=== PATIENT | male | born 1970 | race Caucasian/White ===

== ENCOUNTER 2018-08-23 20:10 | Inpatient (IN) ==
[2018-08-23] MEDS ORDERED: SODIUM CHLORIDE 0.9% 1000ML 1,000 ML IV ONE ×2 (20:13→20:56)
[2018-08-23] MEDS ORDERED: IBUPROFEN 600 MG TAB PO STA (20:19)
[2018-08-23 20:30] LABS: Hematocrit (blood only) 35.1 % (42-52); Hemoglobin 12.4 g/dL (14.0-18.0); Mean Corpuscular Hgb Conc 35.3 g/dL (32-36); Mean Corpuscular Volume 88.6 fL (80-100); Mean Platelet Volume 9.3 fL (7.4-10.4); Platelet Count 143 K/uL (130-400); RDW Coefficient of Variation 13.7 % (11.5-14.5); RDW Standard Deviation 44.4 fL (36.4-46.3); Red Blood Count 3.96 M/uL (4.7-6.1); White Blood Count 8.56 K/uL (4.8-10.8)
--- NOTE | 2018-08-23 20:40 | XRay Report ---
XR chest 1V portable HISTORY: Sepsis COMPARISON: None. FINDINGS: The lungs are clear. Cardiac silhouette is normal in size. No pleural effusions. No pneumot horax. IMPRESSION: No acute process. Electronically signed by: Tavon Gonsalves M.D. 08/23/2018 8:39 PM
[2018-08-23 20:42] LABS: INR 1.1 (0.9-1.1); Partial Thromboplastin Ratio 0.9; Partial Thromboplastin Time 24.2 Seconds (21.0-31.0)
[2018-08-23 20:48] LABS: Alanine Aminotransferase 26 U/L (12-78); Albumin Level 3.8 gm/dl (3.4-5.0); Aspartate Aminotransferase 30 U/L (15-37); BUN Creatinine Ratio 11.9 (10-20); Blood Urea Nitrogen 10 mg/dl (7-18); Calcium 9.1 mg/dl (8.5-10.1); Carbon Dioxide 24 mmol/L (21-32); Chloride 103 mmol/L (98-107); Creatinine Clr Calc Pharmacy 97.1 ml/min; Eosinophils # (auto) 0.01 K/uL (0-0.5); Eosinophils % (auto) 0.1 %; Est GFR (Non-African American) 101.8; Glucose 126 mg/dl (70-99); Immature Granulocytes # (auto) 0.05 K/uL (0.00-0.02); Immature Granulocytes % (auto) 0.6 %; Lymphocytes # (auto) 0.85 K/uL (1.2-3.4); Lymphocytes % (auto) 9.9 %; Magnesium 1.6 mg/dl (1.8-2.4); Monocytes # (auto) 0.48 K/uL (0.11-0.59); Monocytes % (auto) 5.6 %; Neutrophils # (auto) 7.17 K/uL (1.4-6.5); Neutrophils % (auto) 83.8 %; Potassium 3.6 mmol/L (3.5-5.1); Sodium 136 mmol/L (136-145)
[2018-08-23] MEDS ORDERED: MAGNESIUM SULFATE / D5W 1 GM/100 ML BAG IV ONE ×2 (20:50→23:58)
[2018-08-23 20:53] LABS: Albumin Globulin Ratio 0.8 (0.9-2); Alkaline Phosphatase 90 U/L (45-117); Bilirubin,Total 0.8 mg/dl (0.2-1); Creatine Kinase MB < 1.0 ng/ml (0.5-3.6); Globulin 4.5 gm/dl (2.5-4.0); Total Protein 8.3 gm/dl (6.4-8.2); Troponin I < 0.015 ng/ml (0-0.045)
--- NOTE | 2018-08-23 21:07 | CT Scan Report ---
HEAD CT NONCONTRAST CT DOSE: 614.27 mGy.cm HISTORY: syncope TECHNIQUE: Multiaxial CT images of the head were performed without the use of intravenous contrast. A utomated exposure control was utilized for this study. A dose lowering technique was utilized adheri ng to the principles of ALARA. Comparison: None. Findings: The paranasal sinuses and mastoid air cells are clear. The calvarium and skull base are int act. The ventricles and sulci are within normal limits. There is no mass, hematoma, midline shift, or acute infarct. Impression: No acute intracranial abnormality. Electronically signed by: Tavon Gonsalves M.D. 08/23/2018 9:06 PM
[2018-08-23 21:15] LABS: Influenza A virus by PCR Neg for Influ A (Neg); Influenza B virus by PCR Neg for Influ B (Neg)
[2018-08-23 21:51] LABS: Appearance Urine Clear (Clear); Bilirubin Urine Negative (Negative); Blood Urine Negative (Negative); Color Urine Yellow; Glucose Urine UA Negative (Negative); Ketones Urine Negative (Negative); Leukocyte Esterase Urine Negative (Negative); Nitrite Urine Negative (Negative); Protein Urine Negative (Negative); Specific Gravity Urine 1.011 (1.000-1.030); Urobilinogen Urine Negative (Negative)
--- NOTE | 2018-08-23 22:15 | Emergency Department Note ---
Entered by Merline Velázquez acting as a scribe for Kobe Reina DO History of Present Illness General Chief complaint: Illness Stated complaint: Period of unresponsiveness, tachycardia, fever Time Seen by Provider: 08/23/18 20:11 Source: patient and EMS History of Present Illness Onset (ago): day(s) (yesterday) Location: head, neck, upper extremity and lower extremity Quality: + other (illness) Associated symptoms: + fever/chills (fever of 103.6), + headaches (yesterday) and + other (Positive neck stiffness, fatigue, difficulty starting and maintaining urination. Negative abdominal pain, back pain, IV drug use, recent travel); no nausea/vomiting The patient is a 48 year old male who presents to the Emergency Room with complaints of an illness beginning yesterday. As per EMS, the patient's brother called the ambulance as the patient's brother had found him unresponsive in the bathroom. EMS reports the patient stated he had been having a difficult time sleeping lately, difficulty urinating since yesterday, and a fever of 103.6. The patient states he has fatigue, difficulty starting and maintaining urination, a fever, and chills. He states he has had a headache for the past couple of days and some neck stiffness. He denies any nausea, chest pain, SOB, cough, abdominal pain, back pain, IV drug use, recent travel. He reports he has never had anything like this in the past. EMS reports the patient has a history of drug abuse and he has used speed and cocaine in the past. The patient reports the last time he smoked marijuana was a few weeks [employer]. Home Medications Home Medications Medication Instructions Recorded Confirmed Type No Known Home Medications 08/23/18 08/23/18 History Allergies Allergy/AdvReac Type Severity Reaction Status Date / Time No Known Allergies Allergy Unverified 08/23/18 21:02 Past Med/Surg History Medical History No significant past medical history Surgical History No significant past surgical history Family History Other No pertinent family history Social History Feels Safe at Home: Yes Smoking Status: Current every day smoker Hx Substance Use: Yes substance use type: marijuana, crack/cocaine and amphetamines Review of Systems See HPI for pertinent positives & negatives. and A total of 10 systems reviewed and were otherwise negative Physical Exam Vital Signs Vital Signs - 24 hr 08/23/18 20:32 08/23/18 21:04 08/23/18 21:59 Temperature 39.8 C H 38.0 C H Temperature Source Oral Oral Sepsis Recent Fever Within 48 Hours Yes Sepsis Action Taken by Nursing Physician Notified Pulse Rate 124 H Pulse Rate [Bilateral] 106 H 104 H Pulse Rhythm Regular Pulse Rhythm [Bilateral] Regular Regular Pulse Strength Normal Pulse Strength [Bilateral] Normal Normal Respiratory Rate 28 H 25 H 24 Respiratory Effort / Characteristics Non-Labored Spontaneous Non-Labored Spontaneous Non-Labored Spontaneous Respiratory Depth Normal Normal Normal Respiratory Pattern Regular Regular Blood Pressure 112/57 L Blood Pressure [Right Arm] 98/55 L 97/59 L Blood Pressure Mean 75 Blood Pressure Mean [Right Arm] 69 71 Blood Pressure Position Sitting Blood Pressure Position [Right Arm] Sitting Sitting Pulse Oximetry 97 94 95 Oxygen Delivery Method Room Air Room Air Room Air GENERAL: Patient is awake, alert, and in no acute distress. Patient is resting comfortably and showing no signs of anxiety EYES: The conjunctivae are clear. The pupils are round and reactive. EARS, NOSE, MOUTH AND THROAT: The nose is without any evidence of any deformity. Mucous membranes are dry. Tongue is midline NECK: The neck is nontender and supple. RESPIRATORY: Lung sounds diminished in the left lung field. There is no evidence of wheezing rhonchi or rales to auscultation. CARDIOVASCULAR: Tachycardic rate and rhythm noted. There no murmurs rubs or g allops normal S1 normal S2 GASTROINTESTINAL: The abdomen is soft. Bowel sounds are present in all q uadrants. Abdomen is nontender. BACK: No midline tenderness or or step-off noted range of motion in flexion extension as well as rotation no signs of muscle spasm noted. MUSCULOSKELETAL/EXTREMITIES: There is no evidence of gross deformity. Full range of motion is noted in the hips and shoulders. SKIN: There is no obvious evidence of any rash. There are no petechiae, pallor or cyanosis noted. NEUROLOGIC: Patient is awake alert and oriented x3. Strength is symmetric. Patellar reflexes are 2+ bilaterally. Course 2012: The patient was evaluated in room B12, and a complete history and physical examination were performed. 2145: Dr. Mckay, [facility] Hospitalist was notified at this time. Administered Medications Discontinued Medications Sodium Chloride (Nss 1000ml) 1,000 mls @ 999 mls/hr IV .Q1H1M ONE Stop: 08/23/18 21:13 Last Infusion: 08/23/18 21:59 Dose: 0 mls/hr Documented by: [id number] Admin: 08/23/18 20:50 Dose: 999 mls/hr Documented by: [id number] Magnesium Sulfate/Dextrose (Magnesium Sulfate / D5w) 1 gm in 100 mls @ 100 mls/hr IV ONE ONE Stop: 08/23/18 21:49 Last Admin: 08/23/18 21:03 Dose: 100 mls/hr Documented by: [id number] Sodium Chloride (Nss 1000ml) 1,000 mls @ 999 mls/hr IV .Q1H1M ONE Stop: 08/23/18 21:56 Last Admin: 08/23/18 21:03 Dose: 999 mls/hr Documented by: [id number] Ibuprofen (Motrin) 600 mg PO NOW STA Stop: 08/23/18 20:20 Last Admin: 08/23/18 20:49 Dose: 600 mg Documented by: [id number] Medical Decision Making Differential Diagnosis Differential diagnosis: Etiologies such as viral syndrome, otitis, pharyngitis, pneumonia, influenza, meningitis, urinary tract infection, sepsis, bacteremia, as well as others were entertained. Medical Records Attestation: I reviewed the patient's medical records. Home Medications Current Medication List: was personally reviewed by me Laboratory Data Attestation: I reviewed the patient's lab results. Result diagrams: 08/23/18 19:40 08/23/18 19:40 Lab Results 08/23/18 08/23/18 08/23/18 Range/Units 19:40 19:40 19:40 WBC 8.56 (4.8-10.8) K/uL RBC 3.96 L (4.7-6.1) M/uL Hgb 12.4 L (14.0-18.0) g/dL Hct 35.1 L (42-52) % MCV 88.6 (80-100) fL MCH 31.3 (25-34) pg MCHC 35.3 (32-36) g/dL RDW Std Deviation 44.4 (36.4-46.3) fL RDW Coeff of Nathen 13.7 (11.5-14.5) % Plt Count 143 (130-400) K/uL MPV 9.3 (7.4-10.4) fL Immature Gran % (Auto) 0.6 % Neut % (Auto) 83.8 % Lymph % (Auto) 9.9 % Toombs % (Auto) 5.6 % Eos % (Auto) 0.1 % Baso % (Auto) 0.0 % Immature Gran # (Auto) 0.05 H (0.00-0.02) K/uL Neut # (Auto) 7.17 H (1.4-6.5) K/uL Lymph # (Auto) 0.85 L (1.2-3.4) K/uL [place]ombs # (Auto) 0.48 (0.11-0.59) K/uL Eos # (Auto) 0.01 (0-0.5) K/uL Baso # (Auto) 0.00 (0-0.2) K/uL Absolute Nucleated RBC 0.00 (0-0) K/uL Nucleated RBC % (auto) 0.0 % ESR 70 H (0-14) mm/hr PT 11.0 (9.0-12.0) Seconds INR 1.1 (0.9-1.1) APTT 24.2 (21.0-31.0) Seconds PTT Ratio 0.9 Sodium (136-145) mmol/L Potassium (3.5-5.1) mmol/L Chloride (98-107) mmol/L Carbon Dioxide (21-32) mmol/L Anion Gap (3-11) BUN (7-18) mg/dl Creatinine (0.6-1.4) mg/dl Est Cr Clr Drug Dosing ml/min Est GFR ( Amer) Est GFR (Non-Af Amer) BUN/Creatinine Ratio (10-20) Glucose (70-99) mg/dl Lactate (0.4-2.0) mmol/L Calcium (8.5-10.1) mg/dl Magnesium (1.8-2.4) mg/dl Total Bilirubin (0.2-1) mg/dl AST (15-37) U/L ALT (12-78) U/L Alkaline Phosphatase (45-117) U/L CK-MB (CK-2) (0.5-3.6) ng/ml Troponin I (0-0.045) ng/ml C-Reactive Protein (0-0.29) mg/dl Total Protein (6.4-8.2) gm/dl Albumin (3.4-5.0) gm/dl Globulin (2.5-4.0) gm/dl Albumin/Globulin Ratio (0.9-2) Procalcitonin (0-0.5) ng/ml Urine Color Urine Appearance (Clear) Urine pH (4.5-7.5) Ur Specific Wynona (1.000-1.030) Urine Protein (Negative) Urine Glucose (UA) (Negative) Urine Ketones (Negative) Urine Blood (Negative) Urine Nitrite (Negative) Urine Bilirubin (Negative) Urine Urobilinogen (Negative) Ur Leukocyte Esterase (Negative) Influenza Type A (PCR) (Neg) Influenza Type B (PCR) (Neg) 08/23/18 08/23/18 08/23/18 Range/Units 19:40 19:40 20:25 WBC (4.8-10.8) K/uL RBC (4.7-6.1) M/uL Hgb (14.0-18.0) g/dL Hct (42-52) % MCV (80-100) fL MCH (25-34) pg MCHC (32-36) g/dL RDW Std Deviation (36.4-46.3) fL RDW Coeff of Nathen (11.5-14.5) % Plt Count (130-400) K/uL MPV (7.4-10.4) fL Immature Gran % (Auto) % Neut % (Auto) % Lymph % (Auto) % Toombs % (Auto) % Eos % (Auto) % Baso % (Auto) % Immature Gran # (Auto) (0.00-0.02) K/uL Neut # (Auto) (1.4-6.5) K/uL Lymph # (Auto) (1.2-3.4) K/uL [place]ombs # (Auto) (0.11-0.59) K/uL Eos # (Auto) (0-0.5) K/uL Baso # (Auto) (0-0.2) K/uL Absolute Nucleated RBC (0-0) K/uL Nucleated RBC % (auto) % ESR (0-14) mm/hr PT (9.0-12.0) Seconds INR (0.9-1.1) APTT (21.0-31.0) Seconds PTT Ratio Sodium 136 (136-145) mmol/L Potassium 3.6 (3.5-5.1) mmol/L Chloride 103 (98-107) mmol/L Carbon Dioxide 24 (21-32) mmol/L Anion Gap 9.0 (3-11) BUN 10 (7-18) mg/dl Creatinine 0.86 (0.6-1.4) mg/dl Est Cr Clr Drug Dosing 97.1 ml/min Est GFR ( Amer) 118.0 Est GFR (Non-Af Amer) 101.8 BUN/Creatinine Ratio 11.9 (10-20) Glucose 126 H (70-99) mg/dl Lactate (0.4-2.0) mmol/L Calcium 9.1 (8.5-10.1) mg/dl Magnesium 1.6 L (1.8-2.4) mg/dl Total Bilirubin 0.8 (0.2-1) mg/dl AST 30 (15-37) U/L ALT 26 (12-78) U/L Alkaline Phosphatase 90 (45-117) U/L CK-MB (CK-2) < 1.0 (0.5-3.6) ng/ml Troponin I < 0.015 (0-0.045) ng/ml C-Reactive Protein 0.90 H (0-0.29) mg/dl Total Protein 8.3 H (6.4-8.2) gm/dl Albumin 3.8 (3.4-5.0) gm/dl Globulin 4.5 H (2.5-4.0) gm/dl Albumin/Globulin Ratio 0.8 L (0.9-2) Procalcitonin 0.18 (0-0.5) ng/ml Urine Color Urine Appearance (Clear) Urine pH (4.5-7.5) Ur Specific Wyn[place] (1.000-1.030) Urine Protein (Negative) Urine Glucose (UA) (Negative) Urine Ketones (Negative) Urine Blood (Negative) Urine Nitrite (Negative) Urine Bilirubin (Negative) Urine Urobilinogen (Negative) Ur Leukocyte Esterase (Negative) Influenza Type A (PCR) Neg for Influ A (Neg) Influenza Type B (PCR) Neg for Influ B (Neg) 08/23/18 08/23/18 Range/Units 20:51 21:18 WBC (4.8-10.8) K/uL RBC (4.7-6.1) M/uL Hgb (14.0-18.0) g/dL Hct (42-52) % MCV (80-100) fL MCH (25-34) pg MCHC (32-36) g/dL RDW Std Deviation (36.4-46.3) fL RDW Coeff of Nathen (11.5-14.5) % Plt Count (130-400) K/uL MPV (7.4-10.4) fL Immature Gran % (Auto) % Neut % (Auto) % Lymph % (Auto) % [place]ombs % (Auto) % Eos % (Auto) % Baso % (Auto) % Immature Gran # (Auto) (0.00-0.02) K/uL Neut # (Auto) (1.4-6.5) K/uL Lymph # (Auto) (1.2-3.4) K/uL Toombs # (Auto) (0.11-0.59) K/uL Eos # (Auto) (0-0.5) K/uL Baso # (Auto) (0-0.2) K/uL Absolute Nucleated RBC (0-0) K/uL Nucleated RBC % (auto) % ESR (0-14) mm/hr PT (9.0-12.0) Seconds INR (0.9-1.1) APTT (21.0-31.0) Seconds PTT Ratio Sodium (136-145) mmol/L Potassium (3.5-5.1) mmol/L Chloride (98-107) mmol/L Carbon Dioxide (21-32) mmol/L Anion Gap (3-11) BUN (7-18) mg/dl Creatinine (0.6-1.4) mg/dl Est Cr Clr Drug Dosing ml/min Est GFR ( Amer) Est GFR (Non-Af Amer) BUN/Creatinine Ratio (10-20) Glucose (70-99) mg/dl Lactate 1.2 (0.4-2.0) mmol/L Calcium (8.5-10.1) mg/dl Magnesium (1.8-2.4) mg/dl Total Bilirubin (0.2-1) mg/dl AST (15-37) U/L ALT (12-78) U/L Alkaline Phosphatase (45-117) U/L CK-MB (CK-2) (0.5-3.6) ng/ml Troponin I (0-0.045) ng/ml C-Reactive Protein (0-0.29) mg/dl Total Protein (6.4-8.2) gm/dl Albumin (3.4-5.0) gm/dl Globulin (2.5-4.0) gm/dl Albumin/Globulin Ratio (0.9-2) Procalcitonin (0-0.5) ng/ml Urine Color Yellow Urine Appearance Clear (Clear) Urine pH 7.0 (4.5-7.5) Ur Specific Wyn[place] 1.011 (1.000-1.030) Urine Protein Negative (Negative) Urine Glucose (UA) Negative (Negative) Urine Ketones Negative (Negative) Urine Blood Negative (Negative) Urine Nitrite Negative (Negative) Urine Bilirubin Negative (Negative) Urine Urobilinogen Negative (Negative) Ur Leukocyte Esterase Negative (Negative) Influenza Type A (PCR) (Neg) Influenza Type B (PCR) (Neg) Imaging Data Radiologist's Impression: Radiology results as stated below per my review and the radiologist's interpretation: XR chest 1V portable HISTORY: Sepsis COMPARISON: None. FINDINGS: The lungs are clear. Cardiac silhouette is normal in size. No pleural effusions. No pneumothorax. IMPRESSION: No acute process. Electronically signed by: Tavon Gonsalves M.D. 08/23/2018 8:[address]AST CT DOSE: 614.27 mGy.cm HISTORY: syncope TECHNIQUE: Multiaxial CT images of the head were performed without the use of intravenous contrast. Automated exposure control was utilized for this study. A dose lowering technique was utilized adhering to the principles of ALARA. Comparison: None. Findings: The paranasal sinuses and mastoid air cells are clear. The calvarium and skull base are intact. The ventricles and sulci are within normal limits. There is no mass, hematoma, midline shift, or acute infarct. Impression: No acute intracranial abnormality. Electronically signed by: Tavon Gonsalves M.D. 08/23/2018 9:06 PM ECG Data Attestation: I personally reviewed and interpreted this ECG as follows: Indication: altered mental status Rate (beats per minute): 117 Rhythm: sinus tachycardia Findings: + other (no acute ST segments ); no ectopy Comparison ECG Date: no prior available Blood Pressure Blood Pressure Findings: Low blood pressure Blood Pressure Disposition: further management by hospitalist SUKH Borrero The patient is a 48-year-old male who presented to the emergency department by ambulance for an evaluation. The patient was found by his brother sleeping. It was difficult to arouse the patient. The ambulance was called out initially as an altered mental status. When they arrived on scene the patient was awake and alert. He was tachycardic and was found to have a fever. I received a medical command call because they wanted to give the patient IV Tylenol and IV fluids. The patient was given a gram of IV Tylenol as well as a liter of normal saline. The patient arrives at the emergency department awake and alert. He does state that he has had chills as well as generalized weakness for the last 24-48 hours. He has no other specific complaints. He did not complain of any back pain or chest pain. He denied having any trouble breathing. He denied having any rash or recent traveling. He was found to have tachycardia and low blood pressure. He was treated with further IV fluids in the emergency department. He was also given Motrin. At this time no definite source for the patient's fever could be found. His white blood cell count is not significantly elevated. He did have a mild anemia. He denies any current IV drug abuse. His chest x-ray showed no si gns of pneumonia and his urinalysis did not appear to be consistent with urinary tract infection. Further testing is still pending. I will defer antibiotic coverage at this time until the patient can be evaluated by the admitting team. I discussed with the on-call [facility] hospitalist. They have agreed to evaluate the patient in the emergency department for further management and disposition. The patient was treated with IV magnesium. Impression & Plan Fever, Hypotension, Hypomagnesemia Discharge Plan Visit Data Chief Complaint: Illness Stated Complaint: Period of unresponsiveness, tachycardia, fever ED Provider: Kobe Reina Discharge Problem: Fever, Hypotension, Hypomagnesemia Patient Disposition: Being Evaluated by Hospitalist Forms Stand Alone Forms: My [facility] Prescriptions Prescriptions: No Action No Known Home Medications RF: 0 Referrals Referrals: PCP,NO [Primary Care Provider] - Discharge Problem: Fever Qualifiers: Fever type: unspecified Qualified Code(s): R50.9 - Fever, unspecified Hypotension Qualifiers: Hypotension type: unspecified hypotension type Qualified Code(s): I95.9 - Hypotension, unspecified The scribe's documentation has been prepared under my direction and personally reviewed by me in its entirety. I confirm that the note above accurately refl ects all work, treatment, procedures, and medical decision making performed by me.
[2018-08-23 22:24] LABS: Amphetamines+Metham, Urine Pos (Neg); Barbiturates, Urine Neg (Neg); Benzodiazepine, Urine Neg (Neg); Cocaine, Urine Neg (Neg); MDMA (Ecstacy), Urine Neg (Neg); Methadone, Urine Neg (Neg); Opiate, Urine Neg (Neg); Phencyclidine, Urine Neg (Neg)
[2018-08-23 22:34] LABS: Lyme Ab IgG w/WB Rflx Negative (Negative); Lyme Ab IgM w/WB Rflx Negative (Negative)
--- NOTE | 2018-08-23 23:01 | History & Physical Report ---
Date of Service August 23, 2018 Assessment & Plan (1) Fever: 48yo previously healthy male presents with f/c, fatigue and urinary hesitancy x 2 days. Fever and fatigue in the setting of urinary symptoms concerning for likely prostatitis -Febrile to 39.8, tachycardic 100s-120s, mildly hypotensive with normal WBC -Lactate and procal normal -ESR and CRP elevated -UA negative -UCx ordered -BC x 2 pending -CXR negative -CT head negative -Lyme and influenza negative -Ehrlichiosis testing pending -Rectal exam concerning for prostatitis -Received 3L NS IVFs and iburprofen 600mg in the ED -Started on Levaquin 500mg IV daily -Continue IVFs NS 100cc/hr Tachycardia and mild hypotension likely in the setting of infection as above -No cp or sob reported -Troponin negative -EKG 117 sinus tach Qtc 412 Concern for possible amphetamine use which could also explain fever and tachycardia -Utox positive for amphetamines (reported to have used in the past in the ED) Anemia -Hgb 12.4, MCV 88 -Hemeoccult positive but in the setting of multiple external hemorrhoids possibly hemorrhoidal in nature, no hematochezia/melena reported and no GI symptoms -Continue to monitor CBC -Consider outpatient work up if remains stable Hypomagnesemia -Mag 1.6 -Received 1gm Mag sulfate in the ED -1gm Mag sulfate IV ordered DVT prop: SCDs only and encourage ambulation Code: Full Dispo: med/surg telemetry (2) Hypomagnesemia: (3) Prostatitis: History of Present Illness Chief Complaint: Unresponsiveness Primary Care Provider: NO PCP 48yo previously healthy male presents with fever, chills, fatigue and urinary hesitancy x 2 days. Describes difficulty starting and maintaining urinary stream with mild discomfort "feels like a pinch" but no burning sensation x 2 days. A/w fever, chills and headache. Had 2 episodes of headache 2 days ago and yesterday, frontal 7-8/10, sharp in nature, not associated with photophobia/phonophobia, or nausea. Denies dizziness, cp, sob, abdominal pain, n/v, d/c, hematochezia, dark stools, hematuria. No falls or LOC. Surgical hx: appendectomy in 1988 and tonsillectomy in 1976 Social hx: smokes 6 cig/day now, smoking for >25 yrs >1 pack/day, alcohol use decreased in recent years only had 4 beers in 2018, reports smoking marijuana last used 3 weeks ago, denied any other recreational drug use Allergies Allergy/AdvReac Type Severity Reaction Status Date / Time No Known Allergies Allergy Unverified 08/23/18 21:02 Home Medications Home Medications Medication Instructions Recorded Confirmed Type No Known Home Medications 08/23/18 08/23/18 History Past Med/Surg History Medical History No significant past medical history Surgical History No significant past surgical history Family History Other No pertinent family history Social History Preferred Language: Salvadorean Communication Ability: Effective General Dentist/Owner Required: No Beliefs That Will Affect Care: None Current Living Situation: Family Current Living Situation Comment: brother Feels Safe at Home: Yes Safety Concerns: Feels Safe At This Time Smoking Status: Current every day smoker Tobacco Type: cigarettes Cigarettes Per Day: 6-7 Hx Alcohol Use: No Hx Substance Use: Yes substance use type: marijuana Review of Systems Review of Systems: As per HPI Physical Exam Physical Exam: General: In NAD HEENT: PERRL, nares clear, moist mucous membranes CV: RRR, no m/r/g PULM: Bibasilar mild crackles appreciated, equal breath sounds bilaterally ABDOMEN: +BS, non-distended, non-tender to palpation in all quadrants LE: no calf TTP, no LE edema Rectal exam: moderately boggy and tender prostate Results & Data Vital Signs (Past 12 Hours) Vital Signs Temp Pulse Pulse Resp BP BP Pulse Ox 08/23/18 21:59 38.0 C H 104 H 24 97/59 L 95 08/23/18 21:04 106 H 25 H 98/55 L 94 08/23/18 20:32 39.8 C H 124 H 28 H 112/57 L 97 Laboratory Results Abnormal lab results 08/23/18 08/23/18 08/23/18 Range/Units 19:40 19:40 19:40 RBC 3.96 L (4.7-6.1) M/uL Hgb 12.4 L (14.0-18.0) g/dL Hct 35.1 L (42-52) % Immature Gran # (Auto) 0.05 H (0.00-0.02) K/uL Neut # (Auto) 7.17 H (1.4-6.5) K/uL Lymph # (Auto) 0.85 L (1.2-3.4) K/uL ESR 70 H (0-14) mm/hr Glucose 126 H (70-99) mg/dl Magnesium 1.6 L (1.8-2.4) mg/dl C-Reactive Protein 0.90 H (0-0.29) mg/dl Total Protein 8.3 H (6.4-8.2) gm/dl Globulin 4.5 H (2.5-4.0) gm/dl Albumin/Globulin Ratio 0.8 L (0.9-2) U Amphetamin/Meth Scrn (Neg) 08/23/18 Range/Units 21:18 RBC (4.7-6.1) M/uL Hgb (14.0-18.0) g/dL Hct (42-52) % Immature Gran # (Auto) (0.00-0.02) K/uL Neut # (Auto) (1.4-6.5) K/uL Lymph # (Auto) (1.2-3.4) K/uL ESR (0-14) mm/hr Glucose (70-99) mg/dl Magnesium (1.8-2.4) mg/dl C-Reactive Protein (0-0.29) mg/dl Total Protein (6.4-8.2) gm/dl Globulin (2.5-4.0) gm/dl Albumin/Globulin Ratio (0.9-2) U Amphetamin/Meth Scrn Pos H (Neg) Code Status & VTE Plan Code Status Full VTE Prophylaxis Plan VTE Prophylaxis will be ordered: Yes Reason for no VTE drug order: Contraindicated Supervising Physician Co-Signing Physician Notes Attending addendum: I have physically seen this patient, have supervised the medical residents activities, and agree with the H&P unless as otherwise noted. Assessment and Plan: Symptoms suggestive of possible developing sepsis/fever/fatigue/tachycardia/mild hypotension/main complaint is urinary hesitancy and discomfort- Follow urine culture and sensitivity. Follow blood cultures. At PSA. Placed empirically on Levaquin 500 mg IV daily. Continue rehydration with normal saline 100 cc/h. Monitor urine drug screen for confirmation or refutation of amphetamine use. Hypomagnesemia repleted both orally and IV. Remainder of orders and notations as noted. (1) Fever Fever type: unspecified Qualified Code(s): R50.9 - Fever, unspecified
[2018-08-23 23:11] LABS: Prostate Specific Antigen 0.342 ng/ml (0-4)
[2018-08-23] MEDS ORDERED: ONDANSETRON INJ 2 MG/ML 2 ML VIAL IV PRN (23:58)
[2018-08-23] MEDS ORDERED: POLYETHYLENE (MIRALAX) 17 GM PACK PO PRN (23:58)
[2018-08-23] MEDS ORDERED: ALUMINUM/MAGNESIUM SUSP 30 ML UDC PO PRN (23:58)
[2018-08-24] MEDS: LEVOFLOXACIN/D5W 500 MG/100 ML BAG IV SCH (00:41)
[2018-08-24] MEDS: SODIUM CHLORIDE 0.9% 1000ML 1,000 ML IV SCH ×3 (00:41→22:28)
[2018-08-24] MEDS: ACETAMINOPHEN 325 MG TAB PO PRN ×2 (05:45→15:35)
[2018-08-24 07:16] LABS: Basophils # (auto) 0.01 K/uL (0-0.2); Basophils % (auto) 0.1 %; Hematocrit (blood only) 30.7 % (42-52); Hemoglobin 10.6 g/dL (14.0-18.0); Immature Granulocytes # (auto) 0.09 K/uL (0.00-0.02); Lymphocytes % (auto) 8.9 %; Mean Corpuscular Hgb Conc 34.5 g/dL (32-36); Mean Corpuscular Volume 90.3 fL (80-100); Mean Platelet Volume 8.9 fL (7.4-10.4); Monocytes # (auto) 0.53 K/uL (0.11-0.59); Monocytes % (auto) 5.9 %; Neutrophils # (auto) 7.51 K/uL (1.4-6.5); Neutrophils % (auto) 84.1 %; Platelet Count 106 K/uL (130-400); RDW Coefficient of Variation 13.7 % (11.5-14.5); RDW Standard Deviation 45.2 fL (36.4-46.3); White Blood Count 8.94 K/uL (4.8-10.8)
[2018-08-24 07:43] LABS: BUN Creatinine Ratio 18.5 (10-20); Calcium 8.3 mg/dl (8.5-10.1); Creatinine Clr Calc Pharmacy 141.6 ml/min; Est GFR (African American) 137.8; Est GFR (Non-African American) 118.9; Potassium 3.2 mmol/L (3.5-5.1)
[2018-08-24] MEDS ORDERED: POTASSIUM CHLORIDE 20 MEQ TABCR PO STA (08:20)
[2018-08-24] MEDS ORDERED: Nursing to Pharmacy Communication ONE ×2 (16:21→23:25)
--- NOTE | 2018-08-24 17:10 | Hospitalist Progress Note ---
Date of Service August 24, 2018 Assessment & Plan (1) Sepsis: 48-year-old white male was admitted last night on August 23, 2018 because of sepsis and associated mental status changes and hypotensive which fit possible early sepsis, and he was found has source of infection possible from proctitis, has been on antibiotic of Levaquin, he continues spiking fever this afternoon morning 38.2, will continue supportive care IV fluid IV antibiotic and follow for culture and sensitivity the floor because of treatment for acute prostatitis possible 3 weeks, prescription. We will continue current antibiotic, infectious disease consultation if needed (2) Fever: See above (3) Hypomagnesemia: Replaced (4) Prostatitis: See above DVT and prophylaxis, increase activity and PT OT, (5) Anemia: Etiology unknown, with a history of hemorrhoid stool Hemoccult positive, will check iron panel, vitamin B12 folate acid level, (6) Hypokalemia: Will review and follow-up, (7) Hypotensive episode: Likely because of sepsis, is improving, (8) GI bleeding: Likely from hemorrhoid, will continue follow-up Subjective Generally feeling tired but fair appetite, no more confused, still spiking fever, Review of Systems Review of Systems: All systems reviewed & are unremarkable except as noted in HPI & below Physical Exam Physical Exam: General Appearance: Lethargic tired, much older than his age, no apparent distress, Eyes: normal inspection, PERRL, EOMI, sclerae normal ENT: normal ENT inspection, hearing grossly normal, pharynx normal Neck: supple, no adenopathy, thyroid normal, no JVD, no carotid bruits, trachea midline Respiratory/Chest: chest non-tender, decreased breath sounds, no respiratory distress, no accessory muscle use, rales, wheezing Cardiovascular: regular rate, rhythm, no JVD, no murmur Abdomen: normal bowel sounds, non tender, soft, no organomegaly, Extremities: normal range of motion, non-tender, normal inspection, no pedal edema, no calf tenderness, normal capillary refill, pelvis stable, joint has no limited range of motion, capillary refill is normal, no cyanosis clubbing Neurologic/Psychiatric: circus 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
[2018-08-24 18:21] LABS: Iron 17 mcg/dl (35-175)
[2018-08-24 18:27] LABS: Folate (Folic Acid) 8.33 ng/ml (>5.38)
[2018-08-25] MEDS: LEVOFLOXACIN/D5W 500 MG/100 ML BAG IV SCH ×2 (01:47→23:31)
[2018-08-25] MEDS: ACETAMINOPHEN 325 MG TAB PO PRN ×4 (05:15→23:30)
[2018-08-25] MEDS ORDERED: OXYCODONE HCL IR 5 MG TAB (IMMEDIATE RELEASE) PO STA (05:43)
[2018-08-25] MEDS: SODIUM CHLORIDE 0.9% 1000ML 1,000 ML IV SCH ×3 (05:59→19:42)
[2018-08-25 08:24] LABS: BUN Creatinine Ratio 17.4 (10-20); Calcium 8.5 mg/dl (8.5-10.1); Creatinine Clr Calc Pharmacy 149.2 ml/min; Est GFR (African American) 140.8; Est GFR (Non-African American) 121.5; Magnesium 2.2 mg/dl (1.8-2.4); Potassium 3.3 mmol/L (3.5-5.1)
[2018-08-25 08:27] LABS: Albumin Globulin Ratio 0.7 (0.9-2); Bilirubin,Total 0.7 mg/dl (0.2-1); Globulin 4.1 gm/dl (2.5-4.0); Phosphorus 1.8 mg/dl (2.5-4.9); Total Protein 7.1 gm/dl (6.4-8.2)
--- NOTE | 2018-08-25 10:47 | Infectious Disease Consult ---
Date of Consultation August 25, 2018 Assessment & Plan (1) Gram positive sepsis: Patient with clinical picture of gram-positive sepsis, with symptomatology suggestive of prostatitis but urinalysis speaks against this diagnosis. Not clear whether blood culture represents contaminant or true pathogen. Has clinically improved with levofloxacin. Would continue for now and await final identification and repeat blood culture results. Studies for Anaplasma ordered. Will follow. History of Present Illness Reason for Consultation: Bacteremia Attending Physician: Kedar Aguero MD, PhD, [facility] History of Present Illness 48-year-old male in prior good health was well until 2-3 days prior to admission when he began to notice difficulty with urination with difficulty starting and maintaining his urine stream. No significant associated dysuria or flank pain. Patient then developed fever with chills, headache, body aches, and eventually was found poorly responsive by his brother and brought to the hospital for further management. He was felt to have acute prostatitis and started on levofloxacin and has improved clinically. Was febrile last night, but this morning afebrile and feeling better. Now urinating almost normally. Single culture from admission growing gram-positive cocci. Of note is decrease in abrahan telet count from admission. Liver enzymes normal. Urinalysis without pyuria or hematuria. No other significant travel or exposure history. No known tick bites. Lyme serology negative. Allergies Allergy/AdvReac Type Severity Reaction Status Date / Time No Known Allergies Allergy Unverified 08/23/18 21:02 Home Medications Home Medications Medication Instructions Recorded Confirmed Type No Known Home Medications 08/23/18 08/23/18 History Patient History Medical History No significant past medical history Surgical History No significant past surgical history Family History Other No pertinent family history Social History Preferred Language: Nepali Communication Ability: Effective Auto Inspector Required: No Beliefs That Will Affect Care: None Current Living Situation: Family Current Living Situation Comment: brother Feels Safe at Home: Yes Safety Concerns: Feels Safe At This Time Smoking Status: Current every day smoker Tobacco Type: cigarettes Cigarettes Per Day: 6-7 Hx Alcohol Use: No Hx Substance Use: Yes substance use type: marijuana Review of Systems Review of Systems: All systems reviewed & are unremarkable except as noted in HPI & below Physical Exam Constitutional: WD/WN, vitals as above comfortable; no acute distress Eyes: PERRL, conjunctivae normal, anicteric sclerae ENMT: external ear and nose normal, oropharynx normal Neck: trachea midline, no thyromegaly neck nontender Respiratory: normal respiratory effort, lungs clear to auscultation normal percussion; does not use accessory muscles Cardiovascular: Rate/Rhythm: regular rate and regular rhythm Heart Sounds: normal S1 and normal S2; no gallop, no murmur and no cardiac rub Vessels: normal peripheral pulses; no JVD Gastrointestinal (Abdomen): normal bowel sounds, soft, nontender, no hepatosplenomegaly Musculoskeletal: no cyanosis or clubbing, extremities motor strength 5/5 Spine: thoracic spine normal to inspection and lumbar spine normal to inspection; no cervical spinal tenderness Skin: no rashes, warm and dry normal turgor; no lesions Neurologic: patellar DTR's 2+ bilat, sensation intact no focal motor deficits Psychiatric: A+Ox3, euthymic affect Orientation: cooperative Lymphatic: no cervical or axillary lymphadenopathy no inguinal lymphadenopathy Results & Data Vital Signs (Past 12 Hours) Vital Signs Temp Pulse Pulse Resp BP BP Pulse Ox 08/25/18 07:43 95 H 08/25/18 07:00 37.4 C 103 H 18 102/57 L 96 08/25/18 00:00 101 H 08/24/18 23:44 37.8 C H 104 H 18 108/65 98 Laboratory Results BMP 08/25/18 07:35 Sodium 137 Potassium 3.3 L Chloride 109 H Carbon Dioxide 21 BUN 10 Creatinine 0.56 L Glucose 103 H Calcium 8.5 Liver Function 08/25/18 Range/Units 07:35 Total Bilirubin 0.7 (0.2-1) mg/dl AST 32 (15-37) U/L ALT 24 (12-78) U/L Alkaline Phosphatase 67 (45-117) U/L Albumin 3.0 L (3.4-5.0) gm/dl Diagnostic Findings Microbiology 08/23/18 20:51 Blood Blood Culture - Preliminary No growth to date. 08/23/18 20:51 Blood Blood Culture - Preliminary Gram positive cocci XR chest 1V portable HISTORY: Sepsis COMPARISON: None. FINDINGS: The lungs are clear. Cardiac silhouette is normal in size. No pleural effusions. No pneumothorax. IMPRESSION: No acute process. Electronically signed by: Tavon Gonsalves M.D. 08/23/2018 8:39 PM Dictated: 08/23/182037 Transcribed: 08/23/182037
--- NOTE | 2018-08-25 17:17 | Hospitalist Progress Note ---
Date of Service August 25, 2018 Assessment & Plan (1) Sepsis: 48-year-old white male was admitted last night on August 23, 2018 because of sepsis and associated mental status changes and hypotensive which fit possible early sepsis, and he was found has source of infection possible from proctitis, 1 out of 2 blood culture positive for gram positive cocci, which support the diagnosis of bacteremia has been on antibiotic of Levaquin, he continues spiking fever this afternoon morning 38.2 after admission, however T-max was trends down, today has no more spiking fever Infectious disease input appreciated, repeated blood culture were sent will continue supportive care IV fluid IV antibiotic and follow for culture and sensitivity because of treatment for acute prostatitis possible 3 weeks, prescription. (2) Fever: See above (3) Hypomagnesemia: Replaced (4) Prostatitis: See above DVT and prophylaxis, increase activity and PT OT, (5) Anemia: Etiology unknown, with a history of hemorrhoid stool Hemoccult positive, will check iron panel, vitamin B12 folate acid level, (6) Hypokalemia: replaced and follow-up, (7) Hypotensive episode: Likely because of sepsis, is improving/resolved (8) GI bleeding: Likely from hemorrhoid, will continue follow-up (9) Bacteremia: 1 out of 2 tube positive of gram-positive cocci, will follow up, repeat blood culture sent (10) Left facial pain: Associated with lower jaw posterior to local tenderness in physical exam, possible periodontal or tooth abscess, will check x-ray and follow-up, oral surgeon consult if needed And add metronidazole for possible dental abscess Subjective No more dysuria urgency or frequency Complaint left lower jaw tingling anomalies and local tenderness, history of toothache, otherwise afebrile Review of Systems Review of Systems: All systems reviewed & are unremarkable except as noted in HPI & below Physical Exam Physical Exam: General Appearance: Lethargic tired, much older than his age, no apparent distress, Eyes: normal inspection, PERRL, EOMI, sclerae normal ENT: normal ENT inspection, hearing grossly normal, pharynx normal left lower jaw posterior area local tenderness Neck: supple, no adenopathy, thyroid normal, no JVD, no carotid bruits, trachea midline Respiratory/Chest: chest non-tender, decreased breath sounds, no respiratory distress, no accessory muscle use, rales, wheezing Cardiovascular: regular rate, rhythm, no JVD, no murmur Abdomen: normal bowel sounds, non tender, soft, no organomegaly, Extremities: normal range of motion, non-tender, normal inspection, no pedal edema, no calf tenderness, normal capillary refill, pelvis stable, joint has no limited range of motion, capillary refill is normal, no cyanosis clubbing Neurologic/Psychiatric: scientific editor II-XII nml as tested, no motor/sensory deficits, alert, normal mood/affect, oriented x 3 Skin: normal color, warm/dry, no rash Lymphatic: no adenopathy Results & Data Vital Signs (Past 12 Hours) Vital Signs Temp Pulse Pulse Resp BP BP Pulse Ox 08/25/18 15:14 88 08/25/18 15:00 37.1 C 100 H 107/70 100 08/25/18 12:00 36.7 C 85 18 101/64 100 08/25/18 07:43 95 H 08/25/18 07:00 37.4 C 103 H 18 102/57 L 96 (1) Fever Fever type: unspecified Qualified Code(s): R50.9 - Fever, unspecified
[2018-08-25] MEDS ORDERED: POTASSIUM PHOS 3 MMOL/1 ML INFUSION IV STA (17:18)
[2018-08-25] MEDS ORDERED: POTASSIUM CHLORIDE 10 MEQ TABCR PO STA (17:18)
[2018-08-25] MEDS ORDERED: POTASSIUM PHOSPHATE 21 MMOL in SODIUM CHLORIDE 0.9% 500 ML IV ONE (17:30)
[2018-08-25] MEDS: metroNIDAZOLE 500 MG/100 ML BAG IV SCH (18:36)
--- NOTE | 2018-08-25 18:36 | XRay Report ---
XR mandible min 4V routine CLINICAL HISTORY: left lower jaw posterior to local tenderness COMPARISON STUDY: No previous studies for comparison. FINDINGS: 5 views of mandible are provided for interpretation. No fractures or destructive lesions ar e visualized. There is no evidence for TMJ dislocation. There is a possible right molar dental caries . IMPRESSION: 1. No fractures dislocations or destructive lesions are visualized. Electronically signed by: Shaquille Madrigal M.D. 08/25/2018 6:35 PM
[2018-08-25] MEDS ORDERED: KETOROLAC TROMETHAMINE 15 MG/ML VIAL IV ONE (23:40)
[2018-08-26] MEDS ORDERED: KETOROLAC TROMETHAMINE 15 MG/ML VIAL ONE (00:02)
[2018-08-26] MEDS: metroNIDAZOLE 500 MG/100 ML BAG IV SCH ×2 (01:53→10:07)
[2018-08-26] MEDS: SODIUM CHLORIDE 0.9% 1000ML 1,000 ML IV SCH ×2 (04:29→07:49)
[2018-08-26] MEDS: KETOROLAC TROMETHAMINE 15 MG/ML VIAL IV PRN ×2 (08:44→15:14)
[2018-08-26 09:14] LABS: BUN Creatinine Ratio 14.8 (10-20); Calcium 8.6 mg/dl (8.5-10.1); Creatinine Clr Calc Pharmacy 130.5 ml/min; Est GFR (African American) 133.3; Magnesium 2.1 mg/dl (1.8-2.4)
--- NOTE | 2018-08-26 15:00 | Hospitalist Progress Note ---
Date of Service August 26, 2018 Assessment & Plan (1) Sepsis: 48-year-old white male was admitted last night on August 23, 2018 because of sepsis and associated mental status changes and hypotensive which fit possible early sepsis, and he was found possible source of infection possible from proctitis, Possible oral abscess, with left lower jaw swelling, sign of pain started from yesterday and was report of left lower jaw, however today has significant swelling possible local abscess, x-ray yesterday was unremarkable, 1 out of 2 blood culture positive for gram positive cocci, which support the diagnosis of bacteremia initially has been on antibiotic of Levaquin, was spiking fever 2 days ago, was 38.2 after admission, T-max was trends down, today has no more spiking fever talked Infectious disease, changed antibiotic to Unasyn will continue supportive care IV fluid , IV antibiotic and follow for culture and sensitivity because of treatment for acute prostatitis possible 3 weeks, prescription. Will order maxillofacial CT to rule out abscess, (2) Fever: See above (3) Hypomagnesemia: Replaced (4) Prostatitis: See above DVT and prophylaxis, increase activity and PT OT, (5) Anemia: Etiology unknown, with a history of hemorrhoid stool Hemoccult positive, checked iron panel, vitamin B12 folate acid level, were unremarkable (6) Hypokalemia: replaced and follow-up, (7) Hypotensive episode: Likely because of sepsis, is improving/resolved (8) GI bleeding: Likely from hemorrhoid, will continue follow-up (9) Bacteremia: 1 out of 2 tube positive of gram-positive cocci, will follow up, repeat blood culture sent (10) Left facial pain: Now is obvious possible left mandible soft tissue infection and possible facial abscess, x-ray is no acute fracture Check CT of the left maxillofacial area, oral surgeon consult if there is abscess, follow-up Subjective Left lower jaw and surrounding soft tissue swelling , associated limited opening abnormalities, feel tired", Review of Systems Review of Systems: All systems reviewed & are unremarkable except as noted in HPI & below Physical Exam Physical Exam: general Appearance: obesity, mild pale, much older than her age, no apparent distress, pleasant and conversational, Eyes: normal inspection, PERRL, EOMI, sclerae normal ENT: Left lower jaw no swelling, tender to palpation, l3x2cm induration, imited range of opening of mouth, normal ENT inspection, hearing grossly normal, pharynx normal Neck: supple, no adenopathy, thyroid normal, no JVD, no carotid bruits, trachea midline Respiratory/Chest: chest non-tender, decreased breath sounds, no accessory muscle use, rales, wheezing Cardiovascular: regular rate, rhythm, no JVD, no murmur Abdomen: normal bowel sounds, non tender, soft, no organomegaly, Extremities: no edema normal range of motion, non-tender, normal inspection, no calf tenderness, no cyanosis clubbing Neurologic/Psychiatric: 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 nml as tested, no motor/sensory deficits, alert, normal mood/affect, oriented x 3 Skin: normal color, warm/dry, no rash Lymphatic: no adenopathy Results & Data Vital Signs (Past 12 Hours) Vital Signs Temp Pulse Pulse Resp BP Pulse Ox 08/26/18 12:22 36.9 C 97 H 18 114/76 100 08/26/18 08:00 78 08/26/18 07:41 37.5 C 83 20 115/68 99 08/26/18 04:22 36.9 C 75 20 100/62 98 08/26/18 03:36 86 Laboratory Results - last 24 hr 08/26/18 08:38 Sodium 140 Potassium 4.0 D Chloride 109 H Carbon Dioxide 25 Anion Gap 5.0 BUN 10 Creatinine 0.64 Est Cr Clr Drug Dosing 130.5 Est GFR ( Amer) 133.3 Est GFR (Non-Af Amer) 115.0 BUN/Creatinine Ratio 14.8 Glucose 105 H Calcium 8.6 Magnesium 2.1 Microbiology 08/23/18 20:51 Blood Blood Culture - Final Streptococcus intermedius 08/23/18 21:18 Urine,Clean Catch Urine Culture - Final No growth - less than 1,000 colonies/mL. 08/24/18 17:34 Blood Blood Culture - Preliminary No growth to date. 08/24/18 17:27 Blood Blood Culture - Preliminary No growth to date. (1) Fever Fever type: unspecified Qualified Code(s): R50.9 - Fever, unspecified
[2018-08-26 15:13] LABS: Amphetamine Urine, Confirm 1140 NG/ML (CUTOF=250)
[2018-08-26] MEDS ORDERED: IOVERSOL 100ml IV PRN (15:32)
[2018-08-26] MEDS: AMPICILLIN/SULBACTAM SOD 3,000 MG in 0.9 % SODIUM CHLORIDE 100 ML IV SCH ×2 (15:46→20:20)
--- NOTE | 2018-08-26 15:50 | CT Scan Report ---
CT facial bones w con CT DOSE: 626.97 mGycm CLINICAL HISTORY: facial abscess TECHNIQUE: Helical images were acquired in the transverse plane during intravenous administration of 94 cc of Optiray 320. A dose lowering technique was utilized adhering to the principles of ALARA. COMPARISON STUDY: None. FINDINGS: No fractures are visualized. There is extensive left-sided facial swelling. This appears centered on the left mandible. There are no fluid collections to indicate a discrete abscess. There is edema within the left masseter muscle. There is mild secondary edema within the left parotid and submandibular glands. There is left-sided c ervical lymphadenopathy, likely reactive. There is no evidence of acute sinusitis. No destructive mandibular lesions are visualized. There is no evidence for airway compromise. IMPRESSION: 1. Extensive superficial left-sided facial edema. 2. Left-sided cervical lymphadenopathy likely reactive. 3. There are no defined fluid collections to indicate a focal abscess. Electronically signed by: Shaquille Madrigal M.D. 08/26/2018 3:49 PM
[2018-08-26 16:50] LABS: Ehrlichia chaff IgG Ab <1:64 (<1:64); Ehrlichia chaff IgM Ab <1:20 (<1:20)
[2018-08-26] MEDS ORDERED: ACETAMINOPHEN 500 MG TAB PO STA (19:18)
[2018-08-27] MEDS: KETOROLAC TROMETHAMINE 15 MG/ML VIAL IV PRN ×2 (00:42→08:33)
[2018-08-27] MEDS: AMPICILLIN/SULBACTAM SOD 3,000 MG in 0.9 % SODIUM CHLORIDE 100 ML IV SCH ×4 (03:34→20:55)
--- NOTE | 2018-08-27 16:12 | Hospitalist Progress Note ---
Date of Service August 27, 2018 Assessment & Plan (1) Sepsis: 48-year-old white male was admitted last night on August 23, 2018 because of sepsis and associated mental status changes and hypotensive which fit possible early sepsis, and he was found possible inityial source of infection possible from proctitis, later , feel the infection is from there left lower molar infection which causing facial cellulitis Facial CT was done and there was no oral abscess, sign of pain started from yesterday and was report of left lower jaw, however yesterday has significant swelling , associated with fever, talked to infectious disease Unasyn started, the T-max possible come down 1 out of 2 blood culture positive for gram positive cocci, which support the diagnosis of bacteremia , sensitivity still not coming back, repeat blood culture sent so far negative initially has been on antibiotic of Levaquin, will continue supportive care IV fluid , IV antibiotic and follow for culture and sensitivity because of possible treatment for acute prostatitis initially, abx possible need total 3 weeks If blood culture continue negative, T-max continue trends down, facial swelling improving, possible able to be discharged in weekend, Patient has no dentist, but he has dentist coverage from his insurance, encouraged to search a dentist and make appointment to be seen as soon as possible (2) Fever: See above (3) Hypomagnesemia: Replaced (4) Prostatitis: See above DVT and prophylaxis, increase activity and PT OT, (5) Anemia: Etiology unknown, with a history of hemorrhoid stool Hemoccult positive, checked iron panel, vitamin B12 folate acid level, were unremarkable (6) Hypokalemia: replaced and follow-up, (7) Hypotensive episode: Likely because of sepsis, is improving/resolved (8) GI bleeding: Likely from hemorrhoid, will continue follow-up (9) Bacteremia: 1 out of 2 tube positive of gram-positive cocci, will follow up, repeat blood culture sent (10) Left facial pain: see above Subjective Left facial pain swelling seems a little bit better, able to open up more mouth , reported right sub mandible local area minimally tender to palpation as well, which is new however still has significant swelling, per report yesterday was possible fever up to 39 however possible not true Today still have mild fever 38.1, T-max is coming down, Denies sinus symptoms, Review of Systems Review of Systems: All systems reviewed & are unremarkable except as noted in HPI & below Physical Exam Physical Exam: general Appearance: obesity, mild pale, much older than her age, no apparent distress, pleasant and conversational, Eyes: normal inspection, PERRL, EOMI, sclerae normal ENT: Left lower jaw has swelling as yesterday, less tender ands hot to palpation, 3x2cm induration, limited range of opening of mouth, but is better than yesterday left lower last molar was tender in palpation, normal ENT inspection, hearing grossly normal, pharynx normal Neck: supple, no adenopathy, thyroid normal, no JVD, no carotid bruits, trachea midline Respiratory/Chest: chest non-tender, decreased breath sounds, no accessory muscle use, rales, wheezing Cardiovascular: regular rate, rhythm, no JVD, no murmur Abdomen: normal bowel sounds, non tender, soft, no organomegaly, Extremities: no edema normal range of motion, non-tender, normal inspection, no calf tenderness, no cyanosis clubbing Neurologic/Psychiatric: 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
[2018-08-27 19:02] LABS: Anaplasma phagocytophila IgM <1:20 (<1:20)
[2018-08-27] MEDS: ACETAMINOPHEN 325 MG TAB PO PRN (19:23)
--- NOTE | 2018-08-27 21:47 | Infectious Disease Progress Nt ---
Date of Service August 27, 2018 Assessment & Plan (1) Streptococcal bacteremia: 48-year-old male admitted with streptococcal bacteremia now with what appears to be dental abscess with facial infection. Patient changed to IV Unasyn, appears to be showing early clinical response. Length of IV antibiotics will be determined by clinical response. Will follow. (2) Dental abscess: Subjective Patient seen in follow-up for bacteremia. Events of yesterday noted. Patient developed acute jaw swelling with evidence of abscess tooth. As discussed, started on Unasyn. Facial swelling improved today. Still with fever, but trending downward. Blood isolate identified as Streptococcus intermedius. Review of Systems Review of Systems: All systems reviewed & are unremarkable except as noted in HPI & below Physical Exam Constitutional: WD/WN, vitals as above comfortable; no acute distress Eyes: PERRL, conjunctivae normal, anicteric sclerae ENMT: Ears: no external ear abnormality Nose: no external nose abnormality Left jaw swelling and tenderness Neck: trachea midline, no thyromegaly neck nontender Respiratory: normal respiratory effort, lungs clear to auscultation normal percussion; no respiratory distress Cardiovascular: Rate/Rhythm: regular rate and regular rhythm Heart Sounds: normal S1 and normal S2; no gallop, no murmur and no cardiac rub Gastrointestinal (Abdomen): normal bowel sounds, soft, nontender, no hepatosplenomegaly Musculoskeletal: no cyanosis or clubbing, extremities motor strength 5/5 No spinal tenderness, no joint swelling or erythema Skin: no rashes, warm and dry no lesions Neurologic: moves all extremities and awake; no focal motor deficits Motor/Sensory: no sensory deficit Psychiatric: A+Ox3, euthymic affect Lymphatic: + cervical lymphadenopathy; no axillary lymphadenopathy and no inguinal lymphadenopathy Results & Data Vital Signs (Past 12 Hours) Vital Signs Temp Pulse Pulse Resp BP Pulse Ox 08/27/18 20:59 37.4 C 08/27/18 19:55 91 H 22 106/60 97 08/27/18 19:23 39.2 C H 08/27/18 15:43 99 H 08/27/18 14:59 38.1 C H 93 H 18 112/68 98 08/27/18 11:53 36.8 C 77 16 97/64 L 100 Laboratory Results Laboratory Results - last 48 hr 08/23/18 08/23/18 08/25/18 19:40 21:18 11:20 Sodium Potassium Chloride Carbon Dioxide Anion Gap BUN Creatinine Est Cr Clr Drug Dosing Est GFR ( Amer) Est GFR (Non-Af Amer) BUN/Creatinine Ratio Glucose Calcium Magnesium U Amphetamines Confirm 1140 A U Methamphetamin Confrm 2480 A A. phagocytophilum IgG <1:64 A. phagocytophilum IgM <1:20 A. phagocytophilum DNA Not Detected A.phagocytophilum Intrp see note A. phagocytophilum Cmmt see note E. chaffeensis IgG Ab <1:64 E. chaffeensis IgM Ab <1:20 E. chaffeensis Interp see note E. chaffeensis Comment see note 08/26/18 08:38 Sodium 140 Potassium 4.0 D Chloride 109 H Carbon Dioxide 25 Anion Gap 5.0 BUN 10 Creatinine 0.64 Est Cr Clr Drug Dosing 130.5 Est GFR ( Amer) 133.3 Est GFR (Non-Af Amer) 115.0 BUN/Creatinine Ratio 14.8 Glucose 105 H Calcium 8.6 Magnesium 2.1 U Amphetamines Confirm U Methamphetamin Confrm A. phagocytophilum IgG A. phagocytophilum IgM A. phagocytophilum DNA A.phagocytophilum Intrp A. phagocytophilum Cmmt E. chaffeensis IgG Ab E. chaffeensis IgM Ab E. chaffeensis Interp E. chaffeensis Comment Diagnostic Findings Microbiology 08/23/18 20:51 Blood Blood Culture - Final Streptococcus intermedius 08/23/18 21:18 Urine,Clean Catch Urine Culture - Final No growth - less than 1,000 colonies/mL. 08/24/18 17:34 Blood Blood Culture - Preliminary No growth to date. 08/24/18 17:27 Blood Blood Culture - Preliminary No growth to date. 08/23/18 20:51 Blood Blood Culture - Preliminary No growth to date. CT facial bones w con CT DOSE: 626.97 mGycm CLINICAL HISTORY: facial abscess TECHNIQUE: Helical images were acquired in the transverse plane during intravenous administration of 94 cc of Optiray 320. A dose lowering technique was utilized adhering to the principles of ALARA. COMPARISON STUDY: None. FINDINGS: No fractures are visualized. There is extensive left-sided facial swelling. This appears centered on the left mandible. There are no fluid collections to indicate a discrete abscess. There is edema within the left masseter muscle. There is mild secondary edema within the left parotid and submandibular glands. There is left-sided cervical lymphadenopathy, likely reactive. There is no evidence of acute sinusitis. No destructive mandibular lesions are visualized. There is no evidence for airway compromise. IMPRESSION: 1. Extensive superficial left-sided facial edema. 2. Left-sided cervical lymphadenopathy likely reactive. 3. There are no defined fluid collections to indicate a focal abscess. Electronically signed by: Shaquille Madrigal M.D. 08/26/2018 3:49 PM Dictated: 08/26/18 1543 Transcribed: 08/26/18 1543
[2018-08-28] MEDS: AMPICILLIN/SULBACTAM SOD 3,000 MG in 0.9 % SODIUM CHLORIDE 100 ML IV SCH ×4 (03:00→20:33)
[2018-08-28] MEDS: KETOROLAC TROMETHAMINE 15 MG/ML VIAL IV PRN ×3 (04:24→20:32)
[2018-08-28 07:00] LABS: Basophils # (auto) 0.02 K/uL (0-0.2); Basophils % (auto) 0.4 %; Eosinophils # (auto) 0.04 K/uL (0-0.5); Eosinophils % (auto) 0.7 %; Hematocrit (blood only) 32.4 % (42-52); Hemoglobin 11.5 g/dL (14.0-18.0); Immature Granulocytes # (auto) 0.03 K/uL (0.00-0.02); Immature Granulocytes % (auto) 0.5 %; Lymphocytes # (auto) 1.37 K/uL (1.2-3.4); Lymphocytes % (auto) 24.1 %; Mean Corpuscular Hgb Conc 35.5 g/dL (32-36); Mean Corpuscular Volume 86.9 fL (80-100); Mean Platelet Volume 9.6 fL (7.4-10.4); Monocytes # (auto) 0.53 K/uL (0.11-0.59); Monocytes % (auto) 9.3 %; Platelet Count 174 K/uL (130-400); RDW Coefficient of Variation 13.6 % (11.5-14.5); RDW Standard Deviation 43.6 fL (36.4-46.3); Red Blood Count 3.73 M/uL (4.7-6.1); White Blood Count 5.69 K/uL (4.8-10.8)
[2018-08-28 07:35] LABS: BUN Creatinine Ratio 17.5 (10-20); Calcium 8.9 mg/dl (8.5-10.1); Creatinine Clr Calc Pharmacy 99.5 ml/min; Est GFR (African American) 119.2; Est GFR (Non-African American) 102.8; Magnesium 2.4 mg/dl (1.8-2.4); Phosphorus 2.8 mg/dl (2.5-4.9); Potassium 3.5 mmol/L (3.5-5.1)
[2018-08-28] MEDS: ACETAMINOPHEN 325 MG TAB PO PRN (12:08)
--- NOTE | 2018-08-28 18:43 | Hospitalist Progress Note ---
Date of Service August 28, 2018 Assessment & Plan (1) Sepsis: Please note this is my first day of assuming care for this patient. Review of the chart suggests that the patient presented with SIRS rather than sepsis. This has subsequently resolved. Mild hypotension and tachycardia on admission resolved with intravenous fluids. No lactic acid level was drawn. Procalcitonin level is normal. (2) Hypokalemia: replaced and follow-up, (3) Hypotensive episode: Mild on admission. Resolved with IV fluids. (4) Bacteremia: 1 out of 2 cultures positive for Streptococcus intermediates. Follow-up blood cultures negative. Currently on Unasyn day 3. Appreciate infectious disease consultation and recommendations regarding duration of intravenous therapy before switching to oral antibiotic therapy and subsequent discharge. (5) Left facial pain: Due to left mandibular cellulitis from dental infection. No evidence of abscess on CT scan (6) Hypophosphatemia: Corrected with intravenous replacement. Subjective The patient believes the left mandibular swelling is decreasing. He showed me some pictures taken from a day or 2 ago and it does appear that the swelling is diminishing. Currently day 3 of intravenous Unasyn. Blood cultures drawn on August 23 are positive for strep intermedius. Blood cultures August 24 are negative. Appreciate infectious disease input. Review of Systems Review of Systems: All systems reviewed & are unremarkable except as noted in HPI & below Ear, Nose, Mouth, Throat: Left lower mandibular swelling and tenderness has improved since admission Physical Exam Constitutional: WD/WN, vitals as above Eyes: PERRL, conjunctivae normal, anicteric sclerae ENMT: Left mandibular swelling and tenderness as noted above Respiratory: normal respiratory effort, lungs clear to auscultation Cardiovascular: RRR, no murmur, no edema Gastrointestinal (Abdomen): normal bowel sounds, soft, nontender, no hepatosplenomegaly Musculoskeletal: no cyanosis or clubbing, extremities motor strength 5/5 Skin: no rashes, warm and dry Neurologic: CN's II-XI intact bilaterally; no focal motor deficits Results & Data Vital Signs (Past 12 Hours) Vital Signs Temp Pulse Resp BP BP Pulse Ox 08/28/18 15:02 37 C 77 22 101/58 L 98 08/28/18 12:01 38.2 C H 101 H 20 97/61 L 97 08/28/18 07:18 36.8 C 80 18 91/55 L 94 Laboratory Results 08/28/18 06:33 08/28/18 06:33
[2018-08-29] MEDS: AMPICILLIN/SULBACTAM SOD 3,000 MG in 0.9 % SODIUM CHLORIDE 100 ML IV SCH ×2 (03:24→09:04)
[2018-08-29] MEDS: KETOROLAC TROMETHAMINE 15 MG/ML VIAL IV PRN (09:39)
--- NOTE | 2018-08-29 11:06 | Discharge Summary ---
Date of Service August 29, 2018 Admission HPI Per Admitting Provider 48yo previously healthy male presents with fever, chills, fatigue and urinary hesitancy x 2 days. Describes difficulty starting and maintaining urinary stream with mild discomfort "feels like a pinch" but no burning sensation x 2 days. A/w fever, chills and headache. Had 2 episodes of headache 2 days ago and yesterday, frontal 7-8/10, sharp in nature, not associated with photophobia/phonophobia, or nausea. Denies dizziness, cp, sob, abdominal pain, n/v, d/c, hematochezia, dark stools, hematuria. No falls or LOC. Surgical hx: appendectomy in 1988 and tonsillectomy in 1976 Social hx: smokes 6 cig/day now, smoking for >25 yrs >1 pack/day, alcohol use decreased in recent years only had 4 beers in 2018, reports smoking marijuana last used 3 weeks ago, denied any other recreational drug use Admission Exam Per Admitting Provider Physical Exam: General: In NAD HEENT: PERRL, nares clear, moist mucous membranes CV: RRR, no m/r/g PULM: Bibasilar mild crackles appreciated, equal breath sounds bilaterally ABDOMEN: +BS, non-distended, non-tender to palpation in all quadrants LE: no calf TTP, no LE edema Rectal exam: moderately boggy and tender prostate Principal Diagnosis Left mandibular cellulitis secondary to dental caries, streptococcal bacteremia, hypokalemia, hypophosphatemia Discharge Exam Constitutional WD/WN, vitals as above Eyes PERRL, conjunctivae normal, anicteric sclerae Respiratory normal respiratory effort, lungs clear to auscultation Cardiovascular RRR, no murmur, no edema Gastrointestinal (Abdomen) normal bowel sounds, soft, nontender, no hepatosplenomegaly Musculoskeletal no cyanosis or clubbing, extremities motor strength 5/5 Skin no rashes, warm and dry Neurologic CN's II-XI intact bilaterally; no focal motor deficits Discharge Data Allergies Allergy/AdvReac Type Severity Reaction Status Date / Time No Known Allergies Allergy Unverified 08/23/18 21:02 Consultations 08/23/18 21:45 ED Decision to Admit Stat 08/25/18 08:20 Consult Infectious Diseases Routine Ordered Studies 08/23/18 20:13 CT head/brain wo con Stat 08/26/18 15:00 CT facial bones w con Stat Hospital Course (1) Sepsis: Please note this is my first day of assuming care for this patient. Review of the chart suggests that the patient presented with SIRS rather than sepsis. This has subsequently resolved. Mild hypotension and tachycardia on admission resolved with intravenous fluids. No lactic acid level was drawn. Procalcitonin level is normal. (2) Hypokalemia: replaced and follow-up, (3) Hypotensive episode: Mild on admission. Resolved with IV fluids. (4) Bacteremia: 1 out of 2 cultures positive for Streptococcus intermediates. Follow-up blood cultures negative. Currently on Unasyn day 3. Appreciate infectious disease consultation and recommendations regarding duration of intravenous therapy before switching to oral antibiotic therapy and subsequent discharge. (5) Left facial pain: Due to left mandibular cellulitis from dental infection. No evidence of abscess on CT scan (6) Hypophosphatemia: Corrected with intravenous replacement. Total Time Total Time Spent Total Time Spent (In Minutes): 40 minutes Total Time Includes: Examination of the Patient, Discharge Planning, Medication Reconciliation and Communication With Other Providers Discharge Plan Discharge Items Patient Disposition: Home - Self-Care Reason For Visit: UNRESPONSIVENESS Discharge Diagnosis: Left facial cellulitis secondary to dental caries, streptococcal bacteremia, hypokalemia, hypophosphatemia Discharge Goals: Decrease discomfort and Therapeutic intervention Activity: Resume your previous activity Lifting: Gradually increase as tolerated Bathing: No limitations Driving/Machine Use: No limitations Non-emergency contact: Primary Care Provider Call non-emergency contact if: your pain is not controlled, your pain is worsening and you have a fever Follow-up/Referrals: [facility] [Primary Care Provider] - Diet: Regular Addtl Provider Instructions: Follow-up with primary care provider and dentist as soon as possible. Take Augmentin for 10 more days. Prescriptions: New amoxicillin-pot clavulanate [Augmentin] 875-125 mg tablet 1 tab PO BID Qty: 20 RF: 0 No Action No Known Home Medications RF: 0 Stand-Alone Forms: My [facility] Discharge Orders: Discharge Order (Routine); Ordered 08/29/18 Ordered By: Mamadou Rojas Admission Data Admit Date/Time: 08/26/18 08:13 Attending Provider: Mamadou Rojas Admit Provider: Sanket Mckay Primary Care Provider: PCP,NO Other Providers: Sanket Mckay ; Sammy lLoyd Service: Telemetry Medical
== END 2018-08-29 15:11 | disposition home or self-care (01) | DRG 872 ==
LOC: ED 20:10 → 2W 20:10 → SUATTDRO 22:58 → 2W 23:35 → SUATTDRO 08-26 08:13

== ENCOUNTER 2020-01-15 18:43 | Inpatient (IN) ==
[2020-01-15] MEDS ORDERED: SODIUM CHLORIDE 0.9% 1000ML 1,000 ML IV SCH (19:15)
--- NOTE | 2020-01-15 19:16 | Emergency Department Note ---
History of Present Illness General Chief complaint: Dehydration Stated complaint: DEHYDRATED - FEVER - DECREASE IN URINATE/PAINFUL Time Seen by Provider: 01/15/20 18:54 Source: patient Mode of arrival: ambulatory Limitations: no limitations and patient cooperation History of Present Illness Provider complaint: flu like symptoms Onset (ago): week(s) 1 Maximum Pain Intensity: 6 Quality: + constant Relieved By: + none Associated symptoms: + cough, + fever/chills, + loss of appetite, + malaise, + nausea/vomiting and + weakness Treatments prior to arrival: none Is a 49-year-old male who presents from home complaining of multiple symptoms and concern for coronavirus. Patient states last week he began noticing nasal congestion, rhinorrhea, sore throat, myalgias, subjective fevers and chills. Patient states he had a decrease in his appetite was intermittently nauseated although did not vomit. Patient states his roommate was ill with similar symptoms several weeks prior but seem to get better. Patient states his roommate was not tested so he is uncertain if he was potentially exposed to coronavirus. Patient states this week the fevers became more persistent and he felt worse, decreased oral intake, patient did notice some nonbloody diarrhea over the last several days with intermittent abdominal cramping, denies chest pain. Patient denies shortness of breath although admits to ongoing URI symptoms. Patient states he became much more weak. Patient denies any rash or sores. Patient states he also noticed it was difficult to urinate. Pt seen during a time of high acuity and national emergency pandemic while wearing PPE. Home Medications Home Medications Medication Instructions Recorded Confirmed Type ibuprofen [Advil Liqui-Gel] 400 mg PO Q6H PRN 01/15/20 01/15/20 History Allergies Allergy/AdvReac Type Severity Reaction Status Date / Time amoxicillin [From Augmentin] Allergy Severe rash, Verified 10/07/18 13:13 swelling in hands and legs clavulanic acid Allergy Severe rash, Verified 10/07/18 13:13 [From Augmentin] swelling in hands and legs clindamycin Allergy Intermediate Rash and Verified 10/07/18 13:13 extremity swelling Past Med/Surg History Medical History Hypophosphatemia Surgical History No significant past surgical history Family History Other No pertinent family history Social History Smoking Status: Current every day smoker Tobacco Type: Cigarettes Cigarettes Per Day: 3-4; Second Hand Exposure: Yes; Do You Dip or Chew Tobacco: No; Tobacco Cessation Education Requested by Patient: Yes Hx Alcohol Use: No Hx Substance Use: Yes Last Used Substance: Days (ago) Last Used Substance Other:: last week Preferred Language: Scottish Communication Ability: Effective [employer] Required: No Beliefs That Will Affect Care: None marital status: Single Current Living Situation: Other Current Living Situation Comment: staying with friend Feels Safe at Home: Yes Safety Concerns: Feels Safe At This Time Review of Systems See HPI for pertinent positives & negatives. and A total of 10 systems reviewed and were otherwise negative Physical Exam Vital Signs Vital Signs - 24 hr 01/15/20 18:45 01/15/20 19:43 01/15/20 19:49 Temperature 39.9 C H Temperature Source Oral Pulse Rate 129 H 162 H Pulse Rate [Right Finger] 168 H 157 H Pulse Rhythm [Right Finger] Regular Pulse Strength [Right Finger] Normal Respiratory Rate 16 22 24 Respiratory Effort / Characteristics Non-Labored Respiratory Depth Normal Respiratory Pattern Regular Blood Pressure 85/54 L Blood Pressure [Right Arm] 97/57 L 97/57 L Blood Pressure Mean 64 Blood Pressure Mean [Right Arm] 70 70 Blood Pressure Position Sitting Pulse Oximetry 96 97 97 Oxygen Delivery Method Room Air Room Air Room Air Sepsis New/Unexplained Change in Mental Status No Sepsis Action Taken by Nursing No Action Required 01/15/20 20:24 01/15/20 21:30 01/15/20 21:42 Temperature 39 C H 37.1 C Temperature Source Oral Oral Pulse Rate Pulse Rate [Right Finger] 110 H 94 H 96 H Pulse Rhythm [Right Finger] Regular Regular Regular Pulse Strength [Right Finger] Respiratory Rate 24 22 24 Respiratory Effort / Characteristics Spontaneous Respiratory Depth Respiratory Pattern Blood Pressure Blood Pressure [Right Arm] 88/52 L 79/49 L 80/51 L Blood Pressure Mean Blood Pressure Mean [Right Arm] 64 59 60 Blood Pressure Position Pulse Oximetry 94 96 96 Oxygen Delivery Method Room Air Room Air Room Air Sepsis New/Unexplained Change in Mental Status Sepsis Action Taken by Nursing GENERAL: alert, ill appearing, thin body habitus, mild distress, disheveled EYE EXAM: normal conjunctiva, PERRL and EOM's grossly intact OROPHARYNX: no exudate, no erythema, lips, buccal mucosa, and tongue normal and mucous membranes are dry NECK: supple, no nuchal rigidity, no adenopathy, non-tender LUNGS: Clear but decreased to auscultation. Normal chest wall mechanics, no w/ r/r HEART: no murmurs, S1 normal and S2 normal ABDOMEN: abdomen soft, non-tender, normo-active bowel sounds, no masses, no rebound or guarding. BACK: Back is symmetrical on inspection and there is no deformity, no midline tenderness, no CVA tenderness. SKIN: no rashes and no bruising UPPER EXTREMITIES: upper extremities are grossly normal. FROM, nml pulses b/l. LOWER EXTREMITIES: No pitting edema. FROM, nml pulses b/l. Chronic appearing skin changes to the distal bilateral lower extremities. Thickened and fungated appearing toenails. NEURO EXAM: Normal sensorium, cranial nerves II-XII grossly intact, normal speech, no gross weakness of arms, no gross weakness of legs. Gross sensation intact. Procedures Central Line Placement Right IJ: Time Out Performed: Yes Patient Placed on Monitor/Pulse Ox: Yes MD Prep: mask, gown and gloves Central Line Prep: Chlorhexidine scrub and sterile drapes applied Local Anesthetic: lidocaine 1% Amount of anesthesia used (mL): 4 Ultrasound Used for Placement: Yes Central Line Lumen Inserted: triple Post Procedure: sutured in place, good blood return, all ports aspirated, flushed, capped and sterile dressing applied Post Procedure X-Ray: tip of catheter in good position and no pneumothorax seen Patient Tolerated Procedure: well Complications: none Course Course 1925: Pt still tachcardic, BP slightly improved. 2014: HR now low 100's, still borderline hypotensive. 2044: Pt still hypotensive although reports feeling improved. Discussed labs and need for admission. Pt has had 3 L NSS, given hypotension, discussed with him central line placement. Patient verbalized understanding of risks versus benefits. 2128: Pt able to sign consent for TLC placement. Case discussed with hospitalist, they are aware of his condition in agreement with plan. They will contact the ICU. 2011: Right ultrasound-guided IJ central line placed. Please see procedure note. 2255: Repeat chest x-ray without pneumothorax, catheter in good position. We will switch peripheral norepinephrine to central line. Administered Medications Fludrocortisone Acetate (Fludrocortisone Acetate 0.1 Mg Tab) 0.1 mg PO QAM [facility] Stop: 02/18/20 11:29 Last Admin: 01/19/20 11:48 Dose: 0.1 mg Documented by: [id number] Folic Acid (Folic Acid 1 Mg Tab) 1 mg PO QAM [facility] Stop: 02/18/20 08:59 Last Admin: 01/19/20 08:04 Dose: 1 mg Documented by: [id number] Imipenem/Cilastatin Sodium 500 (mg/ Dextrose) 110 mls @ 110 mls/hr IV Q6H [facility] Stop: 01/24/20 11:59 Last Infusion: 01/19/20 13:36 Dose: 0 mls/hr Documented by: [id number] Admin: 01/19/20 11:49 Dose: 110 mls/hr Documented by: [id number] Infusion: 01/19/20 07:28 Dose: 0 mls/hr Documented by: [id number] Admin: 01/19/20 06:16 Dose: 110 mls/hr Documented by: [id number] Infusion: 01/19/20 01:10 Dose: 0 mls/hr Documented by: [id number] Admin: 01/19/20 00:00 Dose: 110 mls/hr Documented by: [id number] Infusion: 01/18/20 18:06 Dose: 0 mls/hr Documented by: [id number] Admin: 01/18/20 16:57 Dose: 110 mls/hr Documented by: [id number] Infusion: 01/18/20 14:20 Dose: 0 mls/hr Documented by: [id number] Admin: 01/18/20 13:16 Dose: 110 mls/hr Documented by: [id number] Infusion: 01/18/20 05:46 Dose: 0 mls/hr Documented by: [id number] Admin: 01/18/20 04:56 Dose: 110 mls/hr Documented by: [id number] Infusion: 01/18/20 00:46 Dose: 0 mls/hr Documented by: [id number] Admin: 01/17/20 23:30 Dose: 110 mls/hr Documented by: [id number] Infusion: 01/17/20 19:17 Dose: 110 mls/hr Documented by: [id number] Admin: 01/17/20 18:17 Dose: 110 mls/hr Documented by: [id number] Infusion: 01/17/20 14:56 Dose: 0 mls/hr Documented by: [id number] Admin: 01/17/20 13:53 Dose: 110 mls/hr Documented by: [id number] Hydrocortisone Sodium (Succinate 50 mg/ Syringe) 1 mls @ 4 mls/min IV Q6H DIMA Stop: 02/17/20 07:59 Last Admin: 01/19/20 08:03 Dose: 4 mls/min Documented by: [id number] Admin: 01/19/20 01:12 Dose: 4 mls/min Documented by: [id number] Admin: 01/18/20 20:10 Dose: 4 mls/min Documented by: [id number] Admin: 01/18/20 13:16 Dose: 4 mls/min Documented by: [id number] Admin: 01/18/20 08:34 Dose: 4 mls/min Documented by: [id number] Insulin Aspart (Insulin Aspart 100 Units/Ml 3 Ml Pen) 0 units SC ACHS DIMA Stop: 02/17/20 11:29 Last Admin: 01/19/20 11:59 Dose: Not Given Documented by: [id number] Cosigned by: [id number] Admin: 01/19/20 08:14 Dose: Not Given Documented by: [id number] Cosigned by: [id number] Admin: 01/18/20 20:28 Dose: Not Given Documented by: [id number] Cosigned by: [id number] Admin: 01/18/20 15:35 Dose: Not Given Documented by: [id number] Cosigned by: [id number] Admin: 01/18/20 12:06 Dose: Not Given Documented by: [id number] Cosigned by: [id number] Thiamine HCl (Thiamine Hcl 100 Mg Tab) 100 mg PO QAM DIMA Stop: 02/18/20 08:59 Last Admin: 01/19/20 08:04 Dose: 100 mg Documented by: [id number] Discontinued Medications Amiodarone HCl (Amiodarone 200 Mg Tab) 200 mg PO TID DIMA Stop: 02/17/20 13:59 Last Admin: 01/19/20 08:04 Dose: 200 mg Documented by: [id number] Admin: 01/18/20 20:11 Dose: 200 mg Documented by: [id number] Admin: 01/18/20 13:16 Dose: 200 mg Documented by: [id number] Dexamethasone (Dexamethasone Sod Inj 10 Mg/Ml Vial) 10 mg IV NOW ONE Stop: 01/15/20 20:26 Last Admin: 01/15/20 20:44 Dose: 10 mg Documented by: [id number] Famotidine (Famotidine 20mg/5ml Iv Push) 20 mg IV ONE STA Stop: 01/15/20 21:05 Last Admin: 01/15/20 21:12 Dose: 20 mg Documented by: [id number] Fentanyl Citrate (Fentanyl Citrate 100 Mcg/2 Ml Vial) Confirm Administered Dose 100 mcg .ROUTE .STK-MED ONE Stop: 01/19/20 09:49 Last Increment: 01/19/20 10:31 Dose: 75 mcg Documented by: [id number] Heparin Sodium (Porcine) (Heparin Sod 5,000 Unit/0.5 Ml Vial) 5,000 units SQ Q 12 DIMA Stop: 02/15/20 08:59 Last Admin: 01/17/20 08:27 Dose: 5,000 units Documented by: [id number] Cosigned by: [id number] Admin: 01/16/20 20:00 Dose: 5,000 units Documented by: [id number] Cosigned by: [id number] Admin: 01/16/20 09:03 Dose: 5,000 units Documented by: [id number] Cosigned by: [id number] Heparin Sodium/Dextrose (Heparin Iv Low Dose With Bolus) 1 ea IV Q15M DIMA; Protocol Stop: 01/17/20 10:04 Last Admin: 01/17/20 12:27 Dose: 1 ea Documented by: [id number] Sodium Chloride (Nss 1000ml) 1,000 mls @ 999 mls/hr IV .Q1H1M DIMA Stop: 01/15/20 20:15 Last Infusion: 01/15/20 20:48 Dose: 0 mls/hr Documented by: [id number] Admin: 01/15/20 19:42 Dose: 999 mls/hr Documented by: [id number] Cefepime HCl (Maxipime) 2,000 mg in 20 mls @ 5 mls/min IV NOW STA Stop: 01/15/20 19:35 Last Admin: 01/15/20 19:42 Dose: 5 mls/min Documented by: [id number] Sodium Chloride (Nss 1000ml) 1,000 mls @ 999 mls/hr IV .Q1H1M ONE Stop: 01/15/20 20:32 Last Infusion: 01/15/20 20:47 Dose: 0 mls/hr Documented by: [id number] Admin: 01/15/20 19:42 Dose: 999 mls/hr Documented by: [id number] Acetaminophen (Ofirmev) 1,000 mg in 100 mls @ 400 mls/hr IV NOW STA Stop: 01/15/20 19:46 Last Infusion: 01/15/20 20:24 Dose: 0 mls/hr Documented by: [id number] Admin: 01/15/20 19:42 Dose: 400 mls/hr Documented by: [id number] Sodium Chloride (Nss 1000ml) 1,000 mls @ 999 mls/hr IV .Q1H1M ONE Stop: 01/15/20 21:04 Last Infusion: 01/15/20 21:26 Dose: 0 mls/hr Documented by: [id number] Admin: 01/15/20 20:23 Dose: 999 mls/hr Documented by: [id number] Vancomycin HCl 1,250 mg/ (Sodium Chloride) 525 mls @ 200 mls/hr IV NOW ONE Stop: 01/15/20 23:07 Last Infusion: 01/16/20 01:17 Dose: 0 mls/hr Documented by: [id number] Admin: 01/15/20 20:44 Dose: 200 mls/hr Documented by: [id number] Sodium Chloride (Nss 1000ml) 1,000 mls @ 200 mls/hr IV .Q5H DIMA Stop: 02/14/20 21:14 Last Infusion: 01/16/20 19:01 Dose: 0 mls/hr Documented by: [id number] Admin: 01/16/20 10:19 Dose: 200 mls/hr Documented by: [id number] Infusion: 01/16/20 10:19 Dose: 200 mls/hr Documented by: [id number] Admin: 01/16/20 06:02 Dose: 200 mls/hr Documented by: [id number] Infusion: 01/16/20 06:02 Dose: 200 mls/hr Documented by: [id number] Admin: 01/16/20 01:13 Dose: 200 mls/hr Documented by: [id number] Infusion: 01/16/20 01:13 Dose: 200 mls/hr Documented by: [id number] Admin: 01/15/20 21:12 Dose: 200 mls/hr Documented by: [id number] Azithromycin 500 mg/ Dextrose 255 mls @ 127.5 mls/hr IV NOW STA Stop: 01/15/20 23:13 Last Infusion: 01/16/20 01:17 Dose: 0 mls/hr Documented by: [id number] Admin: 01/15/20 21:42 Dose: 127.5 mls/hr Documented by: [id number] Norepinephrine Bitartrate 8 mg (/ Dextrose) 508 mls @ 4.458 mls/hr IV .Q24H DIMA; Protocol Stop: 02/14/20 21:59 Last Admin: 01/18/20 08:34 Dose: Not Given Documented by: [id number] Titration: 01/17/20 21:27 Dose: 0 mcg/kg/min, 0 mls/hr Documented by: [id number] Admin: 01/16/20 22:08 Dose: Not Given Documented by: [id number] Titration: 01/16/20 18:20 Dose: 0 mcg/kg/min, 0 mls/hr Documented by: [id number] Titration: 01/16/20 17:03 Dose: 0.02 mcg/kg/min, 4.5 mls/hr Documented by: [id number] Titration: 01/16/20 14:01 Dose: 0.03 mcg/kg/min, 6.7 mls/hr Documented by: [id number] Titration: 01/16/20 07:02 Dose: 0.1 mcg/kg/min, 22.3 mls/hr Documented by: [id number] Cosigned by: [id number] Admin: 01/15/20 22:26 Dose: 0.1 mcg/kg/min, 22.3 mls/hr Documented by: [id number] Cosigned by: [id number] Norepinephrine Bitartrate 4 mg (/ Dextrose) 254 mls @ 11.144 mls/hr IV .[id number] STA; Protocol Stop: 01/16/20 20:40 Last Titration: 01/16/20 01:16 Dose: 0 mcg/kg/min, 0 mls/hr Documented by: [id number] Admin: 01/15/20 22:25 Dose: 0.1 mcg/kg/min, 22.3 mls/hr Documented by: [id number] Cosigned by: [id number] Albumin Human (Albumin 5%) 250 mls @ 500 mls/hr IV ONE ONE Stop: 01/15/20 22:29 Last Infusion: 01/15/20 23:23 Dose: 0 mls/hr Documented by: [id number] Admin: 01/15/20 22:07 Dose: 500 mls/hr Documented by: [id number] Parenteral Electrolytes (Normosol-R) 1,000 mls @ 200 mls/hr IV .Q5H DIMA Stop: 02/14/20 23:06 Last Admin: 01/16/20 01:14 Dose: Not Given Documented by: [id number] Cefepime HCl 2,000 mg/ Syringe 20 mls @ 5.5 mls/min IV Q8H DIMA; Protocol Stop: 01/23/20 03:59 Last Admin: 01/16/20 04:48 Dose: 5.5 mls/min Documented by: [id number] Azithromycin 500 mg/ Dextrose 255 mls @ 125 mls/hr IV Q24H DIMA; Protocol Stop: 01/23/20 19:59 Last Infusion: 01/18/20 22:15 Dose: 0 mls/hr Documented by: [id number] Admin: 01/18/20 20:10 Dose: 125 mls/hr Documented by: [id number] Infusion: 01/17/20 21:42 Dose: 125 mls/hr Documented by: [id number] Admin: 01/17/20 19:39 Dose: 125 mls/hr Documented by: [id number] Infusion: 01/16/20 22:08 Dose: 0 mls/hr Documented by: [id number] Admin: 01/16/20 19:59 Dose: 125 mls/hr Documented by: [id number] Vancomycin HCl 1,250 mg/ (Sodium Chloride) 275 mls @ 125 mls/hr IV Q12H DIMA Stop: 01/30/20 05:59 Last Infusion: 01/16/20 08:20 Dose: 0 mls/hr Documented by: [id number] Admin: 01/16/20 06:02 Dose: 125 mls/hr Documented by: [id number] Potassium Chloride (K Karel / Wtr) 20 meq in 100 mls @ 50 mls/hr IV Q2H DIMA Stop: 01/16/20 12:12 Last Infusion: 01/16/20 19:01 Dose: 0 mls/hr Documented by: [id number] Admin: 01/16/20 11:21 Dose: 50 mls/hr Documented by: [id number] Infusion: 01/16/20 11:04 Dose: 50 mls/hr Documented by: [id number] Admin: 01/16/20 09:04 Dose: 50 mls/hr Documented by: [id number] Infusion: 01/16/20 08:45 Dose: 50 mls/hr Documented by: [id number] Admin: 01/16/20 06:45 Dose: 50 mls/hr Documented by: [id number] Ertapenem 1,000 mg/ Sodium (Chloride) 60 mls @ 100 mls/hr IV Q24H DIMA Stop: 01/23/20 07:59 Last Infusion: 01/17/20 09:13 Dose: 0 mls/hr Documented by: [id number] Admin: 01/17/20 08:26 Dose: 100 mls/hr Documented by: [id number] Infusion: 01/16/20 09:50 Dose: 0 mls/hr Documented by: [id number] Admin: 01/16/20 09:04 Dose: 100 mls/hr Documented by: [id number] Thiamine HCl 100 mg/ Syringe 10 mls @ 2 mls/min IV QAM DIMA Stop: 02/15/20 10:59 Last Admin: 01/18/20 08:34 Dose: 2 mls/min Documented by: [id number] Admin: 01/17/20 08:26 Dose: 2 mls/min Documented by: [id number] Admin: 01/16/20 11:21 Dose: 2 mls/min Documented by: [id number] Folic Acid 1 mg/ Syringe 10 mls @ 5 mls/min IV QAM DIMA Stop: 02/15/20 10:59 Last Admin: 01/18/20 08:34 Dose: 5 mls/min Documented by: [id number] Admin: 01/17/20 08:26 Dose: 5 mls/min Documented by: [id number] Admin: 01/16/20 11:21 Dose: 5 mls/min Documented by: [id number] Dextrose/Sodium Chloride (D5w And 1/2nss) 1,000 mls @ 80 mls/hr IV .[id number] DIMA Stop: 02/15/20 10:29 Last Infusion: 01/17/20 13:05 Dose: 0 mls/hr Documented by: [id number] Infusion: 01/17/20 09:13 Dose: 80 mls/hr Documented by: [id number] Admin: 01/17/20 00:15 Dose: 80 mls/hr Documented by: [id number] Infusion: 01/16/20 23:54 Dose: 80 mls/hr Documented by: [id number] Admin: 01/16/20 11:24 Dose: 80 mls/hr Documented by: [id number] Vancomycin HCl 1,000 mg/ (Sodium Chloride) 270 mls @ 125 mls/hr IV Q8H DIMA; Protocol Stop: 01/23/20 13:59 Last Infusion: 01/18/20 09:02 Dose: 0 mls/hr Documented by: [id number] Admin: 01/18/20 06:47 Dose: 125 mls/hr Documented by: [id number] Infusion: 01/17/20 23:33 Dose: 0 mls/hr Documented by: [id number] Admin: 01/17/20 21:27 Dose: 125 mls/hr Documented by: [id number] Infusion: 01/17/20 17:17 Dose: 0 mls/hr Documented by: [id number] Admin: 01/17/20 14:55 Dose: 125 mls/hr Documented by: [id number] Infusion: 01/17/20 09:15 Dose: 0 mls/hr Documented by: [id number] Admin: 01/17/20 06:33 Dose: 125 mls/hr Documented by: [id number] Infusion: 01/17/20 01:00 Dose: 0 mls/hr Documented by: [id number] Admin: 01/16/20 22:20 Dose: 125 mls/hr Documented by: [id number] Infusion: 01/16/20 19:00 Dose: 0 mls/hr Documented by: [id number] Admin: 01/16/20 14:01 Dose: 125 mls/hr Documented by: [id number] Potassium Phosphate 30 mmol/ (Sodium Chloride) 510 mls @ 102 mls/hr IV ONE ONE Stop: 01/16/20 20:29 Last Infusion: 01/16/20 22:09 Dose: 0 mls/hr Documented by: [id number] Admin: 01/16/20 16:28 Dose: 102 mls/hr Documented by: [id number] Potassium Phosphate 21 mmol/ (Sodium Chloride) 507 mls @ 88 mls/hr IV NOW STA Stop: 01/17/20 12:18 Last Infusion: 01/17/20 14:28 Dose: 0 mls/hr Documented by: [id number] Infusion: 01/17/20 13:05 Dose: 88 mls/hr Documented by: [id number] Infusion: 01/17/20 09:13 Dose: 88 mls/hr Documented by: [id number] Admin: 01/17/20 08:26 Dose: 88 mls/hr Documented by: [id number] Heparin Sodium/Dextrose (Heparin Sodium/Dextrose) 25,000 units in 500 mls @ 17 mls/hr IV .Q24H DIMA; Protocol Stop: 02/16/20 11:29 Last Titration: 01/18/20 07:43 Dose: 0 units/hr, 0 mls/hr Documented by: [id number] Cosigned by: [id number] Titration: 01/18/20 03:13 Dose: 850 units/hr, 17 mls/hr Documented by: [id number] Cosigned by: [id number] Titration: 01/17/20 23:12 Dose: 800 units/hr, 16 mls/hr Documented by: [id number] Cosigned by: [id number] Titration: 01/17/20 21:28 Dose: 800 units/hr, 16 mls/hr Documented by: [id number] Cosigned by: [id number] Titration: 01/17/20 18:43 Dose: 700 units/hr, 14 mls/hr Documented by: [id number] Cosigned by: [id number] Admin: 01/17/20 12:24 Dose: 700 units/hr, 14 mls/hr Documented by: [id number] Cosigned by: [id number] Heparin Sodium (Porcine) 4,000 (units/ Syringe) 4 mls @ 10 mls/min IV NOW ONE Stop: 01/17/20 11:31 Last Admin: 01/17/20 12:26 Dose: 10 mls/min Documented by: [id number] Cosigned by: [id number] Amiodarone HCl/Dextrose (Nexterone / D5w) 150 mg in 100 mls @ 600 mls/hr IV ONE ONE Stop: 01/17/20 11:39 Last Infusion: 01/17/20 13:05 Dose: 0 mls/hr Documented by: [id number] Cosigned by: [id number] Admin: 01/17/20 12:27 Dose: 600 mls/hr Documented by: [id number] Cosigned by: [id number] Amiodarone HCl/Dextrose (Nexterone / D5w) 360 mg in 200 mls @ 33.3 mls/hr IV .Q6H1M DIMA Stop: 01/17/20 17:40 Last Infusion: 01/17/20 18:29 Dose: 0 mls/hr Documented by: [id number] Cosigned by: [id number] Admin: 01/17/20 12:28 Dose: 33.3 mls/hr Documented by: [id number] Cosigned by: [id number] Amiodarone HCl/Dextrose (Nexterone / D5w) 360 mg in 200 mls @ 16.7 mls/hr IV .[id number] DIMA Stop: 01/18/20 11:29 Last Infusion: 01/18/20 15:21 Dose: 0 mls/hr Documented by: [id number] Cosigned by: [id number] Admin: 01/18/20 04:55 Dose: 16.7 mls/hr Documented by: [id number] Cosigned by: [id number] Infusion: 01/18/20 04:55 Dose: 16.7 mls/hr Documented by: [id number] Cosigned by: [id number] Infusion: 01/17/20 18:43 Dose: 16.7 mls/hr Documented by: [id number] Cosigned by: [id number] Admin: 01/17/20 18:17 Dose: 16.7 mls/hr Documented by: [id number] Cosigned by: [id number] Potassium Phosphate 18 mmol/ (Sodium Chloride) 506 mls @ 88 mls/hr IV ONE ONE Stop: 01/17/20 21:44 Last Infusion: 01/17/20 20:41 Dose: 88 mls/hr Documented by: [id number] Admin: 01/17/20 14:56 Dose: 88 mls/hr Documented by: [id number] Trimethoprim/Sulfamethoxazole (304 mg/ Dextrose) 519 mls @ 333 mls/hr IV Q8H DIMA Stop: 01/24/20 13:59 Last Infusion: 01/18/20 06:41 Dose: 0 mls/hr Documented by: [id number] Admin: 01/18/20 05:06 Dose: 333 mls/hr Documented by: [id number] Infusion: 01/17/20 23:00 Dose: 0 mls/hr Documented by: [id number] Admin: 01/17/20 21:26 Dose: 333 mls/hr Documented by: [id number] Infusion: 01/17/20 15:39 Dose: 0 mls/hr Documented by: [id number] Admin: 01/17/20 13:53 Dose: 333 mls/hr Documented by: [id number] Voriconazole 360 mg/ Sodium (Chloride) 250 mls @ 125 mls/hr IV Q12H DIMA Stop: 01/18/20 01:59 Last Infusion: 01/18/20 01:30 Dose: 0 mls/hr Documented by: [id number] Admin: 01/17/20 23:30 Dose: 125 mls/hr Documented by: [id number] Infusion: 01/17/20 14:28 Dose: 0 mls/hr Documented by: [id number] Admin: 01/17/20 12:28 Dose: 125 mls/hr Documented by: [id number] Heparin Sodium (Porcine) 4,000 (units/ Syringe) 4 mls @ 10 mls/min IV ONE ONE Stop: 01/17/20 21:01 Last Admin: 01/17/20 21:26 Dose: 10 mls/min Documented by: [id number] Cosigned by: [id number] Heparin Sodium (Porcine) 2,000 (units/ Syringe) 2 mls @ 10 mls/min IV ONE ONE Stop: 01/18/20 02:30 Last Admin: 01/18/20 03:13 Dose: 10 mls/min Documented by: [id number] Cosigned by: [id number] Albumin Human (Albumin 5%) 250 mls @ 500 mls/hr IV Q1H DIMA Stop: 01/18/20 04:14 Last Infusion: 01/18/20 04:18 Dose: 0 mls/hr Documented by: [id number] Admin: 01/18/20 03:38 Dose: 500 mls/hr Documented by: [id number] Infusion: 01/18/20 03:38 Dose: 0 mls/hr Documented by: [id number] Admin: 01/18/20 03:12 Dose: 500 mls/hr Documented by: [id number] Magnesium Sulfate/Dextrose (Magnesium Sulfate / D5w) 1 gm in 100 mls @ 50 mls/hr IV ONE ONE Stop: 01/18/20 05:04 Last Infusion: 01/18/20 05:00 Dose: 0 mls/hr Documented by: [id number] Admin: 01/18/20 03:15 Dose: 50 mls/hr Documented by: [id number] Potassium Chloride (K Karel / Wtr) 20 meq in 100 mls @ 50 mls/hr IV Q2H DIMA Stop: 01/18/20 07:04 Last Infusion: 01/18/20 06:42 Dose: 0 mls/hr Documented by: [id number] Admin: 01/18/20 04:55 Dose: 50 mls/hr Documented by: [id number] Infusion: 01/18/20 04:55 Dose: 50 mls/hr Documented by: [id number] Admin: 01/18/20 03:15 Dose: 50 mls/hr Documented by: [id number] Hydrocortisone Sodium (Succinate 100 mg/ Syringe) 2 mls @ 4 mls/min IV NOW STA Stop: 01/18/20 04:48 Last Admin: 01/18/20 05:06 Dose: 4 mls/min Documented by: [id number] Potassium Phosphate 30 mmol/ (Sodium Chloride) 510 mls @ 88 mls/hr IV ONE ONE Stop: 01/18/20 16:47 Last Infusion: 01/18/20 17:10 Dose: 0 mls/hr Documented by: [id number] Infusion: 01/18/20 15:21 Dose: 88 mls/hr Documented by: [id number] Admin: 01/18/20 11:14 Dose: 88 mls/hr Documented by: [id number] Midazolam HCl (Midazolam Hcl 5 Mg/Ml 1 Ml Vial) Confirm Administered Dose 5 mg .ROUTE .STK-MED ONE Stop: 01/19/20 09:48 Last Increment: 01/19/20 10:30 Dose: 3 mg Documented by: [id number] Miscellaneous (Stat Iv Infusion Titration Per Protocol) 1 ea N/A NOW STA Stop: 01/15/20 21:47 Last Admin: 01/16/20 01:13 Dose: 1 ea Documented by: [id number] Potassium Chloride (Potassium Chloride 20 Meq/15 Ml Udc) 40 meq PO NOW STA Stop: 01/18/20 03:06 Last Admin: 01/18/20 03:15 Dose: 40 meq Documented by: [id number] Potassium Phosphate (Potassium Phos 3 Mmol/1 Ml Infusion) 21 mmol IV NOW STA Stop: 01/17/20 06:31 Last Admin: 01/17/20 14:30 Dose: Not Given Documented by: [id number] Critical Care Time Critical Care Time: Yes Total Critical Care Time: 56 Critical care of 56 min performed to assess and manage high likelihood of life- threatening septic shock, involving labs and imaging performed with assessment to evaluate septic shock diagnosis with frequent reassessment. This time includes bedside time, treatment discussions with patient/family/consultants, documentation time and excludes procedure time. Medical Decision Making Differential Diagnosis Differential diagnosis: Etiologies such as viral syndrome, otitis, pharyngitis, pneumonia, influenza, meningitis, urinary tract infection, sepsis, bacteremia, as well as others were entertained. Medical Records Attestation: I reviewed the patient's medical records. Home Medications Current Medication List: was personally reviewed by me Laboratory Data Attestation: I reviewed the patient's lab results. Result diagrams: 01/19/20 06:23 01/19/20 06:23 Lab Results 01/15/20 01/15/20 01/15/20 Range/Units 19:20 19:20 19:22 WBC (4.8-10.8) K/uL RBC (4.7-6.1) M/uL Hgb (14.0-18.0) g/dL Hct (42-52) % MCV (80-100) fL MCH (25-34) pg MCHC (32-36) g/dL RDW Std Deviation (36.4-46.3) fL RDW Coeff of Nathen (11.5-14.5) % Plt Count (130-400) K/uL MPV (7.4-10.4) fL Neutrophils % (Manual) % Lymphocytes % (Manual) % Monocytes % (Manual) % Neutrophils # (Manual) (1.4-6.5) K/uL Total Absolute Neuts (1.4-6.5) K/uL Lymphocytes # (Manual) (1.2-3.4) K/uL Total Abs Lymphocytes (1.2-3.4) K/uL Monocytes # (Manual) (0.11-0.59) K/uL Dohle Bodies PT (9.0-12.0) Seconds INR (0.9-1.1) APTT (21.0-31.0) Seconds PTT Ratio Sodium (136-145) mmol/L Potassium (3.5-5.1) mmol/L Chloride (98-107) mmol/L Carbon Dioxide (21-32) mmol/L Anion Gap (3-11) BUN (7-18) mg/dl Creatinine (0.6-1.4) mg/dl Est Cr Clr Drug Dosing ml/min Est GFR ( Amer) Est GFR (Non-Af Amer) BUN/Creatinine Ratio (10-20) Glucose (70-99) mg/dl Lactate 2.2 H* (0.4-2.0) mmol/L Calcium (8.5-10.1) mg/dl Magnesium (1.8-2.4) mg/dl Iron (35-175) mcg/dl TIBC (250-450) mcg/dl Transferrin (200-360) mg/dl Ferritin (8-388) ng/ml Total Bilirubin (0.2-1) mg/dl AST (15-37) U/L ALT (12-78) U/L Alkaline Phosphatase (45-117) U/L Troponin I (0-0.045) ng/ml Total Protein (6.4-8.2) gm/dl Albumin (3.4-5.0) gm/dl Globulin (2.5-4.0) gm/dl Albumin/Globulin Ratio (0.9-2) Procalcitonin (0-0.5) ng/ml TSH (0.300-4.500) uIu/ml Urine Color Urine Appearance (Clear) Urine pH (4.5-7.5) Ur Specific [place] (1.000-1.030) Urine Protein (Negative) Urine Glucose (UA) (Negative) Urine Ketones (Negative) Urine Blood (Negative) Urine Nitrite (Negative) Urine Bilirubin (Negative) Urine Urobilinogen (Negative) Ur Leukocyte Esterase (Negative) Urine WBC (Auto) (0-5) /hpf Urine RBC (Auto) (0-4) /hpf U Hyaline Cast (Auto) (0-5) /lpf U Epithel Cells (Auto) (0-5) /lpf Urine Bacteria (Auto) (Negative) COVID-19 Eval Order Covid19 Done at [facility] COVID-19 PCR NEGATIVE (Negative) Hepatitis A IgM Ab (NON-REACTIVE) Hep Bs Antigen (Neg) Hep B Core IgM Ab (NON-REACTIVE) Hepatitis C Antibody (Neg) HIV 1&2 Ab/P24 Ag 4thGn (Neg) Influenza Type A (PCR) Neg for Influ A (Neg) Influenza Type B (PCR) Neg for Influ B (Neg) 01/15/20 01/15/20 01/15/20 Range/Units 19:32 19:32 19:32 WBC 2.06 L (4.8-10.8) K/uL RBC 3.23 L (4.7-6.1) M/uL Hgb 9.3 L (14.0-18.0) g/dL Hct 27.3 L (42-52) % MCV 84.5 (80-100) fL MCH 28.8 (25-34) pg MCHC 34.1 (32-36) g/dL RDW Std Deviation 42.4 (36.4-46.3) fL RDW Coeff of Nathen 13.5 (11.5-14.5) % Plt Count 164 (130-400) K/uL MPV 10.4 (7.4-10.4) fL Neutrophils % (Manual) 40.0 % Lymphocytes % (Manual) 28.0 % Monocytes % (Manual) 32.0 % Neutrophils # (Manual) 0.82 L (1.4-6.5) K/uL Total Absolute Neuts 0.82 L* (1.4-6.5) K/uL Lymphocytes # (Manual) 0.58 L (1.2-3.4) K/uL Total Abs Lymphocytes 0.58 L (1.2-3.4) K/uL Monocytes # (Manual) 0.66 H (0.11-0.59) K/uL Dohle Bodies 1+ PT (9.0-12.0) Seconds INR (0.9-1.1) APTT (21.0-31.0) Seconds PTT Ratio Sodium 132 L (136-145) mmol/L Potassium 3.0 L (3.5-5.1) mmol/L Chloride 96 L (98-107) mmol/L Carbon Dioxide 25 (21-32) mmol/L Anion Gap 11.0 (3-11) BUN 17 (7-18) mg/dl Creatinine 0.98 (0.6-1.4) mg/dl Est Cr Clr Drug Dosing 74.6 ml/min Est GFR ( Amer) 103.8 Est GFR (Non-Af Amer) 89.5 BUN/Creatinine Ratio 17.2 (10-20) Glucose 94 (70-99) mg/dl Lactate (0.4-2.0) mmol/L Calcium 8.6 (8.5-10.1) mg/dl Magnesium 1.8 (1.8-2.4) mg/dl Iron 17 L (35-175) mcg/dl TIBC 148 L (250-450) mcg/dl Transferrin 125 L (200-360) mg/dl Ferritin 4677.1 H (8-388) ng/ml Total Bilirubin 1.3 H (0.2-1) mg/dl AST 88 H (15-37) U/L ALT 39 (12-78) U/L Alkaline Phosphatase 232 H (45-117) U/L Troponin I 0.042 (0-0.045) ng/ml Total Protein 7.5 (6.4-8.2) gm/dl Albumin 2.6 L (3.4-5.0) gm/dl Globulin 4.9 H (2.5-4.0) gm/dl Albumin/Globulin Ratio 0.5 L (0.9-2) Procalcitonin 1.85 H (0-0.5) ng/ml TSH 0.504 (0.300-4.500) uIu/ml Urine Color Urine Appearance (Clear) Urine pH (4.5-7.5) Ur Specific [place] (1.000-1.030) Urine Protein (Negative) Urine Glucose (UA) (Negative) Urine Ketones (Negative) Urine Blood (Negative) Urine Nitrite (Negative) Urine Bilirubin (Negative) Urine Urobilinogen (Negative) Ur Leukocyte Esterase (Negative) Urine WBC (Auto) (0-5) /hpf Urine RBC (Auto) (0-4) /hpf U Hyaline Cast (Auto) (0-5) /lpf U Epithel Cells (Auto) (0-5) /lpf Urine Bacteria (Auto) (Negative) COVID-19 Eval Order COVID-19 PCR (Negative) Hepatitis A IgM Ab (NON-REACTIVE) Hep Bs Antigen (Neg) Hep B Core IgM Ab (NON-REACTIVE) Hepatitis C Antibody (Neg) HIV 1&2 Ab/P24 Ag 4thGn (Neg) Influenza Type A (PCR) (Neg) Influenza Type B (PCR) (Neg) 01/15/20 01/15/20 01/15/20 Range/Units 19:32 19:32 19:32 WBC (4.8-10.8) K/uL RBC (4.7-6.1) M/uL Hgb (14.0-18.0) g/dL Hct (42-52) % MCV (80-100) fL MCH (25-34) pg MCHC (32-36) g/dL RDW Std Deviation (36.4-46.3) fL RDW Coeff of Nathen (11.5-14.5) % Plt Count (130-400) K/uL MPV (7.4-10.4) fL Neutrophils % (Manual) % Lymphocytes % (Manual) % Monocytes % (Manual) % Neutrophils # (Manual) (1.4-6.5) K/uL Total Absolute Neuts (1.4-6.5) K/uL Lymphocytes # (Manual) (1.2-3.4) K/uL Total Abs Lymphocytes (1.2-3.4) K/uL Monocytes # (Manual) (0.11-0.59) K/uL Dohle Bodies PT 13.3 H (9.0-12.0) Seconds INR 1.3 H (0.9-1.1) APTT 33.7 H (21.0-31.0) Seconds PTT Ratio 1.2 Sodium (136-145) mmol/L Potassium (3.5-5.1) mmol/L Chloride (98-107) mmol/L Carbon Dioxide (21-32) mmol/L Anion Gap (3-11) BUN (7-18) mg/dl Creatinine (0.6-1.4) mg/dl Est Cr Clr Drug Dosing ml/min Est GFR ( Amer) Est GFR (Non-Af Amer) BUN/Creatinine Ratio (10-20) Glucose (70-99) mg/dl Lactate (0.4-2.0) mmol/L Calcium (8.5-10.1) mg/dl Magnesium (1.8-2.4) mg/dl Iron (35-175) mcg/dl TIBC (250-450) mcg/dl Transferrin (200-360) mg/dl Ferritin (8-388) ng/ml Total Bilirubin (0.2-1) mg/dl AST (15-37) U/L ALT (12-78) U/L Alkaline Phosphatase (45-117) U/L Troponin I (0-0.045) ng/ml Total Protein (6.4-8.2) gm/dl Albumin (3.4-5.0) gm/dl Globulin (2.5-4.0) gm/dl Albumin/Globulin Ratio (0.9-2) Procalcitonin (0-0.5) ng/ml TSH (0.300-4.500) uIu/ml Urine Color Urine Appearance (Clear) Urine pH (4.5-7.5) Ur Specific [place] (1.000-1.030) Urine Protein (Negative) Urine Glucose (UA) (Negative) Urine Ketones (Negative) Urine Blood (Negative) Urine Nitrite (Negative) Urine Bilirubin (Negative) Urine Urobilinogen (Negative) Ur Leukocyte Esterase (Negative) Urine WBC (Auto) (0-5) /hpf Urine RBC (Auto) (0-4) /hpf U Hyaline Cast (Auto) (0-5) /lpf U Epithel Cells (Auto) (0-5) /lpf Urine Bacteria (Auto) (Negative) COVID-19 Eval Order COVID-19 PCR (Negative) Hepatitis A IgM Ab NON-REACTIVE (NON-REACTIVE) Hep Bs Antigen Neg (Neg) Hep B Core IgM Ab NON-REACTIVE (NON-REACTIVE) Hepatitis C Antibody Neg (Neg) HIV 1&2 Ab/P24 Ag 4thGn (Neg) Influenza Type A (PCR) (Neg) Influenza Type B (PCR) (Neg) 01/15/20 01/15/20 01/15/20 Range/Units 19:32 19:50 21:09 WBC (4.8-10.8) K/uL RBC (4.7-6.1) M/uL Hgb (14.0-18.0) g/dL Hct (42-52) % MCV (80-100) fL MCH (25-34) pg MCHC (32-36) g/dL RDW Std Deviation (36.4-46.3) fL RDW Coeff of Nathen (11.5-14.5) % Plt Count (130-400) K/uL MPV (7.4-10.4) fL Neutrophils % (Manual) % Lymphocytes % (Manual) % Monocytes % (Manual) % Neutrophils # (Manual) (1.4-6.5) K/uL Total Absolute Neuts (1.4-6.5) K/uL Lymphocytes # (Manual) (1.2-3.4) K/uL Total Abs Lymphocytes (1.2-3.4) K/uL Monocytes # (Manual) (0.11-0.59) K/uL Dohle Bodies PT (9.0-12.0) Seconds INR (0.9-1.1) APTT (21.0-31.0) Seconds PTT Ratio Sodium (136-145) mmol/L Potassium (3.5-5.1) mmol/L Chloride (98-107) mmol/L Carbon Dioxide (21-32) mmol/L Anion Gap (3-11) BUN (7-18) mg/dl Creatinine (0.6-1.4) mg/dl Est Cr Clr Drug Dosing ml/min Est GFR ( Amer) Est GFR (Non-Af Amer) BUN/Creatinine Ratio (10-20) Glucose (70-99) mg/dl Lactate 1.0 (0.4-2.0) mmol/L Calcium (8.5-10.1) mg/dl Magnesium (1.8-2.4) mg/dl Iron (35-175) mcg/dl TIBC (250-450) mcg/dl Transferrin (200-360) mg/dl Ferritin (8-388) ng/ml Total Bilirubin (0.2-1) mg/dl AST (15-37) U/L ALT (12-78) U/L Alkaline Phosphatase (45-117) U/L Troponin I (0-0.045) ng/ml Total Protein (6.4-8.2) gm/dl Albumin (3.4-5.0) gm/dl Globulin (2.5-4.0) gm/dl Albumin/Globulin Ratio (0.9-2) Procalcitonin (0-0.5) ng/ml TSH (0.300-4.500) uIu/ml Urine Color Dark Yellow Urine Appearance Clear (Clear) Urine pH 5.5 (4.5-7.5) Ur Specific [place] 1.014 (1.000-1.030) Urine Protein 2+ H (Negative) Urine Glucose (UA) Negative (Negative) Urine Ketones Negative (Negative) Urine Blood Trace H (Negative) Urine Nitrite Negative (Negative) Urine Bilirubin Negative (Negative) Urine Urobilinogen Positive H (Negative) Ur Leukocyte Esterase Negative (Negative) Urine WBC (Auto) 1-5 (0-5) /hpf Urine RBC (Auto) 0-4 (0-4) /hpf U Hyaline Cast (Auto) 1-5 (0-5) /lpf U Epithel Cells (Auto) 5-10 H (0-5) /lpf Urine Bacteria (Auto) Negative (Negative) COVID-19 Eval Order COVID-19 PCR (Negative) Hepatitis A IgM Ab (NON-REACTIVE) Hep Bs Antigen (Neg) Hep B Core IgM Ab (NON-REACTIVE) Hepatitis C Antibody (Neg) HIV 1&2 Ab/P24 Ag 4thGn Prelim Pos A (Neg) Influenza Type A (PCR) (Neg) Influenza Type B (PCR) (Neg) Imaging Data My Impression: X-ray: I interpreted the following studies. Chest: A single view study of the chest was reviewed and was negative for cardiomegaly, effusion, pulmonary edema, or wide mediastinum. Patient with appearance of large right pneumonia. ECG Data Attestation: I personally reviewed and interpreted this ECG as follows: Indication: + weakness Rate (beats per minute): 167 Rhythm: + atrial flutter ECG Intervals/blocks: + Normal QRS and + Prolonged QT ECG [place]: + Normal ECG ST segments: + Nonspecific ST abnormalities Blood Pressure Blood Pressure Findings: Low blood pressure MDM Narrative Ill-appearing man who presented due to concern for possible coronavirus and dehydration. Patient found to be anemic, leukopenic, with a right-sided pneumonia. Cultures are drawn and sent. Patient given IV fluids and started on broad-spectrum antibiotics. Patient's coronavirus test was negative despite symptoms. Despite patient's report of feeling improved, he continued to be hypotensive so central line was placed. Patient started on norepinephrine. Case was discussed with hospitalist who also discussed the case with the ICU. Patient denied any history of IV drug abuse. Patient with an elevated procalcitonin and lactic acid. An order was placed for continuous cardiac monitoring. The monitor shows a rate of 80 with normal sinus rhythm. Impression & Plan Sepsis, Pneumonia, Leukopenia, Anemia, Dehydration, Hypokalemia Discharge Plan Visit Data Chief Complaint: Dehydration Stated Complaint: DEHYDRATED - FEVER - DECREASE IN URINATE/PAINFUL ED Provider: Britany Broussard Discharge Problem: Sepsis, Pneumonia, Leukopenia, Anemia, Dehydration, Hypokalemia Patient Disposition: Admitted As Inpatient Condition: Critical Discharge Instructions Interventions: ED Discharge Assessment Last Done: 01/15/20 22:27 Discharge Problem: Sepsis Qualifiers: Sepsis type: sepsis due to unspecified organism Sepsis acute organ dysfunction status: with acute organ dysfunction Severe sepsis acute organ dysfunction type: unspecified Severe sepsis shock status: with septic shock Qualified Code(s): A41.9 - Sepsis, unspecified organism Pneumonia Qualifiers: Pneumonia type: due to unspecified organism Laterality: right Lung location: lower lobe of lung Qualified Code(s): J18.9 - Pneumonia, unspecified organism Leukopenia Qualifiers: Leukopenia type: unspecified Qualified Code(s): D72.819 - Decreased white blood cell count, unspecified Anemia Qualifiers: Anemia type: unspecified type Qualified Code(s): D64.9 - Anemia, unspecified
[2020-01-15] MEDS ORDERED: SODIUM CHLORIDE 0.9% 1000ML 1,000 ML IV ONE ×2 (19:32→20:04)
[2020-01-15] MEDS ORDERED: ACETAMINOPHEN 1,000 MG/100 ML VIAL IV STA (19:32)
[2020-01-15] MEDS ORDERED: CEFEPIME 2,000 MG/20 ML VIAL IV STA (19:32)
[2020-01-15 19:52] LABS: Hematocrit (blood only) 27.3 % (42-52); Hemoglobin 9.3 g/dL (14.0-18.0); Mean Corpuscular Hemoglobin 28.8 pg (25-34); Mean Corpuscular Hgb Conc 34.1 g/dL (32-36); Mean Corpuscular Volume 84.5 fL (80-100); Mean Platelet Volume 10.4 fL (7.4-10.4); Platelet Count 164 K/uL (130-400); RDW Coefficient of Variation 13.5 % (11.5-14.5); RDW Standard Deviation 42.4 fL (36.4-46.3); Red Blood Count 3.23 M/uL (4.7-6.1); White Blood Count 2.06 K/uL (4.8-10.8)
[2020-01-15 20:03] LABS: INR 1.3 (0.9-1.1); Partial Thromboplastin Ratio 1.2; Partial Thromboplastin Time 33.7 Seconds (21.0-31.0); Prothrombin Time 13.3 Seconds (9.0-12.0)
[2020-01-15 20:09] LABS: Albumin Level 2.6 gm/dl (3.4-5.0); BUN Creatinine Ratio 17.2 (10-20); Calcium 8.6 mg/dl (8.5-10.1); Creatinine Clr Calc Pharmacy 74.6 ml/min; Est GFR (African American) 103.8; Est GFR (Non-African American) 89.5; Magnesium 1.8 mg/dl (1.8-2.4)
[2020-01-15 20:10] LABS: Appearance Urine Clear (Clear); Bacteria Urine Automated Negative (Negative); Bilirubin Urine Negative (Negative); Blood Urine Trace (Negative); Color Urine Dark Yellow; Glucose Urine UA Negative (Negative); Ketones Urine Negative (Negative); Leukocyte Esterase Urine Negative (Negative); Nitrite Urine Negative (Negative); Protein Urine 2+ (Negative); RBC Urine Automated 0-4 /hpf (0-4); Specific Gravity Urine 1.014 (1.000-1.030); Urobilinogen Urine Positive (Negative); pH Urine 5.5 (4.5-7.5)
[2020-01-15 20:20] LABS: Albumin Globulin Ratio 0.5 (0.9-2); Bilirubin,Total 1.3 mg/dl (0.2-1); Globulin 4.9 gm/dl (2.5-4.0); Thyroid Stimulating Hormone 0.504 uIu/ml (0.300-4.500); Total Protein 7.5 gm/dl (6.4-8.2); Troponin I 0.042 ng/ml (0-0.045)
[2020-01-15] MEDS ORDERED: DEXAMETHASONE SOD INJ 10 MG/ML VIAL IV ONE (20:25)
[2020-01-15] MEDS ORDERED: VANCOMYCIN CONSULT ACTIVE PRN (20:30)
[2020-01-15] MEDS ORDERED: VANCOMYCIN HCL 1,250 MG in SODIUM CHLORIDE 0.9% 500 ML IV ONE (20:30)
[2020-01-15 20:37] LABS: ALC (manual) 0.58 K/uL (1.2-3.4); ANC (manual) 0.82 K/uL (1.4-6.5); Dohle Bodies 1+; Lymphocytes # (manual) 0.58 K/uL (1.2-3.4); Monocytes # (manual) 0.66 K/uL (0.11-0.59); Neutrophils # (manual) 0.82 K/uL (1.4-6.5)
[2020-01-15 20:45] LABS: Influenza A virus by PCR Neg for Influ A (Neg); Influenza B virus by PCR Neg for Influ B (Neg)
[2020-01-15 21:04] LABS: SARS CoV2 RNA(COVID-19) InHosp NEGATIVE (Negative)
[2020-01-15] MEDS ORDERED: FAMOTIDINE 20MG/5ML IV PUSH IV STA (21:04)
[2020-01-15] MEDS: SODIUM CHLORIDE 0.9% 1000ML 1,000 ML IV SCH (21:12)
[2020-01-15] MEDS ORDERED: AZITHROMYCIN 500 MG in DEXTROSE 5% 250 ML IV STA (21:14)
[2020-01-15] MEDS ORDERED: STAT IV Infusion **Titration per Protocol STA (21:46)
[2020-01-15] MEDS ORDERED: NOREPINEPHRINE (Adult STAT Only) 4 MG in D5W 250 ML IV STA (21:53)
[2020-01-15] MEDS ORDERED: ALBUMIN 5% 250 ML IV ONE (22:00)
[2020-01-15] MEDS: NOREPINEPHRINE BIT INJ 8 MG in DEXTROSE 5% 500 ML IV SCH (22:26)
[2020-01-15] MEDS ORDERED: ICU PROTOCOL FOR HYPERGLYCEMIA PRN (23:07)
[2020-01-15] MEDS ORDERED: NORMOSOL-R 1,000 ML IV SCH (23:07)
[2020-01-16 00:19] LABS: Ferritin 4677.1 ng/ml (8-388)
[2020-01-16 00:28] LABS: Hepatitis B Surface Antigen Neg (Neg)
--- NOTE | 2020-01-16 00:30 | Critical Care Consultation ---
Date of Consultation January 15, 2020 Assessment & Plan (1) Septic shock: Reason Critically Ill: 49-year-old male with pneumonia and septic shock requiring vasopressor support. Neuro - [facility] ICU: Negative Cardiac - Hypotension/shocklikely secondary to sepsis as patient presents with elevated lactate and pro Adalberto and appears to have right lung infiltrate on chest x-ray, see management below -Received 3 L crystalloid without improvement in the ED -CVC inserted in the ED and started on levo drip, maps greater than 65 -Echo pending in a.m. -Troponin negative Atrial flutterinitially presented with atrial flutter on EKG -Appears to resolved following IV fluid bolus, currently NSR - will hold on beta-blockers patient currently hypotensive -Continuous monitoring on telemetry Respiratory - Pneumoniacurrently maintaining sats on 2 L nasal cannula, no respiratory distress -No prior history of pulmonary disease but does report smoking 3 to 4 cigarettes/day and infrequent marijuana use -Chest x-ray concerning for right lung infiltrate -Rapid PCR COVID-19 and influenza PCR negative, send out for COVID-19 test pending -Elevated lactate and pro Adalberto concerning for sepsis with likely pulmonary source, started on broad-spectrum antibiotics see below -CT chest pending -Nebs PRN -Continuous monitoring on pulse ox GI - N.p.o. Patient did report episode of diarrhea earlier today but no further episodes Also noted to have mild nonspecific abdominal tenderness with palpation on exam Transaminitismild, likely secondary to hypotension -Given patient's history of drug abuse, hep C pending -We will continue to trend LFTs and consider imaging if continued to worsen RENAL/LYTES - Creatinine within normal limits Monitor electrolytes routine BMPs and replete as indicated - Strict I's and O's ENDO - No history of diabetes or thyroid disease, TSH within normal limits ICU hyperglycemic protocol HEME - Normocytic anemiaappears to be chronic based off prior CBCs -could be secondary to chronic malnutrition/drug abuse, no signs of bleeding -Hemoglobin currently within acceptable levels at 9, no indication for transfusion at this time -Anemia work-up pending Leukopeniaunsure etiology at this time, bone marrow suppression in the setting of drug abuse? -HIV and hep C pending, UDS pending -We will continue to monitor CBC for now, consider heme-onc consultation? ID - Sepsispresents with hypotension and elevated lactate and procalcitonin -UA unremarkable -Blood cultures pending -Rapid COVID and influenza PCR negative, COVID-19 send out -Continue airborne precautions for now -Continue Vanco, cefepime, azithromycin LINES/IV ACCESS - CVC, PIV's DVT PROPHYLAXIS - SCDs, heparin I have personally spent 50 minutes of critical care time in the direct management of this patient. This is a life/limb threatening event. This includes time spent evaluating patient, direct bedside care, chart review, placing orders, interpretation of diagnostic studies, discussion with consultants, patient, and family members, as well as other required patient management activities. This time is exclusive of all separately billable procedures, and teaching time and separate from and in addition to any other critical care service time. Thank you for allowing us to participate in the care of this patient. Please refer to my attending physician's documentation for any further recommendations. (2) Hypotension: (3) Pneumonia: (4) Hypoxia: (5) Admitted to intensive care unit: (6) Transaminitis: (7) Leukopenia: (8) Anemia: History of Present Illness Attending Physician: Sanket Mckay MD History of Present Illness 49-year-old male H of drug abuse, dental abscess, streptococcal bacteremia presented to the emergency department earlier this evening with complaints concerning for COVID including shortness of breath, fatigue, sore throat, cough, rhinorrhea, reduced sensation of taste and smell, diarrhea, headache, and subjective fever. Patient states that his roommate was sick for approximately 2 weeks but did not get tested for COVID-19 and he started to develop symptoms 2 weeks ago. Rapid COVID-19 and influenza PCR were negative. Patient was found to be hypotensive with elevated lactate and procalcitonin with concern for sepsis. He was also found to be in atrial flutter. He was initially bolused with 3 L crystalloid without improvement of blood pressure but did convert to normal sinus rhythm and he was placed on vasopressors and broad-spectrum antibiotics started. Chest x-ray concerning for pneumonia. Central line inserted in the ED and patient was transferred to the ICU. CT of the chest pending. On arrival to the ICU patient is alert and oriented but rather lethargic. CBC reveals anemia and leukopenia with lymphocytopenia. Airborne precautions were reestablished and patient is currently placed as person of interest due to possibility of false negative. Will repeat COVID-19 testing with send out. Patient did reiterate symptoms as described above. Was also noted that he appears to have cellulitis on bilateral lower extremities which he states is new and he is not sought out medical care for. He currently denies ongoing drug abuse but reports marijuana use 1 week ago. He also denied past use of methamphetamine but had tested positive on previous hospital visit. UDS is pending and HIV and hep C test are also pending. We will continue management in ICU at this time as patient appears to be septic shock with ongoing need for vasopressors. Allergies Allergy/AdvReac Type Severity Reaction Status Date / Time amoxicillin [From Augmentin] Allergy Severe rash, Verified 10/07/18 13:13 swelling in hands and legs clavulanic acid Allergy Severe rash, Verified 10/07/18 13:13 [From Augmentin] swelling in hands and legs clindamycin Allergy Intermediate Rash and Verified 10/07/18 13:13 extremity swelling Home Medications Home Medications Medication Instructions Recorded Confirmed Type ibuprofen [Advil Liqui-Gel] 400 mg PO Q6H PRN 01/15/20 01/15/20 History Patient History Medical History Hypophosphatemia Surgical History No significant past surgical history Family History Other No pertinent family history Social History Smoking Status: Current every day smoker Tobacco Type: Cigarettes Cigarettes Per Day: 3-4; Second Hand Exposure: Yes; Do You Dip or Chew Tobacco: No; Tobacco Cessation Education Requested by Patient: Yes Hx Alcohol Use: No Hx Substance Use: Yes Last Used Substance: Days (ago) Last Used Substance Other:: last week Preferred Language: Bengali Communication Ability: Effective Emissions Inspector Required: No Beliefs That Will Affect Care: None Current Living Situation: Other Current Living Situation Comment: staying with friend Feels Safe at Home: Yes Safety Concerns: Feels Safe At This Time Review of Systems Review of Systems: All systems reviewed & are unremarkable except as noted in HPI & below Physical Exam Constitutional: + frail appearing, cooperative and + lethargic; + not healthy appearing Eyes: PERRL, conjunctivae normal, anicteric sclerae ENMT: external ear and nose normal, oropharynx normal Neck: trachea midline, no thyromegaly Respiratory: No respiratory distress, nonlabored breathing, no wheezes, rhonchorous breath sounds auscultated bilaterally in all tian but more pronounced over the right middle lobe Cardiovascular: RRR, no murmur, no edema Heart Sounds: normal S1 and normal S2 Vessels: no JVD Extremities: no edema Gastrointestinal (Abdomen): Mild generalized abdominal tenderness, abdomen soft nondistended, normoactive bowel sounds Musculoskeletal: no cyanosis or clubbing, extremities motor strength 5/5 Skin: no rashes, warm and dry Neurologic: PERRL, EOMI, accommodation nl, no face palsy, no dysarthria Psychiatric: A+Ox3, euthymic affect Results & Data Results & Data ([facility]) Vital Signs (Past 12 Hours) Vital Signs Temp Pulse Pulse Resp BP BP Pulse Ox 01/15/20 23:08 36.7 C 85 16 88/60 L 94 01/15/20 22:35 77 18 86/59 L 95 01/15/20 22:27 79 20 76/50 L 96 01/15/20 21:42 96 H 24 80/51 L 96 01/15/20 21:30 37.1 C 94 H 22 79/49 L 96 01/15/20 20:24 39 C H 110 H 24 88/52 L 94 01/15/20 19:49 157 H 24 97/57 L 97 01/15/20 19:43 162 H 168 H 22 97/57 L 97 01/15/20 18:45 39.9 C H 129 H 16 85/54 L 96 Coding Level of Care Code Critical Care 1st 30-74 mins Diagnoses Septic shock A41.9; R65.21 Hypotension I95.9 Hypotension type: unspecified hypotension type Pneumonia J18.9 Hypoxia R09.02 Admitted to intensive care unit Z78.9 Transaminitis R74.0 Leukopenia D72.819 Anemia D64.9 (1) Hypotension Hypotension type: unspecified hypotension type Qualified Code(s): I95.9 - Hypotension, unspecified
[2020-01-16 00:49] LABS: Folate (Folic Acid) 12.54 ng/ml (>5.38)
[2020-01-16 00:56] LABS: Hepatitis C IgG 13Yrs+Old_Rflx Neg (Neg)
[2020-01-16] MEDS: SODIUM CHLORIDE 0.9% 1000ML 1,000 ML IV SCH ×3 (01:13→10:19)
--- NOTE | 2020-01-16 01:38 | History & Physical Report ---
Date of Service January 16, 2020 Assessment & Plan (1) Dehydration: Mir Salgado is a 49 year old man with a past medical history of sepsis after a dental procedure two years ago who presents today with sepsis from an apparent bacterial pneumonia Sepsis CXR showing dense lobar consolidation, plus lung exam and clinical picture consistent with pneumonia Covid negative procalcitonin positive Hypotensive despite 3 L fluid bolus in ED Lactate negative Troponin detectable but not elevated, likely demand ischemia ANC count decreased to .8 We will treat with cefepime, vancomycin and azithromycin Admitted to ICU for pressor support Blood cultures ordered x2 Currently oxygenating well Neutropenia and Anemia Patient has been neutropenic for some time, based on his transient living situation and lack of consistent follow up has never had a workup Differential broad including chronic infection, Cancer, B12 folate deficiency Will order anemia workup, B12 folate and iron studies, Chest CT, hematology consulted Neutropenic precautions HIV and hepatitis pending Hypokalemia Will replace potassium goal of 4 F/E/N: Normosol 200 ml/hour, norepi drip titrating DVT PPx: Lovenox Dispo: Admit to ICU for pressor support and continued antibiotic administration Full Code (2) Anemia: (3) Leukopenia: (4) Transaminitis: (5) Admitted to intensive care unit: (6) Hypoxia: (7) Pneumonia: (8) Septic shock: (9) Hypophosphatemia: Admission and Anticipated Discharge Date Admission Date: January 15, 2020 History of Present Illness Chief Complaint: General Illness Primary Care Provider: Maria Fernanda Torres MD Mir Salgado is a 49 year old man with a past medical history significant of sepsis from a dental infection who presents today for general illness. He tells me he has been sick for the past month. About five weeks ago his roommate was ill with a respiratory illness of some sort and he became ill shortly thereafter. He has not sought medical care but has been very short of breath with fevers chills and lightheadedness. He felt that he got much better last week, but then this week has been ill again worse than ever. He has not taken anything except ibuprofen he has been eating and drinking very poorly for past few weeks. He has not been tested for covid, does not have routine primary care. Has a history of drug use, but tells me he has not used anything in a very long time, denies any history of any IV drug use. Non smoker no alcohol use in [facility]. On presentation to ED patient was found to be tachycardic with pulse rates in the 130's, Hypotensive as low as 70's/50's, febrile with temp of 37.9, and tachypneic with rates in the low twenties. Labwork significant for anemia hgb of 9.3, Neutropenia with ANC of .82, elevated INR of 1.3, elevated APTT of 33.7, hyponatremia, hypokalemia of 3.0, hypoalbuminemia of 2.6. Patient was placed on cefepime and vancomycin and given three liters of NSS with poor response of blood pressure remaining 70's/50's. Decision was made to transfer patient to ICU for pressor support. Allergies Allergy/AdvReac Type Severity Reaction Status Date / Time amoxicillin [From Augmentin] Allergy Severe rash, Verified 10/07/18 13:13 swelling in hands and legs clavulanic acid Allergy Severe rash, Verified 10/07/18 13:13 [From Augmentin] swelling in hands and legs clindamycin Allergy Intermediate Rash and Verified 10/07/18 13:13 extremity swelling Home Medications Home Medications Medication Instructions Recorded Confirmed Type ibuprofen [Advil Liqui-Gel] 400 mg PO Q6H PRN 01/15/20 01/15/20 History Past Med/Surg History Medical History Hypophosphatemia Surgical History No significant past surgical history Family History Other No pertinent family history Social History Smoking Status: Current every day smoker Tobacco Type: Cigarettes Cigarettes Per Day: 3-4; Second Hand Exposure: Yes; Do You Dip or Chew Tobacco: No; Tobacco Cessation Education Requested by Patient: Yes Hx Alcohol Use: No Hx Substance Use: Yes Last Used Substance: Days (ago) Last Used Substance Other:: last week Preferred Language: Azeri Communication Ability: Effective [employer] Service Technician Required: No Beliefs That Will Affect Care: None Current Living Situation: Other Current Living Situation Comment: staying with friend Feels Safe at Home: Yes Safety Concerns: Feels Safe At This Time Review of Systems Review of Systems: All systems reviewed & are unremarkable except as noted in HPI & below Physical Exam Physical Exam: Constitutional ill-appearing 49-year-old man appearing very uncomfortable in bed Eyes: Pupils equal round reactive to light and accommodation bilaterally, extraocular muscle movements intact bilaterally, anicteric sclerae Respiratory: Coarse lung sounds bilaterally decreased on the right, crackles bilateral bases, expiratory wheezes louder on right than left, patient is using accessory muscles to breathe Cardiovascular: Tachycardic regular rhythm, no murmurs no rubs no skips no gallops, peripheral pulses weak femoral pulse easily palpated GI: Abdomen soft nontender no masses no hepatomegaly Neuro: Sluggishly awake, oriented to person place time and situation, closes eyes when nothing spoken to Results & Data Results & Data ([facility]) Vital Signs (Past 12 Hours) Vital Signs Temp Pulse Pulse Resp BP BP Pulse Ox 01/15/20 23:08 36.7 C 85 16 88/60 L 94 01/15/20 22:35 77 18 86/59 L 95 01/15/20 22:27 79 20 76/50 L 96 01/15/20 21:42 96 H 24 80/51 L 96 01/15/20 21:30 37.1 C 94 H 22 79/49 L 96 01/15/20 20:24 39 C H 110 H 24 88/52 L 94 01/15/20 19:49 157 H 24 97/57 L 97 01/15/20 19:43 162 H 168 H 22 97/57 L 97 01/15/20 18:45 39.9 C H 129 H 16 85/54 L 96 Critical Care Time Critical Care Time: Yes Total Critical Care Time: 45 Total critical care time was 45 minutes Supervising Physician Co-Signing Physician Notes Attending addendum: I have physically seen this patient, have supervised the medical residents activities, and agree with the H&P unless as otherwise noted. Assessment and Plan: Right-sided pneumonia/question postobstructive/pneumosepsis- Admit to intensive care unit, Levophed begun in the ED for pressure support. Received 3 L fluid bolus in the ED, will continue with IV fluid rehydration. Follow serial troponins. Empiric broad-spectrum antibiotics with vancomycin, cefepime and azithromycin IV. Duonebs every 4 hours while awake and every 2 hours when necessary. Consult ICU team. Neutropenia/anemia-undetermined cause. May be nutritional: Take B12, folate and iron studies. HIV and hepatitis testing ordered in the ED. Standard neutropenic precautions Consult hematology Remaining orders and notations as noted Resident Activity Tracking Resident Involvement: Resident Care Provided Care Provided: Adult Hospital Medicine (1) Anemia Anemia type: unspecified type Qualified Code(s): D64.9 - Anemia, unspecified (2) Leukopenia Leukopenia type: unspecified Qualified Code(s): D72.819 - Decreased white blood cell count, unspecified (3) Pneumonia Laterality: right Lung location: lower lobe of lung Pneumonia type: due to unspecified organism Qualified Code(s): J18.9 - Pneumonia, unspecified organism
[2020-01-16] MEDS ORDERED: ACETAMINOPHEN 650 MG SUPP PR PRN (02:02)
[2020-01-16 03:16] LABS: Amphetamines+Metham, Urine Neg (Neg); Barbiturates, Urine Neg (Neg); Benzodiazepine, Urine Neg (Neg); Cocaine, Urine Neg (Neg); MDMA (Ecstacy), Urine Neg (Neg); Methadone, Urine Neg (Neg); Opiate, Urine Neg (Neg); Phencyclidine, Urine Neg (Neg)
[2020-01-16] MEDS ORDERED: CEFEPIME 2,000 MG in SYRINGE 7.5 ML IV SCH (04:00)
[2020-01-16 04:56] LABS: Hematocrit (blood only) 25.1 % (42-52); Hemoglobin 8.8 g/dL (14.0-18.0); Mean Corpuscular Hemoglobin 29.6 pg (25-34); Mean Corpuscular Hgb Conc 35.1 g/dL (32-36); Mean Corpuscular Volume 84.5 fL (80-100); Mean Platelet Volume 9.7 fL (7.4-10.4); Platelet Count 113 K/uL (130-400); RDW Coefficient of Variation 13.9 % (11.5-14.5); RDW Standard Deviation 42.5 fL (36.4-46.3); Red Blood Count 2.97 M/uL (4.7-6.1); White Blood Count 2.09 K/uL (4.8-10.8)
[2020-01-16 05:59] LABS: Albumin Globulin Ratio 0.5 (0.9-2); Albumin Level 2.1 gm/dl (3.4-5.0); BUN Creatinine Ratio 18.9 (10-20); Bilirubin,Total 1.2 mg/dl (0.2-1); Calcium 7.7 mg/dl (8.5-10.1); Creatinine Clr Calc Pharmacy 134.2 ml/min; Est GFR (African American) 139.8; Est GFR (Non-African American) 120.6; Globulin 3.9 gm/dl (2.5-4.0); Magnesium 2.2 mg/dl (1.8-2.4); Phosphorus 2.4 mg/dl (2.5-4.9); Potassium 3.1 mmol/L (3.5-5.1)
[2020-01-16] MEDS ORDERED: VANCOMYCIN HCL 1,250 MG in SODIUM CHLORIDE 0.9% 250 ML IV SCH ×2 (06:00→14:00)
[2020-01-16 06:05] LABS: ALC (manual) 0.71 K/uL (1.2-3.4); ANC (manual) 1.23 K/uL (1.4-6.5); Dohle Bodies 1+; Lymphocytes # (manual) 0.71 K/uL (1.2-3.4); Monocytes # (manual) 0.15 K/uL (0.11-0.59); Neutrophils # (manual) 1.23 K/uL (1.4-6.5); Tear Drop Cells 1+
[2020-01-16] MEDS: POTASSIUM CHLORIDE / WTR 20 MEQ/100 ML PLCT IV SCH ×3 (06:45→11:21)
[2020-01-16] MEDS ORDERED: ERTAPENEM SODIUM 1,000 MG in SYRINGE 0 ML IM SCH (07:15)
--- NOTE | 2020-01-16 08:10 | XRay Report ---
XR chest 1V portable CLINICAL HISTORY: SEPSIS COMPARISON STUDY: 10/05/2018 FINDINGS: There are right midlung zone airspace opacity suspicious for pneumonia. The heart is normal in size. The left lung is clear. There is no pneumothorax. There are no pleural effusions.[ IMPRESSION: Right midlung zone airspace opacity suspicious for pneumonia. Films subsequent to treatme nt are recommended in follow-up. ACT 112: Negative or not required by law. Electronically signed by: Shaquille Madrigal M.D. 01/16/2020 8:09 AM
--- NOTE | 2020-01-16 08:15 | XRay Report ---
XR chest 1V portable CLINICAL HISTORY: Central line placement COMPARISON STUDY: 01/15/2020 FINDINGS: There is a right midlung zone airspace opacity suspicious for pneumonia. There is been inte rval insertion of a right internal jugular central venous catheter. The tip projects over the superio r vena cava. There is no pneumothorax.[ IMPRESSION: 1. No pneumothorax status post placement of right internal jugular central venous catheter 2. Right midlung zone airspace opacity suspicious for pneumonia ACT 112: Negative or not required by law. Electronically signed by: Shaquille Madrigal M.D. 01/16/2020 8:13 AM
--- NOTE | 2020-01-16 08:51 | CT Scan Report ---
CT OF THE CHEST WITHOUT IV CONTRAST CLINICAL HISTORY: Concern for postobstructive pneumonia. COMPARISON STUDY: Chest CT October 05, 2018. Chest radiograph 2019. CT DOSE: 706.51 mGycm TECHNIQUE: Axial images of the chest were obtained without IV contrast. Images were reviewed in the axial, sagittal, and coronal planes. IV contrast was not administered for this examination. Automat ed exposure control was utilized for the study. A dose lowering technique was utilized adhering to t he principles of ALARA. FINDINGS: The right internal jugular central line is in place. Tip is within the SVC. Mild cardiomeg tereza is noted. No pericardial effusion. A prominent subcarinal lymph node is noted. Central airways ar e patent. There is no central obstructing mass. There is dense consolidation within the right lower l obe. A 1.3 cm focus of gas suggests minimal cavitation. There is a small right pleural effusion. Ther e is no consolidation within the left lung. There is mild interlobular septal thickening within the l ungs. Bony thorax and upper abdomen are unremarkable IMPRESSION: 1. Dense right lower lobe consolidation suggestive of pneumonia. Small focus of cavitation. Trace rig ht pleural effusion. No central obstructing mass. A follow-up chest CT in 2 months to ensure resoluti on is recommended. 2. Mild interlobular septal thickening suggestive of interstitial pulmonary edema. ACT 112: Negative or not required by law. Electronically signed by: Luis Pérez M.D. 01/16/2020 8:50 AM
[2020-01-16] MEDS: HEPARIN SOD 5,000 UNIT/0.5 ML VIAL SQ SCH ×2 (09:03→20:00)
[2020-01-16] MEDS: ERTAPENEM SODIUM 1,000 MG in SODIUM CHLORIDE 0.9% 50 ML IV SCH (09:04)
--- NOTE | 2020-01-16 09:14 | XRay Report ---
XR KUB/Abdomen 1 view CLINICAL HISTORY: abd pain, diarrhea COMPARISON STUDY: No previous studies for comparison. FINDINGS: There is mild gaseous prominence of the colon. There is no conventional radiographic eviden ce of a high-grade bowel obstruction. There are no calcifications suspicious for urinary tract calcul i. There is a left mid abdominal small bowel loops are the upper limits of normal in diameter. There is a relative paucity of bowel gas within the rectosigmoid. IMPRESSION: Nonspecific bowel gas pattern. No conventional radiographic evidence of a high-grade bow el obstruction. ACT 112: Negative or not required by law. Electronically signed by: Shaquille Madrigal M.D. 01/16/2020 9:13 AM
--- NOTE | 2020-01-16 09:58 | Electrocardiogram Report ---
Test Reason : Blood Pressure : / mmHG Vent. Rate : 167 BPM Atrial Rate : 359 BPM P-R Int : 000 ms QRS Dur : 076 ms QT Int : 294 ms P-R-T Axes : 000 014 044 degrees QTc Int : 490 ms Poor data quality, interpretation may be adversely affected Atrial flutter with variable conduction Nonspecific ST and T wave abnormality Abnormal ECG When compared with ECG of 05-OCT-2018 17:13, Atrial flutter has replaced Sinus rhythm Vent. rate has increased BY 73 BPM Nonspecific T wave abnormality now evident in Inferior leads Nonspecific T wave abnormality now evident in Lateral leads Confirmed by Cuong Quintero ([id number]) on 01/16/2020 9:57:54 AM Referred By: REFERRED SELF Confirmed By:Cuong Quintero
--- NOTE | 2020-01-16 10:07 | Hospitalist Progress Note ---
Date of Service January 16, 2020 Assessment & Plan Admission and Anticipated Discharge Date Admission Date: January 15, 2020 Results & Data Results & Data ([facility]) Vital Signs (Past 12 Hours) Vital Signs Temp Pulse Pulse Resp BP BP Pulse Ox 01/16/20 05:31 34.9 C L 94 H 16 81/59 L 100 01/16/20 05:02 34.8 C L 98 H 16 89/58 L 100 01/16/20 04:31 34.5 C L 86 14 125/93 100 01/16/20 04:01 34.2 C L 85 15 101/65 100 01/16/20 03:31 34.1 C L 92 H 16 85/61 L 100 01/16/20 03:01 34.2 C L 88 15 86/63 L 100 01/16/20 02:31 34.3 C L 90 17 95/66 L 99 01/16/20 02:01 34.6 C L 105 H 13 84/60 L 100 01/16/20 01:31 34.7 C L 89 14 95/72 L 100 01/16/20 01:01 35.1 C L 96 H 17 92/66 L 96 01/16/20 00:46 110 H 18 97/67 L 100 01/16/20 00:31 92 H 15 81/63 L 100 01/16/20 00:30 96 H 14 100/52 L 100 01/15/20 23:50 81 20 87/49 L 93 01/15/20 23:41 99 H 29 H 102/65 96 01/15/20 23:29 76 19 83/61 L 94 01/15/20 23:20 78 21 81/60 L 94 01/15/20 23:09 82 19 88/60 L 90 01/15/20 23:08 36.7 C 85 16 88/60 L 94 01/15/20 23:04 36.7 C 78 15 72/45 L 90 01/15/20 22:35 77 18 86/59 L 95 01/15/20 22:27 79 20 76/50 L 96
--- NOTE | 2020-01-16 10:19 | Critical Care Progress Note ---
Date of Service January 16, 2020 Assessment & Plan (1) Septic shock: Reason Critically Ill: 49-year-old male with pneumonia and septic shock requiring vasopressor support. Neuro - [facility] ICU: Negative Cardiac - Hypotension/shocklikely secondary to sepsis as patient presents with elevated lactate and pro Adalberto and appears to have cavitary right lung infiltrate on chest x-ray, see management below -Received 3 L crystalloid without improvement in the ED -CVC inserted in the ED and started on levo drip, maps greater than 65 -Troponin negative -Random cortisol 23.21 Atrial flutterinitially presented with atrial flutter on EKG - Appears to resolved following IV fluid bolus, currently NSR - will hold on beta-blockers patient currently hypotensive - Continuous monitoring on telemetry - Patient's Jv Vasc score is 0. We will hold off on anticoagulation. In addition to that patient's noncompliance as well as drug abuse puts him at risk for falls and bleeding. Making him not a good candidate. Respiratory - Pneumoniacurrently maintaining sats on 2 L nasal cannula, no respiratory distress -No prior history of pulmonary disease but does report smoking 3 to 4 ci garettes/day and infrequent marijuana use -Rapid PCR COVID-19 and influenza PCR negative, send out for COVID-19 test pending -Elevated lactate and pro Adalberto concerning for sepsis with likely pulmonary source, started on broad-spectrum antibiotics see below -Nebs PRN -Continuous monitoring on pulse ox GI - N.p.o. Patient did report episode of diarrhea earlier today but no further episodes Also noted to have mild nonspecific abdominal tenderness with palpation on exam Transaminitismild, likely secondary to hypotension -Given patient's history of drug abuse, hepatitis C negative -We will continue to trend LFTs and consider imaging if continued to worsen RENAL/LYTES - Creatinine within normal limits Monitor electrolytes routine BMPs and replete as indicated - Strict I's and O's ENDO - No history of diabetes or thyroid disease, TSH within normal limits ICU hyperglycemic protocol HEME - Normocytic anemiaappears to be chronic based off prior CBCs -could be secondary to chronic malnutrition/drug abuse, no signs of bleeding -Hemoglobin currently within acceptable levels at 9, no indication for transfusion at this time -Anemia work-up pending Leukopeniaunsure etiology at this time, bone marrow suppression in the setting of drug abuse? -HIV and hep C pending, UDS pending -We will continue to monitor CBC for now, consider heme-onc consultation? ID - Sepsispresents with hypotension and elevated lactate and procalcitonin -UA unremarkable -Blood cultures pending -Rapid COVID and influenza PCR negative, COVID-19 send out -Continue airborne precautions for now -Continue Vanco, azithromycin, ertapenem --Prophylaxis VTE: Heparin GI: Protonix Lines: Right IJ Diet: N.p.o. Plan: In/out: +3402, urine output 2.7 L Patient has right lower lobe cavitary lesion along with dense consolidation appreciated on CT chest. There is no groundglass opacities. The likelihood of patient having pulmonary Covid-19 is low. Although patient has diarrhea, decrease in taste and smell sensation. I agree with sending repeat Covid-19 and continuing with airborne precautions and contact precautions till then. If the second test is negative I think he can be off the isolation. Elevated LDH is likely from sepsis. Also has protein calorie malnutrition. Patient UDS was positive for marijuana. Alcohol was less than 0.3 Patient's preliminary HIV is positive. Pancytopenia could be from sepsis as well as HIV. Follow-up confirmatory HIV testing. Patient did have a flutter when he came in. His Chadvasc score is 0. Will not start him on anticoagulation. I would like the patient to have anaerobic coverage for the cavitary lesion in the right lower lobe. Patient is allergic to amoxicillin we will give the patient ertapenem instead. Give the patient thiamine, folic acid and change IV fluids to D5 half NS at 80 cc an hour. Patient's alk phos, total bili and AST is a bit elevated. Follow-up GGT. Electrolytes being replaced. I have personally spent 41 minutes of critical care time in the direct management of this patient. This is a life/limb threatening event. This includes time spent evaluating patient, direct bedside care, chart review, placing orders, interpretation of diagnostic studies, discussion with consultants, patient, and family members, as well as other required patient management activities. This time is exclusive of all separately billable procedures, and teaching time and separate from and in addition to any other critical care service time. Please note the above document was generated using voice recognition software. It may contain grammatical, syntax or spelling errors. (2) Hypotension: (3) Pneumonia: (4) Hypoxia: (5) Admitted to intensive care unit: (6) Transaminitis: (7) Leukopenia: (8) Anemia: Admission and Anticipated Discharge Date Admission Date: January 15, 2020 Subjective Patient seen and examined at bedside. No acute distress, no adverse events overnight. On Levophed at the time of examination. Patient states that he feels much better compared to the time when he came to the hospital Denies any chest pain, no shortness of breath, no headache, no nausea, no vomiting. Patient denied any significant coughing or vomiting prior to coming to the hospital. Review of Systems Review of Systems: All systems reviewed & are unremarkable except as noted in Subjective Physical Exam Physical Exam: Constitutional: No acute distress, frail-appearing HEENT: EOMI, PERRLA Respiratory system: Decreased air entry bilaterally, positive right lower lobe crackles, no wheeze, no rhonchi CVS: S1-S2 positive, no murmurs or gallops, tachycardia Abdomen: Soft, nontender, nondistended, positive bowel sounds x4, periumbilical tattoo Extremities: +2 pulses bilaterally radialis/ dorsalis pedis, no cyanosis, no edema Neuro: Awake alert oriented x3 Psych: Normal mood and affect G/U: Positive Vidal Skin: no rashes, warm and dry Lymphatic: no cervical or axillary lymphadenopathy Results & Data Results & Data ([facility]) Vital Signs (Past 12 Hours) Vital Signs Temp Pulse Pulse Resp BP BP Pulse Ox 01/16/20 05:31 34.9 C L 94 H 16 81/59 L 01/16/20 05:02 34.8 C L 98 H 16 89/58 L 01/16/20 04:31 34.5 C L 86 14 125/93 01/16/20 04:01 34.2 C L 85 15 101/65 01/16/20 03:31 34.1 C L 92 H 16 85/61 L 01/16/20 03:01 34.2 C L 88 15 86/63 L 01/16/20 02:31 34.3 C L 90 17 95/66 L 99 01/16/20 02:01 34.6 C L 105 H 13 84/60 L 01/16/20 01:31 34.7 C L 89 14 95/72 L 01/16/20 01:01 35.1 C L 96 H 17 92/66 L 96 01/16/20 00:46 110 H 18 97/67 L 100 01/16/20 00:31 92 H 15 81/63 L 100 01/16/20 00:30 96 H 14 100/52 L 100 01/15/20 23:50 81 20 87/49 L 93 01/15/20 23:41 99 H 29 H 102/65 96 01/15/20 23:29 76 19 83/61 L 94 01/15/20 23:20 78 21 81/60 L 94 01/15/20 23:09 82 19 88/60 L 90 01/15/20 23:08 36.7 C 85 16 88/60 L 94 01/15/20 23:04 36.7 C 78 15 72/45 L 90 01/15/20 22:35 77 18 86/59 L 95 01/15/20 22:27 79 20 76/50 L 96 01/16/20 04:24 01/16/20 04:24 Coding Level of Care Code Critical Care 1st 30-74 mins Diagnoses Septic shock A41.9; R65.21 Hypotension I95.9 Hypotension type: unspecified hypotension type Pneumonia J18.9 Laterality: right Lung location: lower lobe of lung Pneumonia type: due to unspecified organism Hypoxia R09.02 Admitted to intensive care unit Z78.9 Transaminitis R74.0 Leukopenia D72.819 Leukopenia type: unspecified Anemia D64.9 Anemia type: unspecified type Time Spent (min) 41 (1) Hypotension Hypotension type: unspecified hypotension type Qualified Code(s): I95.9 - Hypotension, unspecified (2) Pneumonia Laterality: right Lung location: lower lobe of lung Pneumonia type: due to unspecified organism Qualified Code(s): J18.9 - Pneumonia, unspecified organism (3) Leukopenia Leukopenia type: unspecified Qualified Code(s): D72.819 - Decreased white blood cell count, unspecified (4) Anemia Anemia type: unspecified type Qualified Code(s): D64.9 - Anemia, unspecified
[2020-01-16] MEDS: THIAMINE HCL 100 MG in SYRINGE 9 ML IV SCH (11:21)
[2020-01-16] MEDS: FOLIC ACID 1 MG in SYRINGE 9.8 ML IV SCH (11:21)
[2020-01-16] MEDS: D5W AND 1/2NSS 1,000 ML IV SCH (11:24)
--- NOTE | 2020-01-16 13:13 | Pharmacy Report ---
Pharmacy Abx Initial Consult - Date of Service January 16, 2020 - Pharmacy Dosing Scope Date of Consult: 01/15/20 Consultation requested by: Dr. Khan Pharmacy is consulted to initiate vancomycin IV dosing therapy, order appropriate labs and adjust drug dose/frequency. - Subjective The patient is a 49 year old M admitted on 01/15/20 21:52. - Objective Height: 5 ft 7 in Weight: 60.1 kg Vital Signs (Past 12hrs): Vital Signs Temp Pulse Resp BP Pulse Ox 01/16/20 05:31 34.9 C L 94 H 16 81/59 L 100 01/16/20 05:02 34.8 C L 98 H 16 89/58 L 100 01/16/20 04:31 34.5 C L 86 14 125/93 100 01/16/20 04:01 34.2 C L 85 15 101/65 100 01/16/20 03:31 34.1 C L 92 H 16 85/61 L 100 01/16/20 03:01 34.2 C L 88 15 86/63 L 100 01/16/20 02:31 34.3 C L 90 17 95/66 L 99 01/16/20 02:01 34.6 C L 105 H 13 84/60 L 100 01/16/20 01:31 34.7 C L 89 14 95/72 L 100 01/16/20 01:01 35.1 C L 96 H 17 92/66 L 96 Lab Results (24hrs): Laboratory Tests (24 Hours) 01/16/20 01/16/20 01/15/20 04:24 04:24 19:32 WBC 2.09 L 2.06 L Creatinine 0.56 L D Est Cr Clr Drug Dosing 134.2 Procalcitonin 01/15/20 01/15/20 19:32 19:32 WBC Creatinine 0.98 Est Cr Clr Drug Dosing 74.6 Procalcitonin 1.85 H Micro Results: 01/15/20 19:32 Aerobic Blood Culture - Pending Blood Anaerobic Blood Culture - Pending 01/15/20 19:32 Aerobic Blood Culture - Pending Blood Anaerobic Blood Culture - Pending - Assessment & Plan Assessment 49 year old M ordered empiric vancomycin, azithromycin, and ertapenem for treatment of septic shock (requiring vasopressor support) secondary to pneumonia . Pulmonology consulted - cavitary right lung infiltrate noted on chest x-ray. Procalcitonin of 1.85 ng/mL and lactate of 2.2 mmol/L on admission. Blood cultures x 2 ordered and pending. Of note, patient appears to have long- standing leukopenia (unclear etiology at this time. SCr improved to 0.56 from 0.98 mg/dL overnight. Urine output of ~2350 mL noted. Plan Vancomycin IV * Estimated PK Parameters: Vd 0.7 L/kg, [place] > 0.104 hr-1, t1/2 < 6.6 hr * Loading dose: 1250 mg (21 mg/kg) * Maintenance dose: 1000 mg IV (17 mg/kg) every 8 hours * Goal trough level for pneumonia : 15 to 20 mcg/mL * Trough/Random level ordered for 01/17/20 prior to steady state given aggressive frequency/requiring vasopressor support Ertapnem IV * 1 g q24h - appropriate Azithromycin IV * 500 mg q24h - appropriate Pharmacy will continue to follow and will adjust dose/frequency as necessary. Thank you.
[2020-01-16] MEDS: VANCOMYCIN HCL 1,000 MG in SODIUM CHLORIDE 0.9% 250 ML IV SCH ×2 (14:01→22:20)
--- NOTE | 2020-01-16 14:17 | Hospitalist Progress Note ---
Date of Service January 16, 2020 Assessment & Plan (1) Dehydration: Mir Salgado is a 49 year old man with a past medical history of sepsis after a dental procedure two years ago who presents today with sepsis from an apparent bacterial pneumonia admitted to the ICU, currently improving Sepsis Clinical picture and history was consistent with pneumonia, lung exam and chest x-ray demonstrated dense lobar consolidation, COVID screen was negative, however patient reports history of his roommate being sick and never tested for COVID, send out pending. On admission procalcitonin was positive, lactate negative, troponin mildly elevated, likely demand ischemia, ANC was decreased to 0.8, and he was hypotensive despite 3 L bolus hence and executive assistant consult was placed and the patient was transferred the ICU for further treatment and pressor support. Blood cultures were obtained, and the patient was administered cefepime, Vanco, and azithromycin he improved overnight and is currently in the ICU oxygenating 100% on 2 L. -Care per ICU -Continue antibiotics, narrow pending sensitivities or based on clinical improvement -Still hypotensive requiring pressor support Neutropenia and Anemia Patient has been neutropenic for some time, based on his transient living situation and lack of consistent follow up has never had a kong.p Differential broad including chronic infection, Cancer, B12 folate deficiency amongst others. An anemia work-up was ordered along with B12, iron studies, chest CT, and hematology was consulted. For now continue with neutropenic precautions, HIV and hepatitis were ordered as well. -Pathology consulted appreciate recommendations -Neutropenic precautions -HIV and hepatitis pending Hypokalemia On admission, repleted adequately, potassium goal for -Replete per ICU electrolyte protocol FENa: N.p.o. Code Status: Full code DVT PPX: Heparin PT/OT: Not indicated at present Dispo: ICU pending off pressor support and clinical improvement Frederick Khan MD PGY 2, FCM This chart was completed utilizing [employer] voice recognition software. Grammatical errors, random word insertions, pronoun errors, and in complete sentences are an occasional consequence of the system. Any questions or concerns about the content, text, or information contained within the body of this dictation should be addressed directly to the physician for clarification. (2) Anemia: (3) Leukopenia: (4) Transaminitis: (5) Admitted to intensive care unit: (6) Hypoxia: (7) Pneumonia: (8) Septic shock: (9) Hypophosphatemia: Admission and Anticipated Discharge Date Admission Date: January 15, 2020 Supervising Physician Co-Signing Physician Notes Attending attestation Pt seen and examined in concert with Dr. Khan. In agreement with the documented findings as noted in the resident documentation with any exceptions or additions as noted here. Patient seen and evaluated at bedside under airborne isolation. Reports generally improved shortness of breath and somnolence since admission but still feeling very weak/fatigued. Reports no pain, headache, vision/hearing changes, n/v/d/c, rashes, lesions. On examination, S1/S2 nl RRR no MCG. Difficult pulm exam 2/2 patient positioning, coarse breath sounds with ?rales appreciated. Abd NT/ND BS+ve. 2+ pulses b/l dorsalis. No edema appreciated. Nl mood/affect, AAOx3 Shock in the setting of sepsis 2/2 PNA - ICU management appreciated - maintaining pressure on norepi s/p crystalloid bolus x 3 L PNA - pending BCx. Pending COVID-19 testing (close contact w/ sx, loss of taste/smell x 3 wks). Continue ertapenem, vanc, azithro. Airborne precautions Leukopenia - HIV, preliminarily +ve - awaiting confirmatory testing Anemia - f/u lab studies, trend CBC Atrial flutter, resolved - CHADVasc 0 Transaminitis - likely 2/2 hypotension - trend Subjective Did not physically speak with the patient secondary to concerns for COVID. Patient negative COVID screen however is a COVID test pending. Patient remains in the ICU, care per ICU attending. Briefly from what I can gather from the history. It is appears as if this gentleman has been experiencing symptoms for around a month, imaging is consistent with pneumonia it is been there for a long period of time, patient was obtunded in the ED, has improved since that point. Now satting well on 2 L of oxygen, care per ICU until stable for downgrade. Review of Systems Review of Systems: All systems reviewed & are unremarkable except as noted in HPI & below Physical Exam Physical Exam: See attestation Results & Data Results & Data ([facility]) Vital Signs (Past 12 Hours) Vital Signs Temp Pulse Resp BP Pulse Ox 01/16/20 05:31 34.9 C L 94 H 16 81/59 L 100 01/16/20 05:02 34.8 C L 98 H 16 89/58 L 01/16/20 04:31 34.5 C L 86 14 125/93 01/16/20 04:01 34.2 C L 85 15 101/65 100 01/16/20 03:31 34.1 C L 92 H 16 85/61 L 01/16/20 03:01 34.2 C L 88 15 86/63 L 01/16/20 02:31 34.3 C L 90 17 95/66 L 99 Laboratory Results 01/16/20 01/16/20 01/16/20 Range/Units 14:04 14:04 11:37 WBC (4.8-10.8) K/uL RBC (4.7-6.1) M/uL Hgb (14.0-18.0) g/dL Hct (42-52) % MCV (80-100) fL MCH (25-34) pg MCHC (32-36) g/dL RDW Std Deviation (36.4-46.3) fL RDW Coeff of Nathen (11.5-14.5) % Plt Count (130-400) K/uL MPV (7.4-10.4) fL Neutrophils % (Manual) % Lymphocytes % (Manual) % Monocytes % (Manual) % Neutrophils # (Manual) (1.4-6.5) K/uL Total Absolute Neuts (1.4-6.5) K/uL Lymphocytes # (Manual) (1.2-3.4) K/uL Total Abs Lymphocytes (1.2-3.4) K/uL Monocytes # (Manual) (0.11-0.59) K/uL Dohle Bodies Tear Drop Cells PT (9.0-12.0) Seconds INR (0.9-1.1) APTT (21.0-31.0) Seconds PTT Ratio Sodium Pending (136-145) mmol/L Potassium Pending (3.5-5.1) mmol/L Chloride Pending (98-107) mmol/L Carbon Dioxide Pending (21-32) mmol/L Anion Gap Pending (3-11) BUN Pending (7-18) mg/dl Creatinine Pending (0.6-1.4) mg/dl Est Cr Clr Drug Dosing Pending ml/min Est GFR ( Amer) Pending Est GFR (Non-Af Amer) Pending BUN/Creatinine Ratio Pending (10-20) Glucose Pending (70-99) mg/dl POC Glucose (other) 129 H (70-99) mg/dl Lactate (0.4-2.0) mmol/L Calcium Pending (8.5-10.1) mg/dl Phosphorus Pending (2.5-4.9) mg/dl Magnesium Pending (1.8-2.4) mg/dl Iron (35-175) mcg/dl TIBC (250-450) mcg/dl Transferrin (200-360) mg/dl Ferritin (8-388) ng/ml Total Bilirubin (0.2-1) mg/dl GGT AST (15-37) U/L ALT (12-78) U/L Alkaline Phosphatase (45-117) U/L Lactate Dehydrogenase (87-241) U/L Troponin I (0-0.045) ng/ml Total Protein (6.4-8.2) gm/dl Albumin (3.4-5.0) gm/dl Globulin (2.5-4.0) gm/dl Albumin/Globulin Ratio (0.9-2) Vitamin B12 (211-911) pg/ml Folate (>5.38) ng/ml Procalcitonin (0-0.5) ng/ml TSH (0.300-4.500) uIu/ml Random Cortisol mcg/dl Urine Color Urine Appearance (Clear) Urine pH (4.5-7.5) Ur Specific [place] (1.000-1.030) Urine Protein (Negative) Urine Glucose (UA) (Negative) Urine Ketones (Negative) Urine Blood (Negative) Urine Nitrite (Negative) Urine Bilirubin (Negative) Urine Urobilinogen (Negative) Ur Leukocyte Esterase (Negative) Urine WBC (Auto) (0-5) /hpf Urine RBC (Auto) (0-4) /hpf U Hyaline Cast (Auto) (0-5) /lpf U Epithel Cells (Auto) (0-5) /lpf Urine Bacteria (Auto) (Negative) Nasal Screen MRSA (PCR) (Negative) Urine Opiates Screen (Neg) Ur Methadone, Qual (Neg) Urine Barbiturates (Neg) Ur Phencyclidine (PCP) (Neg) U Amphetamin/Meth Scrn (Neg) MDMA (Ecstasy) Screen (Neg) U Benzodiazepines Scrn (Neg) Ur Cocaine Metabolite (Neg) U Marijuana (THC) Screen (Neg) U Marijuana THC Carboxy Drug Screen Comment Ethyl Alcohol mg/dL (0-3) mg/dl COVID-19 Eval Order COVID-19 PCR (Negative) Nasopharyn COVID-19 PCR Hepatitis A IgM Ab Hep Bs Antigen (Neg) Hep B Core IgM Ab Hepatitis C Antibody (Neg) HIV (1&2) Ag & Ab Conf HIV 1&2 Ab/P24 Ag 4thGn (Neg) Influenza Type A (PCR) (Neg) Influenza Type B (PCR) (Neg) 01/16/20 01/16/20 01/16/20 Range/Units 09:09 09:09 07:23 WBC (4.8-10.8) K/uL RBC (4.7-6.1) M/uL Hgb (14.0-18.0) g/dL Hct (42-52) % MCV (80-100) fL MCH (25-34) pg MCHC (32-36) g/dL RDW Std Deviation (36.4-46.3) fL RDW Coeff of Nathen (11.5-14.5) % Plt Count (130-400) K/uL MPV (7.4-10.4) fL Neutrophils % (Manual) % Lymphocytes % (Manual) % Monocytes % (Manual) % Neutrophils # (Manual) (1.4-6.5) K/uL Total Absolute Neuts (1.4-6.5) K/uL Lymphocytes # (Manual) (1.2-3.4) K/uL Total Abs Lymphocytes (1.2-3.4) K/uL Monocytes # (Manual) (0.11-0.59) K/uL Dohle Bodies Tear Drop Cells PT (9.0-12.0) Seconds INR (0.9-1.1) APTT (21.0-31.0) Seconds PTT Ratio Sodium (136-145) mmol/L Potassium (3.5-5.1) mmol/L Chloride (98-107) mmol/L Carbon Dioxide (21-32) mmol/L Anion Gap (3-11) BUN (7-18) mg/dl Creatinine (0.6-1.4) mg/dl Est Cr Clr Drug Dosing ml/min Est GFR ( Amer) Est GFR (Non-Af Amer) BUN/Creatinine Ratio (10-20) Glucose (70-99) mg/dl POC Glucose (other) (70-99) mg/dl Lactate (0.4-2.0) mmol/L Calcium (8.5-10.1) mg/dl Phosphorus (2.5-4.9) mg/dl Magnesium (1.8-2.4) mg/dl Iron (35-175) mcg/dl TIBC (250-450) mcg/dl Transferrin (200-360) mg/dl Ferritin (8-388) ng/ml Total Bilirubin (0.2-1) mg/dl GGT Pending AST (15-37) U/L ALT (12-78) U/L Alkaline Phosphatase (45-117) U/L Lactate Dehydrogenase (87-241) U/L Troponin I (0-0.045) ng/ml Total Protein (6.4-8.2) gm/dl Albumin (3.4-5.0) gm/dl Globulin (2.5-4.0) gm/dl Albumin/Globulin Ratio (0.9-2) Vitamin B12 (211-911) pg/ml Folate (>5.38) ng/ml Procalcitonin (0-0.5) ng/ml TSH (0.300-4.500) uIu/ml Random Cortisol 23.21 mcg/dl Urine Color Urine Appearance (Clear) Urine pH (4.5-7.5) Ur Specific [place] (1.000-1.030) Urine Protein (Negative) Urine Glucose (UA) (Negative) Urine Ketones (Negative) Urine Blood (Negative) Urine Nitrite (Negative) Urine Bilirubin (Negative) Urine Urobilinogen (Negative) Ur Leukocyte Esterase (Negative) Urine WBC (Auto) (0-5) /hpf Urine RBC (Auto) (0-4) /hpf U Hyaline Cast (Auto) (0-5) /lpf U Epithel Cells (Auto) (0-5) /lpf Urine Bacteria (Auto) (Negative) Nasal Screen MRSA (PCR) (Negative) Urine Opiates Screen (Neg) Ur Methadone, Qual (Neg) Urine Barbiturates (Neg) Ur Phencyclidine (PCP) (Neg) U Amphetamin/Meth Scrn (Neg) MDMA (Ecstasy) Screen (Neg) U Benzodiazepines Scrn (Neg) Ur Cocaine Metabolite (Neg) U Marijuana (THC) Screen (Neg) U Marijuana THC Carboxy Drug Screen Comment Ethyl Alcohol mg/dL < 3.0 (0-3) mg/dl COVID-19 Eval Order COVID-19 PCR (Negative) Nasopharyn COVID-19 PCR Hepatitis A IgM Ab Hep Bs Antigen (Neg) Hep B Core IgM Ab Hepatitis C Antibody (Neg) HIV (1&2) Ag & Ab Conf HIV 1&2 Ab/P24 Ag 4thGn (Neg) Influenza Type A (PCR) (Neg) Influenza Type B (PCR) (Neg) 01/16/20 01/16/20 01/16/20 Range/Units 04:24 04:24 04:24 WBC 2.09 L (4.8-10.8) K/uL RBC 2.97 L (4.7-6.1) M/uL Hgb 8.8 L (14.0-18.0) g/dL Hct 25.1 L (42-52) % MCV 84.5 (80-100) fL MCH 29.6 (25-34) pg MCHC 35.1 (32-36) g/dL RDW Std Deviation 42.5 (36.4-46.3) fL RDW Coeff of Nathen 13.9 (11.5-14.5) % Plt Count 113 L (130-400) K/uL MPV 9.7 (7.4-10.4) fL Neutrophils % (Manual) 59.0 % Lymphocytes % (Manual) 34.0 % Monocytes % (Manual) 7.0 % Neutrophils # (Manual) 1.23 L (1.4-6.5) K/uL Total Absolute Neuts 1.23 L (1.4-6.5) K/uL Lymphocytes # (Manual) 0.71 L (1.2-3.4) K/uL Total Abs Lymphocytes 0.71 L (1.2-3.4) K/uL Monocytes # (Manual) 0.15 (0.11-0.59) K/uL Dohle Bodies 1+ Tear Drop Cells 1+ PT (9.0-12.0) Seconds INR (0.9-1.1) APTT (21.0-31.0) Seconds PTT Ratio Sodium 144 D (136-145) mmol/L Potassium 3.1 L (3.5-5.1) mmol/L Chloride 114 H (98-107) mmol/L Carbon Dioxide 22 (21-32) mmol/L Anion Gap 8.0 (3-11) BUN 11 (7-18) mg/dl Creatinine 0.56 L D (0.6-1.4) mg/dl Est Cr Clr Drug Dosing 134.2 ml/min Est GFR ( Amer) 139.8 Est GFR (Non-Af Amer) 120.6 BUN/Creatinine Ratio 18.9 (10-20) Glucose 175 H (70-99) mg/dl POC Glucose (other) (70-99) mg/dl Lactate (0.4-2.0) mmol/L Calcium 7.7 L (8.5-10.1) mg/dl Phosphorus 2.4 L (2.5-4.9) mg/dl Magnesium 2.2 (1.8-2.4) mg/dl Iron (35-175) mcg/dl TIBC (250-450) mcg/dl Transferrin (200-360) mg/dl Ferritin (8-388) ng/ml Total Bilirubin 1.2 H (0.2-1) mg/dl GGT AST 77 H (15-37) U/L ALT 34 (12-78) U/L Alkaline Phosphatase 183 H (45-117) U/L Lactate Dehydrogenase 344 H (87-241) U/L Troponin I (0-0.045) ng/ml Total Protein 6.0 L (6.4-8.2) gm/dl Albumin 2.1 L (3.4-5.0) gm/dl Globulin 3.9 (2.5-4.0) gm/dl Albumin/Globulin Ratio 0.5 L (0.9-2) Vitamin B12 (211-911) pg/ml Folate (>5.38) ng/ml Procalcitonin (0-0.5) ng/ml TSH (0.300-4.500) uIu/ml Random Cortisol mcg/dl Urine Color Urine Appearance (Clear) Urine pH (4.5-7.5) Ur Specific [place] (1.000-1.030) Urine Protein (Negative) Urine Glucose (UA) (Negative) Urine Ketones (Negative) Urine Blood (Negative) Urine Nitrite (Negative) Urine Bilirubin (Negative) Urine Urobilinogen (Negative) Ur Leukocyte Esterase (Negative) Urine WBC (Auto) (0-5) /hpf Urine RBC (Auto) (0-4) /hpf U Hyaline Cast (Auto) (0-5) /lpf U Epithel Cells (Auto) (0-5) /lpf Urine Bacteria (Auto) (Negative) Nasal Screen MRSA (PCR) (Negative) Urine Opiates Screen (Neg) Ur Methadone, Qual (Neg) Urine Barbiturates (Neg) Ur Phencyclidine (PCP) (Neg) U Amphetamin/Meth Scrn (Neg) MDMA (Ecstasy) Screen (Neg) U Benzodiazepines Scrn (Neg) Ur Cocaine Metabolite (Neg) U Marijuana (THC) Screen (Neg) U Marijuana THC Carboxy Drug Screen Comment Ethyl Alcohol mg/dL (0-3) mg/dl COVID-19 Eval Order COVID-19 PCR (Negative) Nasopharyn COVID-19 PCR Hepatitis A IgM Ab Hep Bs Antigen (Neg) Hep B Core IgM Ab Hepatitis C Antibody (Neg) HIV (1&2) Ag & Ab Conf HIV 1&2 Ab/P24 Ag 4thGn (Neg) Influenza Type A (PCR) (Neg) Influenza Type B (PCR) (Neg) 01/16/20 01/16/20 01/16/20 Range/Units 02:20 02:20 00:40 WBC (4.8-10.8) K/uL RBC (4.7-6.1) M/uL Hgb (14.0-18.0) g/dL Hct (42-52) % MCV (80-100) fL MCH (25-34) pg MCHC (32-36) g/dL RDW Std Deviation (36.4-46.3) fL RDW Coeff of Nathen (11.5-14.5) % Plt Count (130-400) K/uL MPV (7.4-10.4) fL Neutrophils % (Manual) % Lymphocytes % (Manual) % Monocytes % (Manual) % Neutrophils # (Manual) (1.4-6.5) K/uL Total Absolute Neuts (1.4-6.5) K/uL Lymphocytes # (Manual) (1.2-3.4) K/uL Total Abs Lymphocytes (1.2-3.4) K/uL Monocytes # (Manual) (0.11-0.59) K/uL Dohle Bodies Tear Drop Cells PT (9.0-12.0) Seconds INR (0.9-1.1) APTT (21.0-31.0) Seconds PTT Ratio Sodium (136-145) mmol/L Potassium (3.5-5.1) mmol/L Chloride (98-107) mmol/L Carbon Dioxide (21-32) mmol/L Anion Gap (3-11) BUN (7-18) mg/dl Creatinine (0.6-1.4) mg/dl Est Cr Clr Drug Dosing ml/min Est GFR ( Amer) Est GFR (Non-Af Amer) BUN/Creatinine Ratio (10-20) Glucose (70-99) mg/dl POC Glucose (other) (70-99) mg/dl Lactate (0.4-2.0) mmol/L Calcium (8.5-10.1) mg/dl Phosphorus (2.5-4.9) mg/dl Magnesium (1.8-2.4) mg/dl Iron (35-175) mcg/dl TIBC (250-450) mcg/dl Transferrin (200-360) mg/dl Ferritin (8-388) ng/ml Total Bilirubin (0.2-1) mg/dl GGT AST (15-37) U/L ALT (12-78) U/L Alkaline Phosphatase (45-117) U/L Lactate Dehydrogenase (87-241) U/L Troponin I (0-0.045) ng/ml Total Protein (6.4-8.2) gm/dl Albumin (3.4-5.0) gm/dl Globulin (2.5-4.0) gm/dl Albumin/Globulin Ratio (0.9-2) Vitamin B12 (211-911) pg/ml Folate (>5.38) ng/ml Procalcitonin (0-0.5) ng/ml TSH (0.300-4.500) uIu/ml Random Cortisol mcg/dl Urine Color Urine Appearance (Clear) Urine pH (4.5-7.5) Ur Specific [place] (1.000-1.030) Urine Protein (Negative) Urine Glucose (UA) (Negative) Urine Ketones (Negative) Urine Blood (Negative) Urine Nitrite (Negative) Urine Bilirubin (Negative) Urine Urobilinogen (Negative) Ur Leukocyte Esterase (Negative) Urine WBC (Auto) (0-5) /hpf Urine RBC (Auto) (0-4) /hpf U Hyaline Cast (Auto) (0-5) /lpf U Epithel Cells (Auto) (0-5) /lpf Urine Bacteria (Auto) (Negative) Nasal Screen MRSA (PCR) (Negative) Urine Opiates Screen Neg (Neg) Ur Methadone, Qual Neg (Neg) Urine Barbiturates Neg (Neg) Ur Phencyclidine (PCP) Neg (Neg) U Amphetamin/Meth Scrn Neg (Neg) MDMA (Ecstasy) Screen Neg (Neg) U Benzodiazepines Scrn Neg (Neg) Ur Cocaine Metabolite Neg (Neg) U Marijuana (THC) Screen Pos H (Neg) U Marijuana THC Carboxy Pending Drug Screen Comment Pending Ethyl Alcohol mg/dL (0-3) mg/dl COVID-19 Eval Order COVID-19 PCR (Negative) Nasopharyn COVID-19 PCR Pending Hepatitis A IgM Ab Hep Bs Antigen (Neg) Hep B Core IgM Ab Hepatitis C Antibody (Neg) HIV (1&2) Ag & Ab Conf HIV 1&2 Ab/P24 Ag 4thGn (Neg) Influenza Type A (PCR) (Neg) Influenza Type B (PCR) (Neg) 01/16/20 01/15/20 01/15/20 Range/Units 00:40 23:57 23:05 WBC (4.8-10.8) K/uL RBC (4.7-6.1) M/uL Hgb (14.0-18.0) g/dL Hct (42-52) % MCV (80-100) fL MCH (25-34) pg MCHC (32-36) g/dL RDW Std Deviation (36.4-46.3) fL RDW Coeff of Nathen (11.5-14.5) % Plt Count (130-400) K/uL MPV (7.4-10.4) fL Neutrophils % (Manual) % Lymphocytes % (Manual) % Monocytes % (Manual) % Neutrophils # (Manual) (1.4-6.5) K/uL Total Absolute Neuts (1.4-6.5) K/uL Lymphocytes # (Manual) (1.2-3.4) K/uL Total Abs Lymphocytes (1.2-3.4) K/uL Monocytes # (Manual) (0.11-0.59) K/uL Dohle Bodies Tear Drop Cells PT (9.0-12.0) Seconds INR (0.9-1.1) APTT (21.0-31.0) Seconds PTT Ratio Sodium (136-145) mmol/L Potassium (3.5-5.1) mmol/L Chloride (98-107) mmol/L Carbon Dioxide (21-32) mmol/L Anion Gap (3-11) BUN (7-18) mg/dl Creatinine (0.6-1.4) mg/dl Est Cr Clr Drug Dosing ml/min Est GFR ( Amer) Est GFR (Non-Af Amer) BUN/Creatinine Ratio (10-20) Glucose (70-99) mg/dl POC Glucose (other) (70-99) mg/dl Lactate (0.4-2.0) mmol/L Calcium (8.5-10.1) mg/dl Phosphorus (2.5-4.9) mg/dl Magnesium (1.8-2.4) mg/dl Iron (35-175) mcg/dl TIBC (250-450) mcg/dl Transferrin (200-360) mg/dl Ferritin (8-388) ng/ml Total Bilirubin (0.2-1) mg/dl GGT AST (15-37) U/L ALT (12-78) U/L Alkaline Phosphatase (45-117) U/L Lactate Dehydrogenase (87-241) U/L Troponin I (0-0.045) ng/ml Total Protein (6.4-8.2) gm/dl Albumin (3.4-5.0) gm/dl Globulin (2.5-4.0) gm/dl Albumin/Globulin Ratio (0.9-2) Vitamin B12 519 (211-911) pg/ml Folate 12.54 (>5.38) ng/ml Procalcitonin (0-0.5) ng/ml TSH (0.300-4.500) uIu/ml Random Cortisol mcg/dl Urine Color Urine Appearance (Clear) Urine pH (4.5-7.5) Ur Specific [place] (1.000-1.030) Urine Protein (Negative) Urine Glucose (UA) (Negative) Urine Ketones (Negative) Urine Blood (Negative) Urine Nitrite (Negative) Urine Bilirubin (Negative) Urine Urobilinogen (Negative) Ur Leukocyte Esterase (Negative) Urine WBC (Auto) (0-5) /hpf Urine RBC (Auto) (0-4) /hpf U Hyaline Cast (Auto) (0-5) /lpf U Epithel Cells (Auto) (0-5) /lpf Urine Bacteria (Auto) (Negative) Nasal Screen MRSA (PCR) Negative (Negative) Urine Opiates Screen (Neg) Ur Methadone, Qual (Neg) Urine Barbiturates (Neg) Ur Phencyclidine (PCP) (Neg) U Amphetamin/Meth Scrn (Neg) MDMA (Ecstasy) Screen (Neg) U Benzodiazepines Scrn (Neg) Ur Cocaine Metabolite (Neg) U Marijuana (THC) Screen (Neg) U Marijuana THC Carboxy Drug Screen Comment Ethyl Alcohol mg/dL (0-3) mg/dl COVID-19 Eval Order Covid19 Sent to [facility] COVID-19 PCR (Negative) Nasopharyn COVID-19 PCR Hepatitis A IgM Ab Hep Bs Antigen (Neg) Hep B Core IgM Ab Hepatitis C Antibody (Neg) HIV (1&2) Ag & Ab Conf HIV 1&2 Ab/P24 Ag 4thGn (Neg) Influenza Type A (PCR) (Neg) Influenza Type B (PCR) (Neg) 01/15/20 01/15/20 01/15/20 Range/Units 21:09 19:50 19:32 WBC (4.8-10.8) K/uL RBC (4.7-6.1) M/uL Hgb (14.0-18.0) g/dL Hct (42-52) % MCV (80-100) fL MCH (25-34) pg MCHC (32-36) g/dL RDW Std Deviation (36.4-46.3) fL RDW Coeff of Nathen (11.5-14.5) % Plt Count (130-400) K/uL MPV (7.4-10.4) fL Neutrophils % (Manual) % Lymphocytes % (Manual) % Monocytes % (Manual) % Neutrophils # (Manual) (1.4-6.5) K/uL Total Absolute Neuts (1.4-6.5) K/uL Lymphocytes # (Manual) (1.2-3.4) K/uL Total Abs Lymphocytes (1.2-3.4) K/uL Monocytes # (Manual) (0.11-0.59) K/uL Dohle Bodies Tear Drop Cells PT (9.0-12.0) Seconds INR (0.9-1.1) APTT (21.0-31.0) Seconds PTT Ratio Sodium (136-145) mmol/L Potassium (3.5-5.1) mmol/L Chloride (98-107) mmol/L Carbon Dioxide (21-32) mmol/L Anion Gap (3-11) BUN (7-18) mg/dl Creatinine (0.6-1.4) mg/dl Est Cr Clr Drug Dosing ml/min Est GFR ( Amer) Est GFR (Non-Af Amer) BUN/Creatinine Ratio (10-20) Glucose (70-99) mg/dl POC Glucose (other) (70-99) mg/dl Lactate 1.0 (0.4-2.0) mmol/L Calcium (8.5-10.1) mg/dl Phosphorus (2.5-4.9) mg/dl Magnesium (1.8-2.4) mg/dl Iron (35-175) mcg/dl TIBC (250-450) mcg/dl Transferrin (200-360) mg/dl Ferritin (8-388) ng/ml Total Bilirubin (0.2-1) mg/dl GGT AST (15-37) U/L ALT (12-78) U/L Alkaline Phosphatase (45-117) U/L Lactate Dehydrogenase (87-241) U/L Troponin I (0-0.045) ng/ml Total Protein (6.4-8.2) gm/dl Albumin (3.4-5.0) gm/dl Globulin (2.5-4.0) gm/dl Albumin/Globulin Ratio (0.9-2) Vitamin B12 (211-911) pg/ml Folate (>5.38) ng/ml Procalcitonin (0-0.5) ng/ml TSH (0.300-4.500) uIu/ml Random Cortisol mcg/dl Urine Color Dark Yellow Urine Appearance Clear (Clear) Urine pH 5.5 (4.5-7.5) Ur Specific [place] 1.014 (1.000-1.030) Urine Protein 2+ H (Negative) Urine Glucose (UA) Negative (Negative) Urine Ketones Negative (Negative) Urine Blood Trace H (Negative) Urine Nitrite Negative (Negative) Urine Bilirubin Negative (Negative) Urine Urobilinogen Positive H (Negative) Ur Leukocyte Esterase Negative (Negative) Urine WBC (Auto) 1-5 (0-5) /hpf Urine RBC (Auto) 0-4 (0-4) /hpf U Hyaline Cast (Auto) 1-5 (0-5) /lpf U Epithel Cells (Auto) 5-10 H (0-5) /lpf Urine Bacteria (Auto) Negative (Negative) Nasal Screen MRSA (PCR) (Negative) Urine Opiates Screen (Neg) Ur Methadone, Qual (Neg) Urine Barbiturates (Neg) Ur Phencyclidine (PCP) (Neg) U Amphetamin/Meth Scrn (Neg) MDMA (Ecstasy) Screen (Neg) U Benzodiazepines Scrn (Neg) Ur Cocaine Metabolite (Neg) U Marijuana (THC) Screen (Neg) U Marijuana THC Carboxy Drug Screen Comment Ethyl Alcohol mg/dL (0-3) mg/dl COVID-19 Eval Order COVID-19 PCR (Negative) Nasopharyn COVID-19 PCR Hepatitis A IgM Ab Hep Bs Antigen (Neg) Hep B Core IgM Ab Hepatitis C Antibody (Neg) HIV (1&2) Ag & Ab Conf Pending HIV 1&2 Ab/P24 Ag 4thGn (Neg) Influenza Type A (PCR) (Neg) Influenza Type B (PCR) (Neg) 01/15/20 01/15/20 01/15/20 Range/Units 19:32 19:32 19:32 WBC (4.8-10.8) K/uL RBC (4.7-6.1) M/uL Hgb (14.0-18.0) g/dL Hct (42-52) % MCV (80-100) fL MCH (25-34) pg MCHC (32-36) g/dL RDW Std Deviation (36.4-46.3) fL RDW Coeff of Nathen (11.5-14.5) % Plt Count (130-400) K/uL MPV (7.4-10.4) fL Neutrophils % (Manual) % Lymphocytes % (Manual) % Monocytes % (Manual) % Neutrophils # (Manual) (1.4-6.5) K/uL Total Absolute Neuts (1.4-6.5) K/uL Lymphocytes # (Manual) (1.2-3.4) K/uL Total Abs Lymphocytes (1.2-3.4) K/uL Monocytes # (Manual) (0.11-0.59) K/uL Dohle Bodies Tear Drop Cells PT (9.0-12.0) Seconds INR (0.9-1.1) APTT (21.0-31.0) Seconds PTT Ratio Sodium (136-145) mmol/L Potassium (3.5-5.1) mmol/L Chloride (98-107) mmol/L Carbon Dioxide (21-32) mmol/L Anion Gap (3-11) BUN (7-18) mg/dl Creatinine (0.6-1.4) mg/dl Est Cr Clr Drug Dosing ml/min Est GFR ( Amer) Est GFR (Non-Af Amer) BUN/Creatinine Ratio (10-20) Glucose (70-99) mg/dl POC Glucose (other) (70-99) mg/dl Lactate (0.4-2.0) mmol/L Calcium (8.5-10.1) mg/dl Phosphorus (2.5-4.9) mg/dl Magnesium (1.8-2.4) mg/dl Iron (35-175) mcg/dl TIBC (250-450) mcg/dl Transferrin (200-360) mg/dl Ferritin (8-388) ng/ml Total Bilirubin (0.2-1) mg/dl GGT AST (15-37) U/L ALT (12-78) U/L Alkaline Phosphatase (45-117) U/L Lactate Dehydrogenase (87-241) U/L Troponin I (0-0.045) ng/ml Total Protein (6.4-8.2) gm/dl Albumin (3.4-5.0) gm/dl Globulin (2.5-4.0) gm/dl Albumin/Globulin Ratio (0.9-2) Vitamin B12 (211-911) pg/ml Folate (>5.38) ng/ml Procalcitonin (0-0.5) ng/ml TSH (0.300-4.500) uIu/ml Random Cortisol mcg/dl Urine Color Urine Appearance (Clear) Urine pH (4.5-7.5) Ur Specific [place] (1.000-1.030) Urine Protein (Negative) Urine Glucose (UA) (Negative) Urine Ketones (Negative) Urine Blood (Negative) Urine Nitrite (Negative) Urine Bilirubin (Negative) Urine Urobilinogen (Negative) Ur Leukocyte Esterase (Negative) Urine WBC (Auto) (0-5) /hpf Urine RBC (Auto) (0-4) /hpf U Hyaline Cast (Auto) (0-5) /lpf U Epithel Cells (Auto) (0-5) /lpf Urine Bacteria (Auto) (Negative) Nasal Screen MRSA (PCR) (Negative) Urine Opiates Screen (Neg) Ur Methadone, Qual (Neg) Urine Barbiturates (Neg) Ur Phencyclidine (PCP) (Neg) U Amphetamin/Meth Scrn (Neg) MDMA (Ecstasy) Screen (Neg) U Benzodiazepines Scrn (Neg) Ur Cocaine Metabolite (Neg) U Marijuana (THC) Screen (Neg) U Marijuana THC Carboxy Drug Screen Comment Ethyl Alcohol mg/dL (0-3) mg/dl COVID-19 Eval Order COVID-19 PCR (Negative) Nasopharyn COVID-19 PCR Hepatitis A IgM Ab Pending Hep Bs Antigen Neg (Neg) Hep B Core IgM Ab Pending Hepatitis C Antibody Neg (Neg) HIV (1&2) Ag & Ab Conf HIV 1&2 Ab/P24 Ag 4thGn Prelim Pos A (Neg) Influenza Type A (PCR) (Neg) Influenza Type B (PCR) (Neg) 01/15/20 01/15/20 01/15/20 Range/Units 19:32 19:32 19:32 WBC 2.06 L (4.8-10.8) K/uL RBC 3.23 L (4.7-6.1) M/uL Hgb 9.3 L (14.0-18.0) g/dL Hct 27.3 L (42-52) % MCV 84.5 (80-100) fL MCH 28.8 (25-34) pg MCHC 34.1 (32-36) g/dL RDW Std Deviation 42.4 (36.4-46.3) fL RDW Coeff of Nathen 13.5 (11.5-14.5) % Plt Count 164 (130-400) K/uL MPV 10.4 (7.4-10.4) fL Neutrophils % (Manual) 40.0 % Lymphocytes % (Manual) 28.0 % Monocytes % (Manual) 32.0 % Neutrophils # (Manual) 0.82 L (1.4-6.5) K/uL Total Absolute Neuts 0.82 L* (1.4-6.5) K/uL Lymphocytes # (Manual) 0.58 L (1.2-3.4) K/uL Total Abs Lymphocytes 0.58 L (1.2-3.4) K/uL Monocytes # (Manual) 0.66 H (0.11-0.59) K/uL Dohle Bodies 1+ Tear Drop Cells PT 13.3 H (9.0-12.0) Seconds INR 1.3 H (0.9-1.1) APTT 33.7 H (21.0-31.0) Seconds PTT Ratio 1.2 Sodium (136-145) mmol/L Potassium (3.5-5.1) mmol/L Chloride (98-107) mmol/L Carbon Dioxide (21-32) mmol/L Anion Gap (3-11) BUN (7-18) mg/dl Creatinine (0.6-1.4) mg/dl Est Cr Clr Drug Dosing ml/min Est GFR ( Amer) Est GFR (Non-Af Amer) BUN/Creatinine Ratio (10-20) Glucose (70-99) mg/dl POC Glucose (other) (70-99) mg/dl Lactate (0.4-2.0) mmol/L Calcium (8.5-10.1) mg/dl Phosphorus (2.5-4.9) mg/dl Magnesium (1.8-2.4) mg/dl Iron (35-175) mcg/dl TIBC (250-450) mcg/dl Transferrin (200-360) mg/dl Ferritin (8-388) ng/ml Total Bilirubin (0.2-1) mg/dl GGT AST (15-37) U/L ALT (12-78) U/L Alkaline Phosphatase (45-117) U/L Lactate Dehydrogenase (87-241) U/L Troponin I (0-0.045) ng/ml Total Protein (6.4-8.2) gm/dl Albumin (3.4-5.0) gm/dl Globulin (2.5-4.0) gm/dl Albumin/Globulin Ratio (0.9-2) Vitamin B12 (211-911) pg/ml Folate (>5.38) ng/ml Procalcitonin 1.85 H (0-0.5) ng/ml TSH (0.300-4.500) uIu/ml Random Cortisol mcg/dl Urine Color Urine Appearance (Clear) Urine pH (4.5-7.5) Ur Specific [place] (1.000-1.030) Urine Protein (Negative) Urine Glucose (UA) (Negative) Urine Ketones (Negative) Urine Blood (Negative) Urine Nitrite (Negative) Urine Bilirubin (Negative) Urine Urobilinogen (Negative) Ur Leukocyte Esterase (Negative) Urine WBC (Auto) (0-5) /hpf Urine RBC (Auto) (0-4) /hpf U Hyaline Cast (Auto) (0-5) /lpf U Epithel Cells (Auto) (0-5) /lpf Urine Bacteria (Auto) (Negative) Nasal Screen MRSA (PCR) (Negative) Urine Opiates Screen (Neg) Ur Methadone, Qual (Neg) Urine Barbiturates (Neg) Ur Phencyclidine (PCP) (Neg) U Amphetamin/Meth Scrn (Neg) MDMA (Ecstasy) Screen (Neg) U Benzodiazepines Scrn (Neg) Ur Cocaine Metabolite (Neg) U Marijuana (THC) Screen (Neg) U Marijuana THC Carboxy Drug Screen Comment Ethyl Alcohol mg/dL (0-3) mg/dl COVID-19 Eval Order COVID-19 PCR (Negative) Nasopharyn COVID-19 PCR Hepatitis A IgM Ab Hep Bs Antigen (Neg) Hep B Core IgM Ab Hepatitis C Antibody (Neg) HIV (1&2) Ag & Ab Conf HIV 1&2 Ab/P24 Ag 4thGn (Neg) Influenza Type A (PCR) (Neg) Influenza Type B (PCR) (Neg) 01/15/20 01/15/2001/14/20 Range/Units 19:32 19:22 19:20 WBC (4.8-10.8) K/uL RBC (4.7-6.1) M/uL Hgb (14.0-18.0) g/dL Hct (42-52) % MCV (80-100) fL MCH (25-34) pg MCHC (32-36) g/dL RDW Std Deviation (36.4-46.3) fL RDW Coeff of Nathen (11.5-14.5) % Plt Count (130-400) K/uL MPV (7.4-10.4) fL Neutrophils % (Manual) % Lymphocytes % (Manual) % Monocytes % (Manual) % Neutrophils # (Manual) (1.4-6.5) K/uL Total Absolute Neuts (1.4-6.5) K/uL Lymphocytes # (Manual) (1.2-3.4) K/uL Total Abs Lymphocytes (1.2-3.4) K/uL Monocytes # (Manual) (0.11-0.59) K/uL Dohle Bodies Tear Drop Cells PT (9.0-12.0) Seconds INR (0.9-1.1) APTT (21.0-31.0) Seconds PTT Ratio Sodium 132 L (136-145) mmol/L Potassium 3.0 L (3.5-5.1) mmol/L Chloride 96 L (98-107) mmol/L Carbon Dioxide 25 (21-32) mmol/L Anion Gap 11.0 (3-11) BUN 17 (7-18) mg/dl Creatinine 0.98 (0.6-1.4) mg/dl Est Cr Clr Drug Dosing 74.6 ml/min Est GFR ( Amer) 103.8 Est GFR (Non-Af Amer) 89.5 BUN/Creatinine Ratio 17.2 (10-20) Glucose 94 (70-99) mg/dl POC Glucose (other) (70-99) mg/dl Lactate 2.2 H* (0.4-2.0) mmol/L Calcium 8.6 (8.5-10.1) mg/dl Phosphorus (2.5-4.9) mg/dl Magnesium 1.8 (1.8-2.4) mg/dl Iron 17 L (35-175) mcg/dl TIBC 148 L (250-450) mcg/dl Transferrin 125 L (200-360) mg/dl Ferritin 4677.1 H (8-388) ng/ml Total Bilirubin 1.3 H (0.2-1) mg/dl GGT AST 88 H (15-37) U/L ALT 39 (12-78) U/L Alkaline Phosphatase 232 H (45-117) U/L Lactate Dehydrogenase (87-241) U/L Troponin I 0.042 (0-0.045) ng/ml Total Protein 7.5 (6.4-8.2) gm/dl Albumin 2.6 L (3.4-5.0) gm/dl Globulin 4.9 H (2.5-4.0) gm/dl Albumin/Globulin Ratio 0.5 L (0.9-2) Vitamin B12 (211-911) pg/ml Folate (>5.38) ng/ml Procalcitonin (0-0.5) ng/ml TSH 0.504 (0.300-4.500) uIu/ml Random Cortisol mcg/dl Urine Color Urine Appearance (Clear) Urine pH (4.5-7.5) Ur Specific [place] (1.000-1.030) Urine Protein (Negative) Urine Glucose (UA) (Negative) Urine Ketones (Negative) Urine Blood (Negative) Urine Nitrite (Negative) Urine Bilirubin (Negative) Urine Urobilinogen (Negative) Ur Leukocyte Esterase (Negative) Urine WBC (Auto) (0-5) /hpf Urine RBC (Auto) (0-4) /hpf U Hyaline Cast (Auto) (0-5) /lpf U Epithel Cells (Auto) (0-5) /lpf Urine Bacteria (Auto) (Negative) Nasal Screen MRSA (PCR) (Negative) Urine Opiates Screen (Neg) Ur Methadone, Qual (Neg) Urine Barbiturates (Neg) Ur Phencyclidine (PCP) (Neg) U Amphetamin/Meth Scrn (Neg) MDMA (Ecstasy) Screen (Neg) U Benzodiazepines Scrn (Neg) Ur Cocaine Metabolite (Neg) U Marijuana (THC) Screen (Neg) U Marijuana THC Carboxy Drug Screen Comment Ethyl Alcohol mg/dL (0-3) mg/dl COVID-19 Eval Order Covid19 Done at [facility] COVID-19 PCR (Negative) Nasopharyn COVID-19 PCR Hepatitis A IgM Ab Hep Bs Antigen (Neg) Hep B Core IgM Ab Hepatitis C Antibody (Neg) HIV (1&2) Ag & Ab Conf HIV 1&2 Ab/P24 Ag 4thGn (Neg) Influenza Type A (PCR) (Neg) Influenza Type B (PCR) (Neg) 01/15/20 Range/Units 19:20 WBC (4.8-10.8) K/uL RBC (4.7-6.1) M/uL Hgb (14.0-18.0) g/dL Hct (42-52) % MCV (80-100) fL MCH (25-34) pg MCHC (32-36) g/dL RDW Std Deviation (36.4-46.3) fL RDW Coeff of Nathen (11.5-14.5) % Plt Count (130-400) K/uL MPV (7.4-10.4) fL Neutrophils % (Manual) % Lymphocytes % (Manual) % Monocytes % (Manual) % Neutrophils # (Manual) (1.4-6.5) K/uL Total Absolute Neuts (1.4-6.5) K/uL Lymphocytes # (Manual) (1.2-3.4) K/uL Total Abs Lymphocytes (1.2-3.4) K/uL Monocytes # (Manual) (0.11-0.59) K/uL Dohle Bodies Tear Drop Cells PT (9.0-12.0) Seconds INR (0.9-1.1) APTT (21.0-31.0) Seconds PTT Ratio Sodium (136-145) mmol/L Potassium (3.5-5.1) mmol/L Chloride (98-107) mmol/L Carbon Dioxide (21-32) mmol/L Anion Gap (3-11) BUN (7-18) mg/dl Creatinine (0.6-1.4) mg/dl Est Cr Clr Drug Dosing ml/min Est GFR ( Amer) Est GFR (Non-Af Amer) BUN/Creatinine Ratio (10-20) Glucose (70-99) mg/dl POC Glucose (other) (70-99) mg/dl Lactate (0.4-2.0) mmol/L Calcium (8.5-10.1) mg/dl Phosphorus (2.5-4.9) mg/dl Magnesium (1.8-2.4) mg/dl Iron (35-175) mcg/dl TIBC (250-450) mcg/dl Transferrin (200-360) mg/dl Ferritin (8-388) ng/ml Total Bilirubin (0.2-1) mg/dl GGT AST (15-37) U/L ALT (12-78) U/L Alkaline Phosphatase (45-117) U/L Lactate Dehydrogenase (87-241) U/L Troponin I (0-0.045) ng/ml Total Protein (6.4-8.2) gm/dl Albumin (3.4-5.0) gm/dl Globulin (2.5-4.0) gm/dl Albumin/Globulin Ratio (0.9-2) Vitamin B12 (211-911) pg/ml Folate (>5.38) ng/ml Procalcitonin (0-0.5) ng/ml TSH (0.300-4.500) uIu/ml Random Cortisol mcg/dl Urine Color Urine Appearance (Clear) Urine pH (4.5-7.5) Ur Specific [place] (1.000-1.030) Urine Protein (Negative) Urine Glucose (UA) (Negative) Urine Ketones (Negative) Urine Blood (Negative) Urine Nitrite (Negative) Urine Bilirubin (Negative) Urine Urobilinogen (Negative) Ur Leukocyte Esterase (Negative) Urine WBC (Auto) (0-5) /hpf Urine RBC (Auto) (0-4) /hpf U Hyaline Cast (Auto) (0-5) /lpf U Epithel Cells (Auto) (0-5) /lpf Urine Bacteria (Auto) (Negative) Nasal Screen MRSA (PCR) (Negative) Urine Opiates Screen (Neg) Ur Methadone, Qual (Neg) Urine Barbiturates (Neg) Ur Phencyclidine (PCP) (Neg) U Amphetamin/Meth Scrn (Neg) MDMA (Ecstasy) Screen (Neg) U Benzodiazepines Scrn (Neg) Ur Cocaine Metabolite (Neg) U Marijuana (THC) Screen (Neg) U Marijuana THC Carboxy Drug Screen Comment Ethyl Alcohol mg/dL (0-3) mg/dl COVID-19 Eval Order COVID-19 PCR NEGATIVE (Negative) Nasopharyn COVID-19 PCR Hepatitis A IgM Ab Hep Bs Antigen (Neg) Hep B Core IgM Ab Hepatitis C Antibody (Neg) HIV (1&2) Ag & Ab Conf HIV 1&2 Ab/P24 Ag 4thGn (Neg) Influenza Type A (PCR) Neg for Influ A (Neg) Influenza Type B (PCR) Neg for Influ B (Neg) Medications Administered Current Inpatient Medications Acetaminophen (Acetaminophen 650 Mg Supp) 650 mg AR Q4H PRN PRN Reason: Fever Stop: 02/15/20 02:01 Heparin Sodium (Porcine) (Heparin Sod 5,000 Unit/0.5 Ml Vial) 5,000 units SQ Q12 [facility] Stop: 02/15/20 08:59 Last Admin: 01/16/20 09:03 Dose: 5,000 units Documented by: Norepinephrine Bitartrate 8 mg (/ Dextrose) 508 mls @ 11.144 mls/hr IV .Q24H [facility]; Protocol Stop: 02/14/20 21:59 Last Titration: 01/16/20 07:02 Dose: 0.1 mcg/kg/min, 22.3 mls/hr Documented by: Azithromycin 500 mg/ Dextrose 255 mls @ 125 mls/hr IV Q24H [facility]; Protocol Stop: 01/23/20 19:59 Ertapenem 1,000 mg/ Sodium (Chloride) 60 mls @ 100 mls/hr IV Q24H [facility] Stop: 01/23/20 07:59 Last Infusion: 01/16/20 09:50 Dose: Infused Documented by: Thiamine HCl 100 mg/ Syringe 10 mls @ 2 [facility] [place] Stop: 02/15/20 10:59 Last Admin: 01/16/20 11:21 Dose: 2 mls/min Documented by: Folic Acid 1 mg/ Syringe 10 mls @ 5 mls[facility] [place] Stop: 02/15/20 10:59 Last Admin: 01/16/20 11:21 Dose: 5 mls/min Documented by: Dextrose/Sodium Chloride (D5w And 1/2nss) 1,000 mls @ 80 mls/hr IV .[id number] [facility] Stop: 02/15/20 10:29 Last Admin: 01/16/20 11:24 Dose: 80 mls/hr Documented by: Vancomycin HCl 1,000 mg/ (Sodium Chloride) 270 mls @ 125 mls/hr IV Q8H [facility]; Protocol Stop: 01/23/20 13:59 Last Admin: 01/16/20 14:01 Dose: 125 mls/hr Documented by: Miscellaneous (Icu Protocol For Hyperglycemia) 1 ea N/A PRN PRN; Protocol PRN Reason: Hyperglycemia Protocol Stop: 01/17/20 23:06 Miscellaneous Information (Vancomycin Consult Active) 1 ea N/A UD PRN PRN Reason: Consult Stop: 02/14/20 20:29 Resident Activity Tracking Resident Involvement: Resident Care Provided Care Provided: Adult Hospital Medicine (1) Anemia Anemia type: unspecified type Qualified Code(s): D64.9 - Anemia, unspecified (2) Leukopenia Leukopenia type: unspecified Qualified Code(s): D72.819 - Decreased white b lood cell count, unspecified (3) Pneumonia Laterality: right Lung location: lower lobe of lung Pneumonia type: due to unspecified organism Qualified Code(s): J18.9 - Pneumonia, unspecified organism
[2020-01-16 14:29] LABS: BUN Creatinine Ratio 22.6 (10-20); Calcium 7.8 mg/dl (8.5-10.1); Creatinine Clr Calc Pharmacy 139.1 ml/min; Est GFR (African American) 141.9; Est GFR (Non-African American) 122.4; Potassium 3.6 mmol/L (3.5-5.1)
[2020-01-16 14:30] LABS: Magnesium 2.2 mg/dl (1.8-2.4); Phosphorus 1.8 mg/dl (2.5-4.9)
[2020-01-16] MEDS ORDERED: POTASSIUM PHOS 3 MMOL/1 ML INFUSION IV STA (15:05)
[2020-01-16] MEDS ORDERED: POTASSIUM PHOSPHATE 30 MMOL in SODIUM CHLORIDE 0.9% 500 ML IV ONE (15:30)
--- NOTE | 2020-01-16 19:31 | Billing Data ---
Date of Service January 16, 2020 Coding Level of Care Code Critical Care 1st - mins
[2020-01-16] MEDS: AZITHROMYCIN 500 MG in DEXTROSE 5% 250 ML IV SCH (19:59)
[2020-01-16] MEDS: NOREPINEPHRINE BIT INJ 8 MG in DEXTROSE 5% 500 ML IV SCH (22:08)
[2020-01-17] MEDS: D5W AND 1/2NSS 1,000 ML IV SCH (00:15)
[2020-01-17] MEDS ORDERED: VANCOMYCIN TROUGH ONE (05:30)
[2020-01-17 05:33] LABS: Hematocrit (blood only) 25.9 % (42-52); Mean Corpuscular Hemoglobin 29.5 pg (25-34); Mean Corpuscular Hgb Conc 34.7 g/dL (32-36); Mean Corpuscular Volume 84.9 fL (80-100); Mean Platelet Volume 10.7 fL (7.4-10.4); Platelet Count 113 K/uL (130-400); RDW Coefficient of Variation 14.1 % (11.5-14.5); RDW Standard Deviation 44.3 fL (36.4-46.3); Red Blood Count 3.05 M/uL (4.7-6.1); White Blood Count 2.08 K/uL (4.8-10.8)
[2020-01-17 05:58] LABS: Alanine Aminotransferase 30 U/L (12-78); Albumin Level 1.8 gm/dl (3.4-5.0); Aspartate Aminotransferase 46 U/L (15-37); BUN Creatinine Ratio 39.6 (10-20); Blood Urea Nitrogen 15 mg/dl (7-18); Calcium 7.4 mg/dl (8.5-10.1); Carbon Dioxide 26 mmol/L (21-32); Chloride 118 mmol/L (98-107); Est GFR (African American) > 150.0; Glucose 163 mg/dl (70-99); Magnesium 2.2 mg/dl (1.8-2.4); Potassium 3.5 mmol/L (3.5-5.1); Sodium 149 mmol/L (136-145)
[2020-01-17 06:17] LABS: ALC (manual) 0.55 K/uL (1.2-3.4); ANC (manual) 1.12 K/uL (1.4-6.5); Lymphocytes # (manual) 0.55 K/uL (1.2-3.4); Lymphocytes % (manual) 26.5 %; Metamyelocytes # (manual) 0.13 K/uL (0-0); Metamyelocytes % (manual) 6.2 %; Monocytes # (manual) 0.26 K/uL (0.11-0.59); Monocytes % (manual) 12.4 %; Myelocytes # (manual) 0.02 K/uL (0-0); Myelocytes % (manual) 0.9 %; Neutrophils # (manual) 1.12 K/uL (1.4-6.5)
[2020-01-17 06:19] LABS: Albumin Globulin Ratio 0.5 (0.9-2); Alkaline Phosphatase 201 U/L (45-117); Bilirubin Direct 0.3 mg/dl (0-0.2); Bilirubin,Total 0.7 mg/dl (0.2-1); Globulin 3.8 gm/dl (2.5-4.0); Phosphorus 1.8 mg/dl (2.5-4.9); Total Protein 5.6 gm/dl (6.4-8.2)
[2020-01-17] MEDS ORDERED: POTASSIUM PHOS 3 MMOL/1 ML INFUSION IV STA (06:30)
[2020-01-17] MEDS ORDERED: POTASSIUM PHOSPHATE 21 MMOL in SODIUM CHLORIDE 0.9% 500 ML IV STA (06:33)
[2020-01-17] MEDS: VANCOMYCIN HCL 1,000 MG in SODIUM CHLORIDE 0.9% 250 ML IV SCH ×3 (06:33→21:27)
[2020-01-17] MEDS: ERTAPENEM SODIUM 1,000 MG in SODIUM CHLORIDE 0.9% 50 ML IV SCH (08:26)
[2020-01-17] MEDS: THIAMINE HCL 100 MG in SYRINGE 9 ML IV SCH (08:26)
[2020-01-17] MEDS: FOLIC ACID 1 MG in SYRINGE 9.8 ML IV SCH (08:26)
[2020-01-17] MEDS: HEPARIN SOD 5,000 UNIT/0.5 ML VIAL SQ SCH (08:27)
--- NOTE | 2020-01-17 09:16 | Critical Care Progress Note ---
Date of Service January 17, 2020 Assessment & Plan (1) Septic shock: Reason Critically Ill: 49-year-old male with pneumonia and septic shock requiring vasopressor support. Neuro - [facility] ICU: Negative Cardiac - Hypotension/shockoff pressors as of yesterday -Blood cultures remain negative Atrial flutterresolved Atrial fibrillation -Unknown time of onset, will work on chemical conversion - Continuous monitoring on telemetry -Because of need of possible cardioversion will start anticoagulation -Start amiodarone load with infusion for 16 hours and then proceed with 200 mg 3 times daily at least 1 week -Repeat EKG to evaluate QTC Respiratory - Pneumoniacurrently maintaining sats on 2 L nasal cannula, no respiratory distress -No prior history of pulmonary disease but does report smoking 3 to 4 cigarettes/day and infrequent marijuana use -Rapid PCR COVID-19 and influenza PCR negative, send out for COVID-19 test pending -Elevated lactate and pro Adalberto concerning for sepsis with likely pulmonary source, started on broad-spectrum antibiotics see below -Nebs PRN -Continuous monitoring on pulse ox -Send bio fire panel for possible viral etiologies -Fungitell sent, antibodies for Aspergillus: Occasional marijuana smoker places him at higher risk for fungal diseases -Start Bactrim DS for PJP -Start voriconazole -Pharmacy to dose both Bactrim and voriconazole GI - Clear diet advance as tolerated Transaminitisconsider shock liver -Given patient's history of drug abuse, hepatitis C negative -We will continue to trend LFTs and consider imaging if continued to worsen RENAL/LYTES - Creatinine within normal limits Monitor electrolytes routine BMPs and replete as indicated - Strict I's and O's ENDO - No history of diabetes or thyroid disease, TSH within normal limits ICU hyperglycemic protocol HEME - Normocytic anemiaappears to be chronic based off prior CBCs -could be secondary to chronic malnutrition/drug abuse, no signs of bleeding -Hemoglobin currently within acceptable levels at 9, no indication for transfusion at this time -Anemia work-up pending -Type and screen ordered as patient is going on anticoagulation Leukopeniaunsure etiology at this time, bone marrow suppression in the setting of drug abuse? -HIV and hep C pending, UDS pending -We will continue to monitor CBC for now, consider heme-onc consultation? ID - Sepsispresents with hypotension and elevated lactate and procalcitonin -UA unremarkable -Blood cultures pending -Rapid COVID and influenza PCR negative, COVID-19 send out -Continue airborne precautions for now -Continue Vanco, azithromycin, discontinue ertapenem for Primaxin and adding Bactrim and voriconazole Diarrhea -No repeated occurrences, if he continues would need to check Giardia and Cryptosporidium --Prophylaxis VTE: Heparin, ggt started GI: Protonix Lines: Right IJ Diet: Clear liquids, progress as tolerated (2) Hypotension: (3) Pneumonia: (4) Hypoxia: (5) Admitted to intensive care unit: (6) Transaminitis: (7) Leukopenia: (8) Anemia: Admission and Anticipated Discharge Date Admission Date: January 15, 2020 Subjective Patient was evaluated from window secondary to COVID pandemic: Minimizing staff exposures Review of Systems Review of Systems: Other (Not obtained secondary to COVID pandemic) Physical Exam Physical Exam: Evaluated from window: Moves all 4 extremities. Results & Data Results & Data ([facility]) Vital Signs (Past 12 Hours) Vital Signs Temp Pulse Resp BP Pulse Ox 01/17/20 05:44 36.3 C L 130 H 19 103/53 L 76 L 01/17/20 05:14 36.2 C L 110 H 12 95/69 L 100 01/17/20 04:44 36.2 C L 112 H 10 L 85/61 L 98 01/17/20 04:14 36.3 C L 119 H 14 89/63 L 100 01/17/20 03:44 36.3 C L 104 H 10 L 84/59 L 100 01/17/20 03:14 36.2 C L 113 H 11 L 89/61 L 100 01/17/20 02:44 36.2 C L 106 H 14 92/44 L 100 01/17/20 02:12 36.1 C L 114 H 14 80/58 L 100 01/17/20 01:50 36.1 C L 116 H 12 85/50 L 99 01/17/20 01:28 36.1 C L 127 H 20 85/50 L 97 01/17/20 00:57 36.1 C L 122 H 14 89/64 L 98 01/17/20 00:42 36.1 C L 115 H 17 84/54 L 98 01/17/20 00:26 36.1 C L 110 H 13 87/58 L 99 01/17/20 00:11 36.2 C L 103 H 14 83/61 L 100 01/16/20 23:59 122 H 01/16/20 23:57 36.3 C L 111 H 14 78/48 L 100 01/16/20 23:41 36.3 C L 98 H 13 91/63 L 100 01/16/20 23:26 36.3 C L 103 H 13 85/65 L 100 01/16/20 23:11 36.2 C L 93 H 14 86/55 L 100 01/16/20 22:42 36.2 C L 95 H 14 90/65 L 01/16/20 22:27 36.1 C L 102 H 14 86/62 L 100 01/16/20 22:11 36.2 C L 110 H 15 86/58 L 100 01/16/20 21:56 36.2 C L 106 H 19 84/63 L 100 01/16/20 21:41 36.3 C L 99 H 14 83/59 L 100 01/16/20 21:26 36.4 C L 101 H 15 80/65 L 100 Coding Level of Care Code Critical Care 1st 30-74 mins Diagnoses Septic shock A41.9; R65.21 Hypotension I95.9 Hypotension type: unspecified hypotension type Pneumonia J18.9 Laterality: right Lung location: lower lobe of lung Pneumonia type: due to unspecified organism Hypoxia R09.02 Admitted to intensive care unit Z78.9 Transaminitis R74.0 Leukopenia D72.819 Leukopenia type: unspecified Anemia D64.9 Anemia type: unspecified type Time Spent (min) 65 Comment I have personally spent 40 minutes of critical care time in the direct management of this patient. This is a life/limb threatening event. This includes time spent evaluating patient, direct bedside care, chart review, placing orders, interpretation of diagnostic studies, discussion with consultants, patient, and/or family members regarding treatment decisions, as well as other required patient management activities. This time is exclusive of all separately billable procedures, and teaching time and separate from and in addition to any other critical care service time. (1) Anemia Anemia type: unspecified type Qualified Code(s): D64.9 - Anemia, unspecified (2) Leukopenia Leukopenia type: unspecified Qualified Code(s): D72.819 - Decreased white blood cell count, unspecified (3) Hypotension Hypotension type: unspecified hypotension type Qualified Code(s): I95.9 - Hypotension, unspecified (4) Pneumonia Laterality: right Lung location: lower lobe of lung Pneumonia type: due to unspecified organism Qualified Code(s): J18.9 - Pneumonia, unspecified organism
[2020-01-17] MEDS ORDERED: Heparin IV Low Dose WITH Bolus IV SCH (10:03)
[2020-01-17 11:13] LABS: Reticulocyte % < 0.5 % (0.5-2.0); Reticulocytes # < 0.02 10^6/uL (0.02-0.10)
[2020-01-17] MEDS ORDERED: HEPARIN SODIUM/DEXTROSE 25,000 UNITS/500 ML BAG IV SCH (11:30)
[2020-01-17] MEDS ORDERED: 0.2 MICRON FILTER SET 1 EA IV ONE (11:30)
[2020-01-17] MEDS ORDERED: HEPARIN IV BOLUS 4,000 UNITS in SYRINGE 0 ML IV ONE ×2 (11:30→21:00)
[2020-01-17] MEDS ORDERED: AMIODARONE / D5W 150 MG/100 ML BAG IV ONE (11:30)
[2020-01-17] MEDS ORDERED: AMIODARONE / D5W 360 MG/200 ML BAG IV SCH (11:40)
[2020-01-17] MEDS: VORICONAZOLE IV SCH ×2 (12:28→23:30)
[2020-01-17] MEDS: SODIUM CHLORIDE 0.9% IV SCH ×2 (12:28→23:30)
--- NOTE | 2020-01-17 12:45 | Pharmacy Report ---
Pharmacy Abx Dose Short Note - Date of Service January 17, 2020 - Assessment & Plan Assessment * 49 year old M receiving VANCOMYCIN + PRIMAXIN + AZITHROMYCIN + SMX/TMP + VORICONAZOLE for treatment of septic shock secondary to CAP. * Patient does have risk factors for drug resistance: neutropenia, possible dx of HIV, h/o substance abuse * Day # 3 of VANCOMYCIN + AZITHROMYCIN. ERTAPENEM (started 01/15) changed to PRIMAXIN today to add pseudomonas coverage. VORICONAZOLE + SMX/TMP added tod ay. * CT chest read as: RLL consolidation consistent w/ pneumonia. Small cavitation noted. * No growth in BLCX's to date. Proc 2.01. WBC 2.1. Neut 1.12. * Patient did require norepi for a period of time, however this has since been weaned off. MAPs in 60-70s this AM. UOP > 0.5mL/kg/hr. SCr improving. Plan Vancomycin: * Trough level of 12.4 mcg/mL is subtherapeutic, however this level was obtained prior to achieving steady-state and will likely climb some w/ repeat dosing. Prior doses hung on time. Level was drawn at the appropriate time. * Continue dose of 1000 mg (~17mg/kg) IV every 8 hours for time being, however w/ recheck a trough level at steady state (tomorrow AM) to confirm targets are met. Primaxin: * eCrCl > 90, 500mg IV Q 6 hrs indicated SMX/TMP: * eCrCl > 30, ~5-6mg/kg TMP Q8hrs indicated for treatment of possible PCP pna: 304mg TMP Q 8 hrs. Voriconazole: * eCrCl > 50, QTc 490 (repeat EKG has been ordered): induction dose for possible invasive aspergillosis: 6mg/kg IV Q 12 hrs (360mg) Q 12 hrs, then 4mg/kg IV Q 12 hrs (240mg) maintenance dose. Pharmacy will continue to follow and will adjust dose/frequency as necessary. Thank you.
[2020-01-17 13:52] LABS: Adenovirus PCR Not Detected (NotDetected); Bordetella parapertussis PCR Not Detected (NotDetected); Bordetella pertussis PCR Not Detected (NotDetected); Chlamydia pneumoniae PCR Not Detected (NotDetected); Coronavirus 229E PCR Not Detected (NotDetected); Coronavirus CoV-2 (COVID19)PCR Not Detected (NotDetected); Coronavirus HKU1 PCR Not Detected (NotDetected); Coronavirus NL63 PCR Not Detected (NotDetected); Coronavirus OC43PCR Not Detected (NotDetected); Human Metapneumovirus PCR Not Detected (NotDetected); Influenza A PCR Not Detected (NotDetected); Influenza B PCR Not Detected (NotDetected); Mycoplasma pneumoniae PCR Not Detected (NotDetected); Parainfluenza Virus 1 PCR Not Detected (NotDetected); Parainfluenza Virus 2 PCR Not Detected (NotDetected); Parainfluenza Virus 3 PCR Not Detected (NotDetected); Parainfluenza Virus 4 PCR Not Detected (NotDetected); Respiratory Syncytial VirusPCR Not Detected (NotDetected); Rhinovirus/Enterovirus PCR Not Detected (NotDetected)
[2020-01-17] MEDS: IMIPENEM/CILASTATIN SODIUM 500 MG in DEXTROSE 5% 100 ML IV SCH ×3 (13:53→23:30)
[2020-01-17] MEDS: SULFA/TRIMETH 80/16MG/ML 304 MG in DEXTROSE 5% 500 ML IV SCH ×2 (13:53→21:26)
[2020-01-17] MEDS ORDERED: POTASSIUM PHOSPHATE 18 MMOL in SODIUM CHLORIDE 0.9% 500 ML IV ONE (16:00)
--- NOTE | 2020-01-17 17:33 | Hospitalist Progress Note ---
Date of Service January 17, 2020 Assessment & Plan (1) Dehydration: Mir Salgado is a 49-year-old man with a past medical history of sepsis after a dental procedure two years ago who presented with sepsis from an apparent bacterial pneumonia admitted to the ICU, BP low requiring pressors initially. Sepsis Clinical picture and history was consistent with pneumonia, lung exam and chest x-ray demonstrated dense lobar consolidation, COVID screen was negative, however patient reports history of his roommate being sick and never tested for COVID, send out pending. On admission procalcitonin was positive, lactate negative, troponin mildly elevated, likely demand ischemia, ANC was decreased to 0.8, and he was hypotensive despite 3 L bolus hence and truck rental clerk consult was placed and the patient was transferred the ICU for further treatment and pressor support. Blood cultures were obtained, and the patient was administered cefepime, Vanco, and azithromycin he improved overnight and is currently in the ICU oxygenating 100% on 2 L. -Care per ICU -Continue Vanco, azithromycin, discontinue ertapenem for Primaxin and adding Bactrim and voriconazole -COVID pending Pneumonia Patient has a dense lobar consolidation consistent with a bacterial pneumonia - on 2L - continue Abx. as above Neutropenia and Anemia Patient has been neutropenic for some time, based on his transient living situation and lack of consistent follow up has never had a workup Differential broad including chronic infection, Cancer, B12 folate deficiency amongst others. An anemia work-up was ordered along with B12, iron studies, chest CT, and hematology was consulted. For now continue with neutropenic precautions. -HIV prelim positive -Pathology consulted appreciate recommendations -Neutropenic precautions -blood culture pending Atrial fibrillation -Unknown time of onset, will work on chemical conversion -Continuous monitoring on telemetry -Because of need of possible cardioversion will start anticoagulation -Start amiodarone load with infusion for 16 hours and then proceed with 200 mg 3 times daily at least 1 week -EKG to evaluate QTC Hypokalemia On admission, repleted adequately, potassium goal for -Replete per ICU electrolyte protocol FENa: clears progress as tolerated GI: protonix Code Status: Full code DVT PPX: Heparin PT/OT: Not indicated at present Dispo: ICU pending off pressor support and clinical improvement (2) Anemia: (3) Leukopenia: (4) Transaminitis: (5) Admitted to intensive care unit: (6) Hypoxia: (7) Pneumonia: (8) Septic shock: (9) Hypophosphatemia: Admission and Anticipated Discharge Date Admission Date: January 15, 2020 Supervising Physician Co-Signing Physician Notes case d/w dr godoy and ICU. due to PUI status, room not entered as ICU managing care. pneumonia - seems concerning for post viral secondary overgrowth. certainly sx would be consistent with having had covid prior and then getting secondary overgrowth. HIV (+) broadens ddx. continue supportive care otherwise as above Subjective Patient's case reviewed and care per ICU team. BP low with a MAP around 65, off pressors this morning. Will continue to follow and take over care when medically stable for discharge from ICU. Review of Systems Review of Systems: Other Physical Exam Physical Exam: Patient care per ICU team. Patient no seen due to pending COVID testing. Results & Data Results & Data ([facility]) Vital Signs (Past 12 Hours) Vital Signs Temp Pulse Resp BP Pulse Ox 01/17/20 05:44 36.3 C L 130 H 19 103/53 L 76 L CBC Results Results Complete Blood Count Results: RBC 3.05 M/uL (4.7-6.1) L 01/17/20 WBC 2.08 K/uL (4.8-10.8) L 01/17/20 Hgb 9.0 g/dL (14.0-18.0) L 01/17/20 Hct 25.9 % (42-52) L 01/17/20 Plt Count 113 K/uL (130-400) L 01/17/20 Chemistry (BMP) Results BMP Results: Sodium 149 mmol/L (136-145) H 01/17/20 Potassium 3.5 mmol/L (3.5-5.1) 01/17/20 Chloride 118 mmol/L (98-107) H 01/17/20 BUN 15 mg/dl (7-18) 01/17/20 Creatinine 0.37 mg/dl (0.6-1.4) L 01/17/20 Glucose 163 mg/dl (70-99) H 01/17/20 Resident Activity Tracking Resident Involvement: Resident Care Provided Care Provided: Adult Hospital Medicine (1) Anemia Anemia type: unspecified type Qualified Code(s): D64.9 - Anemia, unspecified (2) Leukopenia Leukopenia type: unspecified Qualified Code(s): D72.819 - Decreased white blood cell count, unspecified (3) Pneumonia Laterality: right Lung location: lower lobe of lung Pneumonia type: due to unspecified organism Qualified Code(s): J18.9 - Pneumonia, unspecified organism
[2020-01-17] MEDS: AMIODARONE / D5W 360 MG/200 ML BAG IV SCH (18:17)
--- NOTE | 2020-01-17 18:27 | Billing Data ---
Date of Service January 17, 2020 Coding Level of Care Code 89439 Subseq Hosp Care Lvl 1
[2020-01-17] MEDS: AZITHROMYCIN 500 MG in DEXTROSE 5% 250 ML IV SCH (19:39)
[2020-01-17 20:05] LABS: Partial Thromboplastin Ratio 1.2; Partial Thromboplastin Time 33.3 Seconds (21.0-31.0)
[2020-01-18 01:45] LABS: Hematocrit (blood only) 21.6 % (42-52); Hemoglobin 7.6 g/dL (14.0-18.0); Mean Corpuscular Hemoglobin 29.5 pg (25-34); Mean Corpuscular Hgb Conc 35.2 g/dL (32-36); Mean Corpuscular Volume 83.7 fL (80-100); Mean Platelet Volume 11.6 fL (7.4-10.4); Platelet Count 135 K/uL (130-400); RDW Coefficient of Variation 14.3 % (11.5-14.5); RDW Standard Deviation 44.7 fL (36.4-46.3); Red Blood Count 2.58 M/uL (4.7-6.1); White Blood Count 1.64 K/uL (4.8-10.8)
[2020-01-18 01:54] LABS: Partial Thromboplastin Ratio 1.6; Partial Thromboplastin Time 44.2 Seconds (21.0-31.0)
[2020-01-18 02:07] LABS: Dohle Bodies 1+; Eosinophils # (auto) 0.01 K/uL (0-0.5); Eosinophils % (auto) 0.6 %; Giant Platelets 1+; Immature Granulocytes # (auto) 0.04 K/uL (0.00-0.02); Immature Granulocytes % (auto) 2.4 %; Lymphocytes # (auto) 0.45 K/uL (1.2-3.4); Lymphocytes % (auto) 27.4 %; Monocytes # (auto) 0.17 K/uL (0.11-0.59); Monocytes % (auto) 10.4 %; Neutrophils # (auto) 0.97 K/uL (1.4-6.5); Neutrophils % (auto) 59.2 %
[2020-01-18 02:18] LABS: Alanine Aminotransferase 26 U/L (12-78); Albumin Globulin Ratio 0.5 (0.9-2); Albumin Level 1.7 gm/dl (3.4-5.0); Alkaline Phosphatase 229 U/L (45-117); Aspartate Aminotransferase 32 U/L (15-37); BUN Creatinine Ratio 27.9 (10-20); Bilirubin,Total 0.6 mg/dl (0.2-1); Blood Urea Nitrogen 12 mg/dl (7-18); Calcium 6.8 mg/dl (8.5-10.1); Carbon Dioxide 24 mmol/L (21-32); Chloride 113 mmol/L (98-107); Creatinine Clr Calc Pharmacy 166.9 ml/min; Est GFR (African American) > 150.0; Est GFR (Non-African American) 131.9; Globulin 3.5 gm/dl (2.5-4.0); Glucose 104 mg/dl (70-99); Magnesium 1.9 mg/dl (1.8-2.4); Phosphorus 2.4 mg/dl (2.5-4.9); Potassium 2.9 mmol/L (3.5-5.1); Sodium 144 mmol/L (136-145); Total Protein 5.2 gm/dl (6.4-8.2)
[2020-01-18] MEDS ORDERED: HEPARIN IV BOLUS 2,000 UNITS in SYRINGE 0 ML IV ONE (02:29)
[2020-01-18] MEDS ORDERED: MAGNESIUM SULFATE / D5W 1 GM/100 ML BAG IV ONE (03:05)
[2020-01-18] MEDS ORDERED: POTASSIUM CHLORIDE 20 MEQ/15 ML UDC PO STA (03:05)
[2020-01-18] MEDS: ALBUMIN 5% 250 ML IV SCH ×2 (03:12→03:38)
[2020-01-18] MEDS: POTASSIUM CHLORIDE / WTR 20 MEQ/100 ML PLCT IV SCH ×2 (03:15→04:55)
[2020-01-18 04:32] LABS: Hepatitis A Antibody IgM NON-REACTIVE (NON-REACTIVE); Hepatitis B Core Antibody IgM NON-REACTIVE (NON-REACTIVE)
[2020-01-18] MEDS ORDERED: HYDROCORTISONE SOD 100 MG in SYRINGE 0 ML IV STA (04:47)
[2020-01-18] MEDS: AMIODARONE / D5W 360 MG/200 ML BAG IV SCH (04:55)
[2020-01-18] MEDS: IMIPENEM/CILASTATIN SODIUM 500 MG in DEXTROSE 5% 100 ML IV SCH ×3 (04:56→16:57)
[2020-01-18] MEDS: SULFA/TRIMETH 80/16MG/ML 304 MG in DEXTROSE 5% 500 ML IV SCH (05:06)
[2020-01-18] MEDS ORDERED: VANCOMYCIN TROUGH ONE (05:30)
[2020-01-18] MEDS: VANCOMYCIN HCL 1,000 MG in SODIUM CHLORIDE 0.9% 250 ML IV SCH (06:47)
[2020-01-18] MEDS: FOLIC ACID 1 MG in SYRINGE 9.8 ML IV SCH (08:34)
[2020-01-18] MEDS: NOREPINEPHRINE BIT INJ 8 MG in DEXTROSE 5% 500 ML IV SCH (08:34)
[2020-01-18] MEDS: HYDROCORTISONE SOD 50 MG in SYRINGE 0 ML IV SCH ×3 (08:34→20:10)
[2020-01-18] MEDS: THIAMINE HCL 100 MG in SYRINGE 9 ML IV SCH (08:34)
[2020-01-18 08:46] LABS: Ferritin 4345.9 ng/ml (8-388)
[2020-01-18] MEDS ORDERED: CARBOHYDRATES FOR HYPOGLYCEMIA PO PRN (10:45)
[2020-01-18] MEDS ORDERED: GLUCAGON FOR INJ 1 MG VIAL IM PRN (10:45)
[2020-01-18] MEDS ORDERED: GLUCOSE 40% GEL 15 GM TUBE PO PRN (10:45)
[2020-01-18] MEDS ORDERED: GLUCOSE 10 TABS/TUBE PO PRN (10:45)
[2020-01-18] MEDS ORDERED: DEXTROSE 50% 50 ML SYRINGE IV PRN (10:45)
[2020-01-18] MEDS ORDERED: POTASSIUM PHOSPHATE 30 MMOL in SODIUM CHLORIDE 0.9% 500 ML IV ONE (11:00)
--- NOTE | 2020-01-18 11:14 | Hospitalist Progress Note ---
Date of Service January 18, 2020 Assessment & Plan (1) Dehydration: Mir Salgado is a 49-year-old man with a past medical history of sepsis after a dental procedure two years ago who presented with sepsis from an apparent bacterial pneumonia admitted to the ICU, BP low requiring pressors initially. Sepsis Clinical picture and history was consistent with pneumonia, lung exam and chest x-ray demonstrated dense lobar consolidation, COVID screen was negative, however patient reports history of his roommate being sick and never tested for COVID, send out pending. On admission procalcitonin was positive, lactate negative, troponin mildly elevated, likely demand ischemia, ANC was decreased to 0.8, and he was hypotensive despite 3 L bolus hence and principal security architect consult was placed and the patient was transferred the ICU for further treatment and pressor support. Blood cultures were obtained, and the patient was administered cefepime, Vanco, and azithromycin he improved overnight and is currently in the ICU oxygenating 100% on 2 L. -Care per ICU -Continue Vanco, azithromycin, discontinue ertapenem for Primaxin and adding Bactrim and voriconazole for now, could consider deescalation based on CD4 counts -COVID negative Pneumonia Patient has a dense lobar consolidation consistent with a bacterial pneumonia - on 2L - continue Abx. as above Neutropenia and Anemia Patient has been neutropenic for some time, based on his transient living situation and lack of consistent follow up has never had a workup Differential broad including chronic infection, Cancer, B12 folate deficiency amongst others. An anemia work-up was ordered along with B12, iron studies, chest CT, and hematology was consulted. For now continue with neutropenic precautions. -HIV prelim positive -pending: CD4, RNA copies, TB -COVID negative -Pathology consulted appreciate recommendations -Neutropenic precautions -blood culture pending Atrial fibrillation -Unknown time of onset -Continuous monitoring on telemetry -Because of need of possible cardioversion will start anticoagulation -Start amiodarone load with infusion for 16 hours and then proceed with 200 mg 3 times daily at least 1 week -EKG to evaluate QTC Hypokalemia On admission, repleted adequately -Replete per ICU electrolyte protocol FENa: clears progress as tolerated GI: protonix Code Status: Full code DVT PPX: Heparin PT/OT: Not indicated at present Dispo: ICU pending off pressor support and clinical improvement Admission and Anticipated Discharge Date Admission Date: January 15, 2020 Supervising Physician Co-Signing Physician Notes case d/w dr godoy and TRIMMER MACHINE. due to PUI status, room not entered as ICU managing care. pneumonia - seems concerning for post viral secondary overgrowth. certainly sx would be consistent with having had covid prior and then getting secondary overgrowth. HIV (+) broadens ddx. continue supportive care. ID involvement appreciated. otherwise as above Subjective Patient's case reviewed and care per ICU team. BP low with a MAP around 65, off pressors this morning. Will continue to follow and take over care when medically stable for discharge from ICU. Physical Exam Physical Exam: Patient care per ICU team. Patient not seen due to airborne precautions. Results & Data Results & Data ([facility]) Vital Signs (Past 12 Hours) Vital Signs Temp Pulse Resp BP Pulse Ox 01/18/20 09:00 36.5 C 75 14 96 01/18/20 08:45 36.5 C 74 15 83/56 L 94 01/18/20 08:00 36.6 C 74 15 01/18/20 07:45 36.6 C 74 16 81/55 L 01/18/20 07:00 36.6 C 77 17 93 01/18/20 06:46 36.5 C 79 15 96 01/18/20 06:45 36.7 C 80 18 85/57 L 95 01/17/20 23:59 36.2 C L 90 13 85/53 L 96 01/17/20 23:45 36.3 C L 99 H 14 84/61 L 97 CBC Results Results Complete Blood Count Results: RBC 2.39 M/uL (4.7-6.1) L 01/18/20 WBC 1.36 K/uL (4.8-10.8) L 01/18/20 Hgb 7.2 g/dL (14.0-18.0) L 01/18/20 Hct 20.1 % (42-52) L* 01/18/20 Plt Count 129 K/uL (130-400) L 01/18/20 Chemistry (BMP) Results BMP Results: Sodium 143 mmol/L (136-145) 01/18/20 Potassium 3.9 mmol/L (3.5-5.1) 01/18/20 Chloride 113 mmol/L (98-107) H 01/18/20 BUN 11 mg/dl (7-18) 01/18/20 Creatinine 0.50 mg/dl (0.6-1.4) L 01/18/20 Glucose 112 mg/dl (70-99) H 01/18/20 Resident Activity Tracking Resident Involvement: Resident Care Provided Care Provided: [facility]
[2020-01-18 11:33] LABS: Hematocrit (blood only) 20.1 % (42-52); Hemoglobin 7.2 g/dL (14.0-18.0); Mean Corpuscular Hemoglobin 30.1 pg (25-34); Mean Corpuscular Hgb Conc 35.8 g/dL (32-36); Mean Corpuscular Volume 84.1 fL (80-100); Mean Platelet Volume 11.4 fL (7.4-10.4); Platelet Count 129 K/uL (130-400); RDW Coefficient of Variation 14.3 % (11.5-14.5); RDW Standard Deviation 44.4 fL (36.4-46.3); Red Blood Count 2.39 M/uL (4.7-6.1); White Blood Count 1.36 K/uL (4.8-10.8)
[2020-01-18 11:51] LABS: BUN Creatinine Ratio 22.7 (10-20); Calcium 7.5 mg/dl (8.5-10.1); Creatinine Clr Calc Pharmacy 150.3 ml/min; Est GFR (African American) 146.5; Est GFR (Non-African American) 126.4; Potassium 3.9 mmol/L (3.5-5.1)
[2020-01-18] MEDS ORDERED: SODIUM CHLORIDE 0.9% IV SCH ×2 (12:00)
[2020-01-18] MEDS ORDERED: VORICONAZOLE IV SCH ×2 (12:00)
[2020-01-18 12:04] LABS: Immature Granulocytes # (auto) 0.01 K/uL (0.00-0.02); Immature Granulocytes % (auto) 0.7 %; Lymphocytes # (auto) 0.32 K/uL (1.2-3.4); Lymphocytes % (auto) 23.5 %; Monocytes # (auto) 0.08 K/uL (0.11-0.59); Monocytes % (auto) 5.9 %; Neutrophils # (auto) 0.95 K/uL (1.4-6.5); Neutrophils % (auto) 69.9 %
[2020-01-18] MEDS: INSULIN ASPART 100 UNITS/ML 3 ML PEN SC SCH ×3 (12:06→20:28)
[2020-01-18 12:08] LABS: Dohle Bodies 1+; Giant Platelets 1+
--- NOTE | 2020-01-18 13:06 | Critical Care Progress Note ---
Date of Service January 18, 2020 Assessment & Plan (1) Septic shock: Reason Critically Ill: 49-year-old male with pneumonia and septic shock requiring vasopressor support now off pressors. Likely HIV with possible AIDS. Neuro - [facility] ICU: Negative Cardiac - Hypotension/shockrepeat cortisol level was checked and low at 4.4. Stress dose steroids started. He is mentating well and has good urine output. Atrial fluttercontinue amiodarone p.o. IV amiodarone stopped. No anticoagulation at this time given his significant anemia. No signs of bleeding. Chads Vasc score is very low. Cardiology consulted. Echo with an EF of 50 to 55%. Normal RV function Respiratory - Pneumonia Patient with right lower lobe pneumonia. Likely aspiration pneumonia with possible necrotizing component given the cavitary lesion. Patient will need a bronchoscopy once second COVID PCR comes back. I suspect it would likely be negative. I have a very low suspicion for PJP and/or aspergillus given the appearance on the CT chest. Voriconazole and Bactrim were discontinued. Fungitell is pending. This could be falsely elevated as the patient was on numerous antibiotics. GI - N.p.o. No issues currently. Transaminitismild, likely secondary to hypotension -Given patient's history of drug abuse, hepatitis C negative -We will continue to trend LFTs and consider imaging if continued to worsen RENAL/LYTES - Creatinine within normal limits Monitor electrolytes routine BMPs and replete as indicated - Strict I's and O's ENDO - No history of diabetes or thyroid disease, TSH within normal limits ICU hyperglycemic protocol HEME - Patient continues to have significant anemia. Likely hemodilution all and anemia of chronic disease. Peripheral smear pending. Holding anticoagulation at this time. I checked a ferritin level and a triglyceride level. Triglyceride level is within normal limits. Ferritin level has stabilized. Unlikely to be HLH. May need a bone marrow biopsy and/or heme-onc consult as an outpatient if anemia does not improve. ID - Continue imipenem and azithromycin. Patient likely is severely immunocompromised. CD4 count is pending. Confirmatory HIV testing is pending as well. Appreciate infectious disease consult from [employer]. Will likely need a bronchoscopy to isolate a culture. VTE: Holding chemical DVT prophylaxis GI: Protonix Lines: Right IJ I have personally spent 57 minutes of critical care time in the direct managemen t of this patient. This is a life/limb threatening event. This includes time spent evaluating patient, direct bedside care, chart review, placing orders, interpretation of diagnostic studies, discussion with consultants, patient, and family members, as well as other required patient management activities. This time is exclusive of all separately billable procedures, and teaching time and separate from and in addition to any other critical care service time. Thank you for allowing us to participate in the care of this patient. (2) Hypotension: (3) Pneumonia: (4) Hypoxia: (5) Admitted to intensive care unit: (6) Transaminitis: (7) Leukopenia: (8) Anemia: Admission and Anticipated Discharge Date Admission Date: January 15, 2020 Subjective He notes generalized body aches. He is overall doing better than he was yesterday. Has some mild shortness of breath. Denies any chest pain. No nausea or vomiting. Minimal bowel movements. Review of Systems Review of Systems: All systems reviewed & are unremarkable except as noted in HPI & below Physical Exam Physical Exam: Constitutional: No acute distress, frail-appearing HEENT: EOMI, PERRLA Respiratory system: Decreased air entry bilaterally, positive right lower lobe crackles, no wheeze, no rhonchi CVS: S1-S2 positive, no murmurs or gallops, tachycardia Abdomen: Soft, nontender, nondistended, positive bowel sounds x4, periumbilical tattoo Extremities: +2 pulses bilaterally radialis/ dorsalis pedis, no cyanosis, no edema Neuro: Awake alert oriented x3 Psych: Normal mood and affect G/U: Positive Vidal Skin: no rashes, warm and dry Lymphatic: no cervical or axillary lymphadenopathy Results & Data Results & Data ([facility]) Vital Signs (Past 12 Hours) Vital Signs Temp Pulse Resp BP Pulse Ox 01/18/20 09:00 97.7 F 75 14 96 01/18/20 08:45 97.7 F 74 15 83/56 L 94 01/18/20 08:00 97.9 F 74 15 01/18/20 07:45 97.9 F 74 16 81/55 L 01/18/20 07:00 97.9 F 77 17 93 01/18/20 06:46 97.7 F 79 15 96 01/18/20 06:45 98.1 F 80 18 85/57 L 95 I reviewed vital signs, labs and imaging Coding Level of Care Code Critical Care 1st 30-74 mins Diagnoses Septic shock A41.9; R65.21 Hypotension I95.9 Hypotension type: unspecified hypotension type Pneumonia J18.9 Laterality: right Lung location: lower lobe of lung Pneumonia type: due to unspecified organism Hypoxia R09.02 Admitted to intensive care unit Z78.9 Transaminitis R74.0 Leukopenia D72.819 Leukopenia type: unspecified Anemia D64.9 Anemia type: unspecified type Time Spent (min) 57 (1) Anemia Anemia type: unspecified type Qualified Code(s): D64.9 - Anemia, unspecified (2) Leukopenia Leukopenia type: unspecified Qualified Code(s): D72.819 - Decreased white blood cell count, unspecified (3) Hypotension Hypotension type: unspecified hypotension type Qualified Code(s): I95.9 - Hypotension, unspecified (4) Pneumonia Laterality: right Lung location: lower lobe of lung Pneumonia type: due to unspecified organism Qualified Code(s): J18.9 - Pneumonia, unspecified organism
[2020-01-18] MEDS: AMIODARONE 200 MG TAB PO SCH ×2 (13:16→20:11)
[2020-01-18] MEDS ORDERED: VANCOMYCIN HCL 1,250 MG in SODIUM CHLORIDE 0.9% 250 ML IV SCH (14:00)
--- NOTE | 2020-01-18 14:54 | Cardiology Consultation ---
Date of Consultation January 18, 2020 Assessment & Plan (1) Atrial dysrhythmia: -has demonstrated both atrial fibrillation and flutter. -suspect his dysrhythmia related to his poor clinical status and intravenous pressors. -has converted to sinus rhythm on amiodarone. -follow QTc interval. -echocardiogram notes normal left ventricular systolic function without wall motion abnormalities. History of Present Illness Attending Physician: Sal Heard DO History of Present Illness Mr. Salgado is a 49-year-old male admitted on January 15 with sepsis syndrome from pneumonia. The patient was significantly hypotensive and required intravenous pressors in the ICU. The patient was in atrial flutter with a rapid ventricular response at the time of presentation. This consultation was ordered to assist in his management. The patient was not interviewed or examined today as his COVID-19 test is pending. Poorly and patient was feeling ill for approximately 1 month. He was experiencing fever, chills, shortness of breath, and had poor oral intake. On presentation here, he was febrile, hypotensive, and tachycardic. He was in atrial flutter with a rapid ventricular response. The patient was started on intravenous amiodarone and eventually converted to oral dosing. The patient is in sinus rhythm at this time of my evaluation. There is no history in the chart of previous atrial dysrhythmias. He also carries no cardiac history. Past medical and surgical history 1. Pancytopenia 2. Appendectomy- Three tonsillectomy -1976 Social history Lives with a friend Smokes 3 or 4 cigarettes daily Admits to smoking marijuana No alcohol Family history Noncontributory Review of systems Unobtainable Allergies Allergy/AdvReac Type Severity Reaction Status Date / Time amoxicillin [From Augmentin] Allergy Severe rash, Verified 10/07/18 13:13 swelling in hands and legs clavulanic acid Allergy Severe rash, Verified 10/07/18 13:13 [From Augmentin] swelling in hands and legs clindamycin Allergy Intermediate Rash and Verified 10/07/18 13:13 extremity swelling Home Medications Home Medications Medication Instructions Recorded Confirmed Type ibuprofen [Advil Liqui-Gel] 400 mg PO Q6H PRN 01/15/20 01/15/20 History Patient History Medical History Hypophosphatemia Surgical History No significant past surgical history Family History Other No pertinent family history Social History Smoking Status: Current every day smoker Tobacco Type: Cigarettes Cigarettes Per Day: 3-4; Second Hand Exposure: Yes; Do You Dip or Chew Tobacco: No; Tobacco Cessation Education Requested by Patient: Yes Hx Alcohol Use: No Hx Substance Use: Yes Last Used Substance: Days (ago) Last Used Substance Other:: last week Preferred Language: Algerian Communication Ability: Effective Pipe Maker Required: No Beliefs That Will Affect Care: None marital status: Single Current Living Situation: Other Current Living Situation Comment: staying with friend Feels Safe at Home: Yes Safety Concerns: Feels Safe At This Time Physical Exam Physical Exam: No physical examination was performed today as he is a person under investigation. Results & Data ([facility]) Vital Signs (Past 12 Hours) Vital Signs Temp Pulse Resp BP Pulse Ox 01/18/20 09:00 36.5 C 75 14 96 01/18/20 08:45 36.5 C 74 15 83/56 L 94 01/18/20 08:00 36.6 C 74 15 01/18/20 07:45 36.6 C 74 16 81/55 L 01/18/20 07:00 36.6 C 77 17 93 01/18/20 06:46 36.5 C 79 15 96 01/18/20 06:45 36.7 C 80 18 85/57 L 95 Laboratory Results CBC notes hemoglobin of 7.2, hematocrit 20.1, white count 1.36, platelet count of 855016. Electrolytes note a sodium of 143, potassium 3.9, chloride 113, bicarb 23, BUN 11, creatinine 0.5, glucose of 112. Initial troponin was 0.042. No follow-up values. TSH is normal at 0.504. Diagnostic Findings EKG at time of presentation notes atrial flutter with a variable and rapid ventricular response. There is a diffuse ST abnormality. EKG this morning notes normal sinus rhythm and QT prolongation. wire spooler notes sinus rhythm at this time. Chest x-ray notes a right middle lung zone infiltrate. PG Care Time/CCT Total # of Minutes Spent Total Time Spent with Patient: Total time spent is greater than 50% in coordination of care (as documented) at patient's floor/unit and/or counseling patient: Coding Level of Care Code 19946 Inpt Consult Level 3 Diagnoses Atrial dysrhythmia I49.8
--- NOTE | 2020-01-18 15:22 | Electrocardiogram Report ---
Test Reason : Blood Pressure : / mmHG Vent. Rate : 077 BPM Atrial Rate : 077 BPM P-R Int : 154 ms QRS Dur : 086 ms QT Int : 444 ms P-R-T Axes : 024 026 045 degrees QTc Int : 502 ms Normal sinus rhythm Prolonged QT Abnormal ECG When compared with ECG of 15-JAN-2020 19:13, Sinus rhythm has replaced Atrial flutter Vent. rate has decreased BY 90 BPM Confirmed by Kobe Mora ([id number]) on 01/18/2020 3:22:16 PM Referred By: REFERRED SELF Confirmed By:Kobe Mora
--- NOTE | 2020-01-18 17:57 | Billing Data ---
Date of Service January 18, 2020 Coding Level of Care Code 50911 Subseq Hosp Care Lvl 1
[2020-01-18] MEDS: AZITHROMYCIN 500 MG in DEXTROSE 5% 250 ML IV SCH (20:10)
[2020-01-19] MEDS: HYDROCORTISONE SOD 50 MG in SYRINGE 0 ML IV SCH ×4 (01:12→19:22)
[2020-01-19 04:02] LABS: Marijuana Quant, GCMS Urine 91 ng/mL (<5)
[2020-01-19] MEDS: IMIPENEM/CILASTATIN SODIUM 500 MG in DEXTROSE 5% 100 ML IV SCH ×5 (06:16→23:56)
[2020-01-19 06:56] LABS: Hematocrit (blood only) 20.6 % (42-52); Hemoglobin 7.1 g/dL (14.0-18.0); Mean Corpuscular Hemoglobin 29.5 pg (25-34); Mean Corpuscular Hgb Conc 34.5 g/dL (32-36); Mean Corpuscular Volume 85.5 fL (80-100); Mean Platelet Volume 11.7 fL (7.4-10.4); Platelet Count 146 K/uL (130-400); RDW Coefficient of Variation 14.3 % (11.5-14.5); RDW Standard Deviation 45.3 fL (36.4-46.3); Red Blood Count 2.41 M/uL (4.7-6.1); White Blood Count 1.28 K/uL (4.8-10.8)
[2020-01-19] MEDS ORDERED: ICU ELECTROLYTE REPLACEMENT PROTOCOL PRN (07:12)
[2020-01-19 07:21] LABS: BUN Creatinine Ratio 33.2 (10-20); Blood Urea Nitrogen 14 mg/dl (7-18); Calcium 7.7 mg/dl (8.5-10.1); Carbon Dioxide 25 mmol/L (21-32); Chloride 115 mmol/L (98-107); Creatinine Clr Calc Pharmacy 174.7 ml/min; Est GFR (African American) > 150.0; Est GFR (Non-African American) 134.4; Glucose 124 mg/dl (70-99); Magnesium 2.3 mg/dl (1.8-2.4); Phosphorus 2.7 mg/dl (2.5-4.9); Potassium 4.1 mmol/L (3.5-5.1); Sodium 145 mmol/L (136-145)
[2020-01-19 07:38] LABS: Basophils # (auto) 0.01 K/uL (0-0.2); Basophils % (auto) 0.8 %; Immature Granulocytes # (auto) 0.02 K/uL (0.00-0.02); Immature Granulocytes % (auto) 1.6 %; Lymphocytes # (auto) 0.32 K/uL (1.2-3.4); Monocytes # (auto) 0.11 K/uL (0.11-0.59); Monocytes % (auto) 8.6 %; Neutrophils # (auto) 0.82 K/uL (1.4-6.5); Ovalocytes 1+
[2020-01-19] MEDS: THIAMINE HCL 100 MG TAB PO SCH (08:04)
[2020-01-19] MEDS: AMIODARONE 200 MG TAB PO SCH (08:04)
[2020-01-19] MEDS: FOLIC ACID 1 MG TAB PO SCH (08:04)
[2020-01-19] MEDS: INSULIN ASPART 100 UNITS/ML 3 ML PEN SC SCH ×4 (08:14→21:42)
[2020-01-19] MEDS ORDERED: MIDAZOLAM HCL 5 MG/ML 1 ML VIAL ONE (09:47)
[2020-01-19] MEDS ORDERED: fentaNYL citrate 100 MCG/2 ML VIAL ONE (09:48)
--- NOTE | 2020-01-19 10:03 | Hospitalist Progress Note ---
Date of Service January 19, 2020 Assessment & Plan (1) Dehydration: Mir Salgado is a 49-year-old man with a past medical history of sepsis after a dental procedure two years ago who presented with sepsis from an apparent bacterial pneumonia admitted to the ICU, BP low requiring pressors initially. HIV prelim. positive, awaiting confirmatory HIV testing, CD4 and viral load. Pneumonia Lung exam and chest x-ray demonstrated dense lobar consolidation, COVID screen was negative, however patient reports history of his roommate being sick and never tested for COVID. On admission procalcitonin was positive, lactate negative, troponin mildly elevated, likely demand ischemia, ANC was decreased to 0.8. Blood cultures were obtained, and the patient was administered Cefepime, Vanco., and Azithromycin currently in the ICU oxygenating well on RA. -Continue Vanco, Azithromycin, Primaxin and discontinued Voriconazole and Bactrim. -COVID negative -Patient has a dense lobar consolidation consistent with a bacterial CAP vs. aspiration pneumonia -TB testing ordered -Bronch with washing today -increased oxygen requirement to 4L after Bronch Neutropenia and Anemia Patient has been neutropenic for some time, based on his transient living situation and lack of consistent follow up has never had a workup Differential broad including chronic infection, Cancer, B12 folate deficiency amongst others. An anemia work-up was ordered along with B12, iron studies, chest CT, and hematology was consulted. For now continue with neutropenic precautions. -HIV prelim positive -pending: CD4, RNA copies, TB -Neutropenic precautions -blood culture no growth at 48 hours Atrial fibrillation -Continuous monitoring on telemetry -Cardiology consulted -Converted on Amiodarone, on orals -EKG to evaluate QTC Hypokalemia On admission, repleted adequately -Replete per ICU electrolyte protocol FENa: clears progress as tolerated GI: protonix Code Status: Full code DVT PPX: Heparin PT/OT: Not indicated at present Dispo: ICU pending clinical improvement Admission and Anticipated Discharge Date Admission Date: January 15, 2020 Supervising Physician Co-Signing Physician Notes case d/w dr godoy and COAL GASIFICATION TECHNICIAN. sedated post bronch. pneumonia - seems concerning for post-viral secondary overgrowth. certainly sx would be consistent with having had covid prior and then getting secondary overgrowth. HIV (+) broadens ddx. continue supportive care. ID involvement appreciated. appears to be stabilizing. otherwise as above Subjective Feeling stable from yesterday. Review of Systems Review of Systems: - unable to obtain due to drowsiness Physical Exam Respiratory: no respiratory distress and no labored breathing - decreased breath sounds with no clear w/r/r appreciated Cardiovascular: RRR, no murmur, no edema Gastrointestinal (Abdomen): - slight epigastric pain on palpation, not rigid no guarding Neurologic: + confused (sleepy, unable to answer questions) Results & Data Results & Data ([facility]) Vital Signs (Past 12 Hours) Vital Signs Temp Pulse Resp BP Pulse Ox 01/19/20 08:45 36.0 C L 68 15 99/64 L 01/19/20 08:00 36.1 C L 62 15 98 01/19/20 07:45 36.1 C L 61 16 99/65 L 96 01/19/20 07:00 36.2 C L 65 17 97 01/19/20 04:45 36.2 C L 63 17 90/62 L 97 01/19/20 03:45 35.9 C L 64 16 91/65 L 97 01/19/20 02:45 36.1 C L 70 14 95/65 L 94 01/19/20 01:45 36.1 C L 69 18 98/69 L 97 01/19/20 00:45 36.2 C L 65 9 L 90/63 L 96 01/18/20 23:45 36.3 C L 67 16 90/65 L 96 01/18/20 22:45 36.4 C L 70 16 92/64 L 96 CBC Results Results Complete Blood Count Results: RBC 2.41 M/uL (4.7-6.1) L 01/19/20 WBC 1.28 K/uL (4.8-10.8) L 01/19/20 Hgb 7.1 g/dL (14.0-18.0) L 01/19/20 Hct 20.6 % (42-52) L* 01/19/20 Plt Count 146 K/uL (130-400) 01/19/20 Chemistry (BMP) Results BMP Results: Sodium 145 mmol/L (136-145) 01/19/20 Potassium 4.1 mmol/L (3.5-5.1) 01/19/20 Chloride 115 mmol/L (98-107) H 01/19/20 BUN 14 mg/dl (7-18) 01/19/20 Creatinine 0.43 mg/dl (0.6-1.4) L 01/19/20 Glucose 124 mg/dl (70-99) H 01/19/20 Resident Activity Tracking Resident Involvement: Resident Care Provided Care Provided: Adult Hospital Medicine
--- NOTE | 2020-01-19 10:26 | Post Anesthesia Assessment ---
Date of Service January 19, 2020 Post Sedation Assessment Vital Signs Temp Pulse Resp BP Pulse Ox 01/19/20 08:45 36.0 C L 68 15 99/64 L 01/19/20 08:00 36.1 C L 62 15 98 01/19/20 07:45 36.1 C L 61 16 99/65 L 96 01/19/20 07:00 36.2 C L 65 17 97 01/19/20 04:45 36.2 C L 63 17 90/62 L 97 01/19/20 03:45 35.9 C L 64 16 91/65 L 97 01/19/20 02:45 36.1 C L 70 14 95/65 L 94 01/19/20 01:45 36.1 C L 69 18 98/69 L 97 01/19/20 00:45 36.2 C L 65 9 L 90/63 L 96 01/18/20 23:45 36.3 C L 67 16 90/65 L 96 01/18/20 22:45 36.4 C L 70 16 92/64 L 96 01/18/20 21:45 36.4 C L 73 17 96/69 L 98 01/18/20 20:45 36.5 C 71 18 88/60 L 96 01/18/20 19:45 36.6 C 70 17 97/67 L 100 01/18/20 18:00 36.5 C 77 17 95 01/18/20 17:45 36.5 C 79 18 90/60 L 96 01/18/20 17:00 36.5 C 73 16 91 01/18/20 16:45 36.4 C L 69 16 89/62 L 98 01/18/20 16:00 36.4 C L 68 16 96 01/18/20 15:45 36.5 C 74 16 86/61 L 95 01/18/20 15:00 36.6 C 72 17 96 01/18/20 14:45 36.6 C 72 18 92/63 L 96 01/18/20 14:00 36.5 C 75 15 01/18/20 13:45 36.6 C 72 17 89/60 L 01/18/20 13:00 36.5 C 81 18 01/18/20 12:45 36.4 C L 84 21 91/61 L 01/18/20 12:00 36.4 C L 80 15 95 01/18/20 11:45 36.3 C L 80 20 91/58 L 96 01/18/20 11:00 36.3 C L 70 18 01/18/20 10:45 36.3 C L 69 15 89/57 L Discharge Sedation Level of Care: Fast Track Phase II Post Sedation Plan On clinical assessment, the patient appears to have tolerated the sedation without complications. Patient is recovering as anticipated. Patient will continue to be monitored by nursing and may be discharged when sedation discharge criteria are met per below protocol. Upon Completions of procedure up to 15 minutes continue every 5 minute vital signs and the P.A.R. score; then discharge to a Phase I or Fast Track to Phase II per the following guidelines: * Discharge Patient to appropriate Phase II area if PAR is 8 or greater or return to pre- procedure baseline. The post - procedure orders will be as directed. * If PAR score is less than 8 or not return to pre-procedure baseline then patient will follow Phase I monitoring till PAR is reached for Phase II. The Phase I may be done in procedure room or may call to secure a Phase I area. * If naloxone or flumazenil are used for reversal, hold in Phase I for continued monitoring from when last reversal dose was given for a minimum of 60 minutes or longer pending the nurse and/or physician discretion of patient condition before discharge to Phase II. Please call the Sedation Physician to re-evaluate and complete post-note for discharge to Phase II area. Do NOT discharge from procedure sedation or Phase 1 until post- sedation evaluation note is complete by procedure /sedation MD Sedation Discharge Instructions to be given to the patient at discharge to home.
--- NOTE | 2020-01-19 11:15 | Procedure Note ---
Procedure Note: Bronchoscopy Procedure Procedure: Fiberoptic bronchoscopy Bronchoalveolar lavage Conscious sedation Provider: Corky Neff MD Consent: Signed by patient and timeout verified prior to procedure. Sedation start: 1014 Sedation end: 1034 Conscious sedation: 75 mcg fentanyl, 3 mg Versed, topical lidocaine per RT malachi col Procedure: Patient was brought to the bronchoscopy suite. Consent was verified. Appropriate radiographic studies had been reviewed prior to the procedure. Standard monitoring was applied. Oxygen was administered. After topical anesthesia of the airways per respiratory therapy protocol, the fiberoptic scope was advanced through the right nares. Oropharynx was unremarkable. Vocal cords were visualized and were normal in function and appearance. Topical anesthesia of the cords was achieved with instillation of lidocaine through the scope. Scope was then passed through the vocal cords. The trachea was midline. Main emi was slightly splayed. Anesthesia of the lower airways was achieved with instillation of lidocaine through the scope. A sequential and systematic examination of the lower airways was conducted. The right-sided airways were widely patent and the mucosa appeared normal. Left- sided airways were widely patent and the mucosa appeared normal. After the inspection bronchoscopy was completed, the scope was wedged into the basilar segments of the right lower lobe. A BAL was performed with instillation of 2 aliquots 60 cc sterile saline. The return was slightly cloudy and slightly suboptimal due to the easy collapsibility of the airways however it did not appear bloody. The bronchoscope was then removed from the airways. The patient tolerated the procedure well without obvious complication. Patient will be recovered in the ICU at which point time he can be transferred to the floor Impression: 1. Unremarkable inspection bronchoscopy. 2. Successful BAL right lower lobe. Fluid sent for GMS, cell count and differential, fungal stains and culture, AFB stains and culture and cytology.
--- NOTE | 2020-01-19 11:22 | Critical Care Progress Note ---
Date of Service January 19, 2020 Assessment & Plan (1) Septic shock: Reason Critically Ill: 49-year-old male with pneumonia and septic shock requiring vasopressor support now off pressors. Likely HIV with possible AIDS. Neuro - [facility] ICU: Negative Cardiac - Hypotension/shockrepeat cortisol level was checked and low at 4.4. Stress dose steroids started. Add Florinef to his regiment. He may benefit from midodrine if blood pressure remains an issue. Atrial fluttersuspect this was related to stress response. Will discontinue amiodarone given his QTC and follow for now. No indication for anticoagulation given low chads score. Respiratory - Pneumonia Patient with right lower lobe pneumonia. Likely aspiration pneumonia with possible necrotizing component given the cavitary lesion. Patient is now on room air. He is had 2- COVID tests. The reported third test was never sent and I think there is a low likelihood of this being COVID so he does not need to covert isolation but does require continued isolation until his AFB comes back GI - Okay to advance diet once he has the anesthesia from bronchoscopy wear off. RENAL/LYTES - Creatinine within normal limits Monitor electrolytes routine BMPs and replete as indicated - Strict I's and O's. Discontinue Vidal. ENDO - No history of diabetes or thyroid disease, TSH within normal limits ICU hyperglycemic protocol HEME - Patient continues to have significant anemia. Likely hemodilution all and anemia of chronic disease. Peripheral smear pending. Holding anticoagulation at this time. I checked a ferritin level and a triglyceride level. Triglyceride level is within normal limits. Ferritin level has stabilized. Unlikely to be HLH. May need a bone marrow biopsy and/or heme-onc consult as an outpatient if anemia does not improve. ID - Continue imipenem and azithromycin. Patient likely is severely i mmunocompromised. CD4 count is pending. Confirmatory HIV testing is pending as well. Appreciate infectious disease consult from [employer]. Await bronchoscopy cultures. Continue respiratory isolation for TB although he does not need isolation for COVID. VTE: Holding chemical DVT prophylaxis GI: Protonix Lines: Right IJ The patient is stable to transfer out of the intensive care unit to the floor. We will continue to follow for pulmonary issues. (2) Hypotension: (3) Pneumonia: (4) Hypoxia: (5) Admitted to intensive care unit: (6) Transaminitis: (7) Leukopenia: (8) Anemia: Admission and Anticipated Discharge Date Admission Date: January 15, 2020 Subjective Patient seen and examined. Discussed with patient at bedside as well as critical care nurse and on multidisciplinary rounds. Patient states that he is feeling okay. No significant respiratory complaints. No chest pain or palpitations. Review of Systems Review of Systems: All systems reviewed & are unremarkable except as noted in HPI & below Physical Exam Physical Exam: Constitutional: No acute distress, frail-appearing HEENT: EOMI, PERRLA Respiratory system: Decreased air entry bilaterally, positive right lower lobe crackles, no wheeze, no rhonchi CVS: S1-S2 positive, no murmurs or gallops, tachycardia Abdomen: Soft, nontender, nondistended, positive bowel sounds x4, periumbilical tattoo Extremities: +2 pulses bilaterally radialis/ dorsalis pedis, no cyanosis, no edema Neuro: Awake alert oriented x3 Psych: Normal mood and affect G/U: Positive Vidal Skin: no rashes, warm and dry Lymphatic: no cervical or axillary lymphadenopathy Results & Data Results & Data ([facility]) Vital Signs (Past 12 Hours) Vital Signs Temp Pulse Resp BP Pulse Ox 01/19/20 10:45 35.9 C L 69 29 H 93 01/19/20 10:40 35.9 C L 73 23 94 01/19/20 10:36 35.9 C L 70 18 89/66 L 95 01/19/20 10:35 35.9 C L 70 19 95 01/19/20 10:33 36.0 C L 72 18 85/64 L 95 01/19/20 10:31 36.0 C L 75 23 87/65 L 94 01/19/20 10:30 36.0 C L 70 22 95 01/19/20 10:29 36.0 C L 73 21 94/65 L 94 01/19/20 10:26 36.0 C L 73 20 95/68 L 97 01/19/20 10:25 36.0 C L 74 21 96 01/19/20 10:24 36.0 C L 75 22 101/67 95 01/19/20 10:23 36.0 C L 75 19 96/68 L 96 01/19/20 10:20 36.1 C L 73 16 95 01/19/20 10:19 36.0 C L 78 19 93/68 L 99 09/16/20 10:15 36.0 C L 68 15 100 01/19/20 10:14 36.0 C L 67 11 L 103/70 100 01/19/20 10:10 36.0 C L 71 19 100 01/19/20 10:05 36.0 C L 64 11 L 100 01/19/20 08:45 36.0 C L 68 15 99/64 L 01/19/20 08:00 36.1 C L 62 15 98 01/19/20 07:45 36.1 C L 61 16 99/65 L 96 01/19/20 07:00 36.2 C L 65 17 97 01/19/20 04:45 36.2 C L 63 17 90/62 L 97 01/19/20 03:45 35.9 C L 64 16 91/65 L 97 01/19/20 02:45 36.1 C L 70 14 95/65 L 94 01/19/20 01:45 36.1 C L 69 18 98/69 L 97 01/19/20 00:45 36.2 C L 65 9 L 90/63 L 96 01/18/20 23:45 36.3 C L 67 16 90/65 L 96 Laboratory Results 01/19/20 06:23 01/19/20 06:23 Cultures no growth to date. Deisy test negative x2 QuantiFERON pending Diagnostic Findings Imaging studies independently reviewed. Coding Level of Care Code 76929 Subseq Hosp Care Lvl 3 Diagnoses Septic shock A41.9; R65.21 Hypotension I95.9 Hypotension type: unspecified hypotension type Pneumonia J18.9 Laterality: right Lung location: lower lobe of lung Pneumonia type: due to unspecified organism Hypoxia R09.02 Admitted to intensive care unit Z78.9 Transaminitis R74.0 Leukopenia D72.819 Leukopenia type: unspecified Anemia D64.9 Anemia type: unspecified type (1) Hypotension Hypotension type: unspecified hypotension type Qualified Code(s): I95.9 - Hypotension, unspecified (2) Pneumonia Laterality: right Lung location: lower lobe of lung Pneumonia type: due to unspecified organism Qualified Code(s): J18.9 - Pneumonia, unspecified organism (3) Leukopenia Leukopenia type: unspecified Qualified Code(s): D72.819 - Decreased white blood cell count, unspecified (4) Anemia Anemia type: unspecified type Qualified Code(s): D64.9 - Anemia, unspecified
[2020-01-19] MEDS: FLUDROCORTISONE ACETATE 0.1 MG TAB PO SCH (11:48)
[2020-01-19 12:25] LABS: Neutrophil Body Fluid Man 26 %
[2020-01-19 12:26] LABS: Eosinophil Body Fluid Man 0 %; Fluid Mono/Macrophage 71 %; Lymphocyte Body Fluid Man 3 %
[2020-01-19] MEDS ORDERED: Nursing to Pharmacy Communication SCH (15:00)
--- NOTE | 2020-01-19 17:47 | Billing Data ---
Date of Service January 19, 2020 Coding Level of Care Code 06977 Subseq Hosp Care Lvl 1
[2020-01-20] MEDS: HYDROCORTISONE SOD 50 MG in SYRINGE 0 ML IV SCH ×4 (02:41→23:49)
[2020-01-20] MEDS: IMIPENEM/CILASTATIN SODIUM 500 MG in DEXTROSE 5% 100 ML IV SCH ×4 (05:13→23:48)
[2020-01-20 05:28] LABS: Hematocrit (blood only) 21.9 % (42-52); Hemoglobin 7.4 g/dL (14.0-18.0); Mean Corpuscular Hemoglobin 29.1 pg (25-34); Mean Corpuscular Hgb Conc 33.8 g/dL (32-36); Mean Corpuscular Volume 86.2 fL (80-100); Mean Platelet Volume 11.8 fL (7.4-10.4); Nucleated RBC # (auto) 0.02 K/uL (0-0); Nucleated RBC % (auto) 1.7 %; Platelet Count 163 K/uL (130-400); RDW Coefficient of Variation 14.5 % (11.5-14.5); RDW Standard Deviation 46.2 fL (36.4-46.3); Red Blood Count 2.54 M/uL (4.7-6.1); White Blood Count 1.23 K/uL (4.8-10.8)
[2020-01-20 05:56] LABS: BUN Creatinine Ratio 32.7 (10-20); Calcium 7.7 mg/dl (8.5-10.1); Creatinine Clr Calc Pharmacy 136.6 ml/min; Est GFR (African American) 140.8; Est GFR (Non-African American) 121.5; Magnesium 2.3 mg/dl (1.8-2.4); Potassium 4.2 mmol/L (3.5-5.1)
[2020-01-20 05:57] LABS: Phosphorus 3.1 mg/dl (2.5-4.9)
[2020-01-20 06:33] LABS: Dohle Bodies 2+; Giant Platelets 2+; Immature Granulocytes # (auto) 0.08 K/uL (0.00-0.02); Immature Granulocytes % (auto) 6.5 %; Lymphocytes # (auto) 0.35 K/uL (1.2-3.4); Lymphocytes % (auto) 28.5 %; Monocytes # (auto) 0.13 K/uL (0.11-0.59); Monocytes % (auto) 10.6 %; Neutrophils # (auto) 0.67 K/uL (1.4-6.5); Neutrophils % (auto) 54.4 %; Ovalocytes 1+
[2020-01-20] MEDS: THIAMINE HCL 100 MG TAB PO SCH (08:24)
[2020-01-20] MEDS: AZITHROMYCIN 250 MG TAB PO SCH (08:24)
[2020-01-20] MEDS: FLUDROCORTISONE ACETATE 0.1 MG TAB PO SCH (08:24)
[2020-01-20] MEDS: FOLIC ACID 1 MG TAB PO SCH (08:24)
[2020-01-20] MEDS: INSULIN ASPART 100 UNITS/ML 3 ML PEN SC SCH ×4 (09:12→21:59)
--- NOTE | 2020-01-20 11:42 | Pulmonology Progress Note ---
Date of Service January 20, 2020 Assessment & Plan (1) Pneumonia: Impression: 49-year-old male with preliminarily positive HIV and pneumonia. Initially presented with septic shock which is resolved. He is status post bronchoscopy with BAL from 01/19/2020. Recommendations: 1. Pneumonia: Continue antibiotics under the direction of infectious disease. AFB samples have been collected and are pending. Would continue until samples are negative at 72 hours or per ID treasury management sales consultant recommendations given his HIV status. It appears QuantiFERON was ordered but was inappropriately collected. Given his probable HIV status, I see little utility in repeating that study currently as it would only be helpful if it was positive and we Abad have the gold standard pending in the form of a BAL sample. Biopsies were not conducted. There are multiple serologies that are currently pending but will need to be followed and adjusted based on ID consult and recommendations. He will need follow-up imaging to assure resolution of the airspace opacity We will discontinue the patient's Vidal catheter. He needs to get out of bed and start ambulating. Will request PT OT evaluations. Pulmonary issues appear stable resolved at this point time. He no longer requires oxygen and appears to be clinically improved. Will sign off at this point in time. Feel free to contact us if we can be of additional assistance. Laterality: right Lung location: lower lobe of lung Pneumonia type: due to unspecified organism Qualified Code(s): J18.9 - Pneumonia, unspecified organism Admission and Anticipated Discharge Date Admission Date: January 15, 2020 Subjective Patient seen and examined. He tolerated bronchoscopy well yesterday. He transiently required oxygen but is now back to room air. He continues to feel weak. He is getting up to use the bedside commode with assistance of a walker. His Vidal catheter is not yet removed. He is not experiencing any hemoptysis and his cough remains nonproductive. Review of Systems Review of Systems: All systems reviewed & are unremarkable except as noted in HPI & below Physical Exam Physical Exam: Constitutional: No acute distress, frail-appearing HEENT: EOMI, PERRLA Respiratory system: Decreased air entry bilaterally, positive right lower lobe crackles, no wheeze, no rhonchi CVS: S1-S2 positive, no murmurs or gallops, tachycardia Abdomen: Soft, nontender, nondistended, positive bowel sounds x4, periumbilical tattoo Extremities: +2 pulses bilaterally radialis/ dorsalis pedis, no cyanosis, no edema Neuro: Awake alert oriented x3 Psych: Normal mood and affect G/U: Positive Vidal Skin: no rashes, warm and dry Lymphatic: no cervical or axillary lymphadenopathy Results & Data Results & Data ([facility]) Vital Signs (Past 12 Hours) Vital Signs Temp Pulse Resp BP Pulse Ox 01/20/20 10:43 36.2 C L 77 21 108/68 95 01/20/20 09:20 36.1 C L 69 22 98 01/20/20 09:19 36.1 C L 69 19 113/76 95 01/20/20 08:19 36.0 C L 61 13 105/72 97 01/20/20 08:00 79 01/20/20 07:19 36.2 C L 59 L 14 110/71 94 01/20/20 06:00 36.0 C L 69 13 117/76 95 01/20/20 05:00 36.0 C L 62 13 111/77 97 01/20/20 04:00 36.1 C L 72 13 103/66 96 01/20/20 03:00 36.1 C L 66 15 102/68 96 01/20/20 02:00 36.0 C L 59 L 15 100/67 94 01/20/20 01:00 36.0 C L 66 17 97/67 L 97 01/20/20 00:00 36.1 C L 68 18 96/61 L 97 Laboratory Results 01/20/20 05:13 01/20/20 05:13 Bronchoscopic cultures are no growth to date. AFB stains from bronchial wash and BAL show no organisms Diagnostic Findings No new films PG Care Time/CCT Total # of Minutes Spent Total Time Spent with Patient: Total time spent is greater than 50% in co ordination of care (as documented) at patient's floor/unit and/or counseling patient: Coding Level of Care Code 81649 Subseq Hosp Care Lvl 2 Diagnoses Pneumonia J18.9 Laterality: right Lung location: lower lobe of lung Pneumonia type: due to unspecified organism
[2020-01-20 14:51] LABS: HIV 1,2 Ag,Ab 4th gen REPEATEDLY REACTIVE (NON-REACTIVE)
--- NOTE | 2020-01-20 19:06 | Billing Data ---
Date of Service January 20, 2020 Coding Level of Care Code 02750 Subseq Hosp Care Lvl 3
--- NOTE | 2020-01-20 19:21 | Medical Student Progress Note ---
Date of Service January 20, 2020 Assessment & Plan (1) Pneumonia: Mr. Salgado is a 49 yo man who presented to the ED with septic shock that's likely due to CAP. PE of the lungs, CXR, CT, and + blood cultures are consistent with a lower right lobe pneumonia. The infiltrate has a necrotic center which maybe suggestive of a TB kind of infection, however, the patient underwent a bronchoscopy that was negative for AFB, results are still pending. Plan: patient should continue on his current ABx: cefcapene, vancomycin, and azithromycin as we await bronchoscopy results Laterality: right Lung location: lower lobe of lung Pneumonia type: due to unspecified organism Qualified Code(s): J18.9 - Pneumonia, unspecified organism (2) HIV (human immunodeficiency virus infection): This is a new preliminary diagnosis for Mr. Salgado. CD4+ and viral load results are still pending. He denies testing positive for any STD's in the past. He is sexually active with one male partner and he plans on discussing thses results with him soon. Plan: ask for infectious disease advice on the best kind of drugs he should get started on as we wait for results. Additionally, educate the patient on this new diagnosis, explain how the disease spreads, and the high effectiveness and treatment success when complying with treatment. Important to follow up with ID. (3) Anemia: He seems to be hemodynamically stable. He is not symptomatically anemic and his Hg is over 7 H.4, RBC: 2.5, Hct: 21.9, WBC: 1.23, Neut: 0.7 Plan: Continue to monitor. He is already on ABx, no concerned for superinfection at this point. Could transfuse blood if he becomes symptomatically anemic or his labs significantly worsen. Anemia type: unspecified type Qualified Code(s): D64.9 - Anemia, unspecified Admission and Anticipated Discharge Date Admission Date: January 15, 2020 Supervising Attestation I personally examined the patient and verified all espinal points of history and exam, discussed case, and agree with decision making with Jacinta GA. feeling weak - didn't really do well getting out of bed. eating Ok. breathing much better than before. relates HPI - sick then better then sick again then in hospital. vitals noted nad heent nc at mmm breathing unlabored no accessory muscles good effort skin no rashes no pallor or icterus pneumonia - severe CAP - suspect CAP type pathogens vs MRSA/pseudomonas needing to be covered givne his severity of illness. time course sounds as though he had viral illness - then recovery then secondary bacterial overgrowth. suspect necrotic center just due to density and severity - but agree have to r/o other pathgens. seems to be improving nicely. continue current abx and supportive care. weakness/deconditioning -PT/OT eval and treat new dx HIV - counselling, discussed that treatment is generally successful in the modern era, discussed concerns that might relate to cost and/or adherence. otherwise as above Subjective Mr. Salgado's care has been transferred from [facility] to the team. He reports feeling better overall and has better appetite and is able to sit in bed. He feels some fatigue and that his legs are swollen, both of which he associates with his hospital stay and not being able to mobilize often. He also feels somewhat depressed due to his state of health, including his recent HIV diagnosis. He denies chest pain, SOB, nausea, vomiting, dizziness, lightheadedness, and headaches. Review of Systems Constitutional: + fatigue; no fever, no chills and no sweats Respiratory: no dyspnea Cardiovascular: no chest pain, no chest pain at rest, no chest pain with activity, no dyspnea, no palpitations, no lightheadedness and no syncope Gastrointestinal: no abdominal pain, no nausea and no vomiting Psychiatric: + depression Physical Exam Constitutional: + ill appearing and + thin; no altered mental status Respiratory: normal respiratory effort Auscultation: + crackles (right lower lobe. ) Left lobe was clear to auscultation Cardiovascular: Distant heart sounds. Was unable to hear Results & Data ([facility]) Vital Signs (Past 12 Hours) Vital Signs Temp Pulse Resp BP Pulse Ox 01/20/20 17:26 83 01/20/20 17:19 36.5 C 70 18 116/81 01/20/20 17:05 36.5 C 79 20 103/72 96 01/20/20 15:00 36.3 C L 75 17 93 01/20/20 14:00 36.1 C L 77 12 90 01/20/20 13:17 36.1 C L 73 21 103/65 96 01/20/20 12:09 36.1 C L 71 19 110/74 98 01/20/20 10:43 36.2 C L 77 21 108/68 95 01/20/20 09:20 36.1 C L 69 22 98 01/20/20 09:19 36.1 C L 69 19 113/76 95 01/20/20 08:19 36.0 C L 61 13 105/72 97 01/20/20 08:00 79 01/20/20 07:19 36.2 C L 59 L 14 110/71 94
--- NOTE | 2020-01-20 20:05 | Billing Data ---
Date of Service January 20, 2020 Coding Level of Care Code 65723 Subseq Hosp Care Lvl 3
[2020-01-21] MEDS: HYDROCORTISONE SOD 50 MG in SYRINGE 0 ML IV SCH ×4 (02:38→19:43)
[2020-01-21] MEDS: IMIPENEM/CILASTATIN SODIUM 500 MG in DEXTROSE 5% 100 ML IV SCH ×3 (05:14→18:17)
[2020-01-21 07:11] LABS: Quantiferon Mitogen-NIL 0.43 IU/mL; Quantiferon NIL 0.03 IU/mL; Quantiferon TB Gold Plus INDETERMINATE (NEGATIVE)
[2020-01-21 07:34] LABS: Hematocrit (blood only) 23.2 % (42-52); Hemoglobin 7.6 g/dL (14.0-18.0); Mean Corpuscular Hgb Conc 32.8 g/dL (32-36); Mean Corpuscular Volume 88.5 fL (80-100); Mean Platelet Volume 11.2 fL (7.4-10.4); Nucleated RBC # (auto) 0.05 K/uL (0-0); Nucleated RBC % (auto) 3.2 %; Platelet Count 140 K/uL (130-400); RDW Coefficient of Variation 14.3 % (11.5-14.5); RDW Standard Deviation 46.1 fL (36.4-46.3); Red Blood Count 2.62 M/uL (4.7-6.1); White Blood Count 1.66 K/uL (4.8-10.8)
[2020-01-21] MEDS: INSULIN ASPART 100 UNITS/ML 3 ML PEN SC SCH ×4 (07:58→20:59)
[2020-01-21 07:59] LABS: BUN Creatinine Ratio 35.4 (10-20); Calcium 8.7 mg/dl (8.5-10.1); Creatinine Clr Calc Pharmacy 155.9 ml/min; Est GFR (Non-African American) 123.4; Magnesium 2.3 mg/dl (1.8-2.4); Potassium 3.6 mmol/L (3.5-5.1)
[2020-01-21 08:00] LABS: Giant Platelets 2+; Phosphorus 3.2 mg/dl (2.5-4.9)
[2020-01-21] MEDS: THIAMINE HCL 100 MG TAB PO SCH (08:10)
[2020-01-21] MEDS: AZITHROMYCIN 250 MG TAB PO SCH (08:10)
[2020-01-21] MEDS: FOLIC ACID 1 MG TAB PO SCH (08:10)
[2020-01-21] MEDS: FLUDROCORTISONE ACETATE 0.1 MG TAB PO SCH (08:11)
[2020-01-21 08:12] LABS: ALC (manual) 0.61 K/uL (1.2-3.4); ANC (manual) 0.71 K/uL (1.4-6.5); Lymphocytes # (manual) 0.61 K/uL (1.2-3.4); Metamyelocytes # (manual) 0.03 K/uL (0-0); Neutrophils # (manual) 0.71 K/uL (1.4-6.5)
--- NOTE | 2020-01-21 17:36 | Hospitalist Progress Note ---
Date of Service January 21, 2020 Assessment & Plan Admission and Anticipated Discharge Date Admission Date: January 15, 2020 Mir Salgado is a 49-year-old man with a past medical history of sepsis after a dental procedure two years ago who presented with sepsis from an apparent bacterial pneumonia admitted to the ICU, BP low requiring pressors initially. HIV confirmatory positive, awaiting CD4, genotype, and viral load. Clinically improved. Pneumonia Lung exam and chest x-ray demonstrated dense lobar consolidation, COVID screen was negative, however patient reports history of his roommate being sick and never tested for COVID. On admission procalcitonin was positive, lactate negative, troponin mildly elevated, likely demand ischemia, ANC was decreased to 0.8. Blood cultures were obtained, and the patient was administered Cefepime, Vanco., and Azithromycin initially in the ICU, currently in the PCU and doing well. -Continue Imipenem/Cilastin, and Azithromycin -COVID negative -Patient has a dense lobar consolidation consistent with a bacterial CAP vs. aspiration pneumonia -AFB culture pending -Bronch washing with Staph species with sensitivities to follow -on RA Neutropenia and Anemia Patient has been neutropenic for some time, based on his transient living situation and lack of consistent follow up has never had a workup Differential broad including chronic infection, Cancer, B12 folate deficiency amongst others. For now continue with neutropenic precautions. -HIV positive -pending: CD4, RNA copies, TB -Neutropenic precautions -blood culture no growth HIV positive status with pending CD4 and viral load - ID consult with Dr. Perez, discussed case over the phone and he asked for a genotype to be ordered, we could start antiretroviral therapy but we would need to ensure that the patient is able to follow up and consistently and take the medication to avoid the development of resistance. - Discussed case with ED pharmacist Ashley, reviewed potential regimen including 1) Descovy + Tivicay or 2) Descovy + Prezista + Norvir. Although, she thought the ID doctor should weigh in prior to prescribing any specific regimen and possibly having the results of the genotype - patient's insurance is [employer] - formulary: [email or web address] (potential for the need for prior approval for medications prior to D/C) - patient is contacting sexual partner to disclose his HIV status Atrial fibrillation -Continuous monitoring on telemetry -Cardiology consulted -Converted on Amiodarone -Currently NSR Hypokalemia On admission, repleted adequately -Replete as needed DVT: held, consider restarting although patient has been ambulating Code: full Diet: regular Dispo: PCU Supervising Physician Co-Signing Physician Notes I personally examined the patient and verified all espinal points of history and exam, discussed case, and agree with decision making with Dr Flynn feeling better breathing well up and out of bed a lot today. dr flynn actively discussing case w dr perez vitals noted nad heent nc at mmm breathing unlabored no accessory muscles good effort skin no rashes no pallor or icterus pneumonia - seems concerning for post-viral secondary overgrowth. certainly sx would be consistent with having had covid prior and then getting secondary overgrowth. HIV (+) broadens ddx. continue supportive care. ID involvement appreciated. improving. continue current care for now. 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 We talked about how we were working on coordinating his outpatient medication and ensuring that he did not have TB at this time. Review of Systems Review of Systems: constitutional: denies fevers, chills cardiac: denies chest pain, palpitations pulmonary: denies cough or shortness of breath GI: denies abdominal pain Physical Exam Constitutional: - thin, no acute distress Eyes: PERRL, conjunctivae normal, anicteric sclerae ENMT: external ear and nose normal, oropharynx normal Neck: normal visual inspection Respiratory: - right lower lobe crackles, good air movement no wheezes Cardiovascular: RRR, no murmur, no edema Chest (Breasts): normal inspection/palpation of breasts Gastrointestinal (Abdomen): Inspection/Auscultation: abdomen normal to inspection - no guarding, not rigid Skin: no rashes, warm and dry Psychiatric: A+Ox3, euthymic affect Results & Data Results & Data ([facility]) Vital Signs (Past 12 Hours) Vital Signs Temp Pulse Pulse Resp BP Pulse Ox 01/21/20 17:31 36.5 C 54 L 21 112/67 98 01/21/20 16:11 77 01/21/20 16:00 61 01/21/20 12:22 36.5 C 62 16 108/68 98 01/21/20 10:30 98 01/21/20 08:19 36.5 C 58 L 16 104/70 94 01/21/20 08:00 56 L CBC Results Results Complete Blood Count Results: RBC 2.62 M/uL (4.7-6.1) L 01/21/20 WBC 1.66 K/uL (4.8-10.8) L 01/21/20 Hgb 7.6 g/dL (14.0-18.0) L 01/21/20 Hct 23.2 % (42-52) L 01/21/20 Plt Count 140 K/uL (130-400) 01/21/20 Chemistry (BMP) Results BMP Results: Sodium 145 mmol/L (136-145) 01/21/20 Potassium 3.6 mmol/L (3.5-5.1) 01/21/20 Chloride 112 mmol/L (98-107) H 01/21/20 BUN 19 mg/dl (7-18) H 01/21/20 Creatinine 0.53 mg/dl (0.6-1.4) L 01/21/20 Glucose 112 mg/dl (70-99) H 01/21/20 Resident Activity Tracking Resident Involvement: Resident Care Provided Care Provided: Adult [facility] Medicine
--- NOTE | 2020-01-21 19:16 | Billing Data ---
Date of Service January 21, 2020 Coding Level of Care Code 59608 Subseq Hosp Care Lvl 3
[2020-01-22] MEDS: HYDROCORTISONE SOD 50 MG in SYRINGE 0 ML IV SCH ×4 (01:14→20:17)
[2020-01-22] MEDS: IMIPENEM/CILASTATIN SODIUM 500 MG in DEXTROSE 5% 100 ML IV SCH ×4 (01:15→18:40)
[2020-01-22 07:07] LABS: Hematocrit (blood only) 23.3 % (42-52); Hemoglobin 7.7 g/dL (14.0-18.0); Mean Corpuscular Hemoglobin 29.2 pg (25-34); Mean Corpuscular Volume 88.3 fL (80-100); Mean Platelet Volume 10.8 fL (7.4-10.4); Nucleated RBC # (auto) 0.06 K/uL (0-0); Nucleated RBC % (auto) 3.1 %; Platelet Count 130 K/uL (130-400); RDW Coefficient of Variation 14.3 % (11.5-14.5); Red Blood Count 2.64 M/uL (4.7-6.1); White Blood Count 1.91 K/uL (4.8-10.8)
[2020-01-22 07:33] LABS: ALC (manual) 0.52 K/uL (1.2-3.4); ANC (manual) 1.11 K/uL (1.4-6.5); BUN Creatinine Ratio 29.7 (10-20); Calcium 8.1 mg/dl (8.5-10.1); Creatinine Clr Calc Pharmacy 155.9 ml/min; Est GFR (Non-African American) 123.4; Lymphocytes # (manual) 0.52 K/uL (1.2-3.4); Magnesium 2.2 mg/dl (1.8-2.4); Metamyelocytes # (manual) 0.02 K/uL (0-0); Metamyelocytes % (manual) 0.9 %; Monocytes # (manual) 0.22 K/uL (0.11-0.59); Monocytes % (manual) 11.3 %; Myelocytes # (manual) 0.05 K/uL (0-0); Myelocytes % (manual) 2.6 %; Neutrophils # (manual) 1.11 K/uL (1.4-6.5); Neutrophils % (manual) 58.2 %; Ovalocytes 1+; Phosphorus 3.2 mg/dl (2.5-4.9); Potassium 3.2 mmol/L (3.5-5.1); Tear Drop Cells 1+
[2020-01-22] MEDS ORDERED: POTASSIUM CHLORIDE 20 MEQ TABCR PO STA (08:55)
[2020-01-22] MEDS: FLUDROCORTISONE ACETATE 0.1 MG TAB PO SCH (09:53)
[2020-01-22] MEDS: THIAMINE HCL 100 MG TAB PO SCH (09:54)
[2020-01-22] MEDS: FOLIC ACID 1 MG TAB PO SCH (09:54)
[2020-01-22] MEDS: AZITHROMYCIN 250 MG TAB PO SCH (09:55)
[2020-01-22] MEDS: INSULIN ASPART 100 UNITS/ML 3 ML PEN SC SCH ×4 (10:54→20:21)
--- NOTE | 2020-01-22 18:45 | Hospitalist Progress Note ---
Date of Service January 22, 2020 Assessment & Plan (1) Pneumonia: severe CAP in the context of HIV improving continue current (2) HIV (human immunodeficiency virus infection): awaiting CD4 awaiting input from ID on starting regimen educated on general expectations with treatment and critical importance for adherence (3) Anemia: and leukopenia follow (4) DVT prophylaxis: ambulation (5) Discharge planning issues: ongiong improvement, continue IV abx next few days would very much want HIV regimen settled prior to discharge Admission and Anticipated Discharge Date Admission Date: January 15, 2020 Subjective feeling pretty good breathing fine eating well getting around better discussed discharge planning Review of Systems Review of Systems: All systems reviewed & are unremarkable except as noted in HPI & below Physical Exam Physical Exam: gen aao pleasant nad heent nc at mmm breathing unlabored no accessory muscles good effort skin no rashes no pallor or icterus neuro no focal deficits Results & Data Results & Data ([facility]) Vital Signs (Past 12 Hours) Vital Signs Temp Pulse Pulse Resp BP BP Pulse Ox 01/22/20 15:49 97.7 F 60 16 109/66 98 01/22/20 15:26 63 01/22/20 11:08 97.5 F L 61 16 112/66 92 01/22/20 08:07 97.7 F 50 L 18 125/70 98 01/22/20 08:00 51 L PG Care Time/CCT Total # of Minutes Spent Total Time Spent with Patient: Total time spent is greater than 50% in coordination of care (as documented) at patient's floor/unit and/or counseling patient: Coding Level of Care Code 54889 Subseq Hosp Care Lvl 3 Diagnoses Pneumonia J18.9 Laterality: right Lung location: lower lobe of lung Pneumonia type: due to unspecified organism HIV (human immunodeficiency virus infection) B20 Anemia D64.9 Anemia type: unspecified type DVT prophylaxis Z29.9 Discharge planning issues Z02.9 (1) Pneumonia Laterality: right Lung location: lower lobe of lung Pneumonia type: due to unspecified organism Qualified Code(s): J18.9 - Pneumonia, unspecified organism (2) Anemia Anemia type: unspecified type Qualified Code(s): D64.9 - Anemia, unspecified
[2020-01-22 20:46] LABS: Aspergillus Ag Index 0.06 (<0.50); Aspergillus Antigen, Serum Not Detected (Not Detected); Aspergillus Flavus Negative (Negative); Aspergillus Niger Negative (Negative); Fungitell (1-3)-B-D-Glucan 307 pg/mL; HIV 1 RNA PCR Copies/ML 773000 copies/mL (NOT DETECTED); HIV-1 RNA Log Copies/mL 5.89 (NOT DETECTED); LSP % Cells Analyzed CD4 1 % (30-61); LSP Absolute Ct CD4 5 cells/uL (490-1740); LSP Lymphocytes Absolute 330 cells/uL (850-3900); Rast Aspergillus fumigatus IgG 17.3 mcg/mL (<2.0)
[2020-01-23] MEDS: IMIPENEM/CILASTATIN SODIUM 500 MG in DEXTROSE 5% 100 ML IV SCH ×4 (00:20→17:34)
[2020-01-23] MEDS: HYDROCORTISONE SOD 50 MG in SYRINGE 0 ML IV SCH ×4 (02:07→20:19)
[2020-01-23] MEDS: INSULIN ASPART 100 UNITS/ML 3 ML PEN SC SCH ×5 (07:59→20:49)
[2020-01-23] MEDS: FLUDROCORTISONE ACETATE 0.1 MG TAB PO SCH (08:37)
[2020-01-23] MEDS: AZITHROMYCIN 250 MG TAB PO SCH (08:37)
[2020-01-23] MEDS: FOLIC ACID 1 MG TAB PO SCH (08:38)
[2020-01-23] MEDS: THIAMINE HCL 100 MG TAB PO SCH (08:38)
--- NOTE | 2020-01-23 09:28 | Hospitalist Progress Note ---
Date of Service January 23, 2020 Assessment & Plan (1) Pneumonia: Mir Salgado is a 49-year-old man with a past medical history of sepsis after a dental procedure two years ago who presented with sepsis from an apparent bacterial pneumonia admitted to the ICU, BP low requiring pressors initially. HIV prelim. positive, awaiting confirmatory HIV testing, CD4 and viral load. Pneumonia -CXR and CT demonstrating dense lobar consolidation, on admission procalcitonin positive, lactate negative. -Was started on Cefepime, Vancomycin and Azithromycin initially - DC'd -Currently on Primaxin for continued treatment of presumed CAP -TB testing QFT indeterminate, however, NGTD on AFB's -Beta-1(1,3)-D-Glucan positive at 307 with concern for Pneumocystis Pneumonia, however, patients clinical picture more indicative of severe CAP -Comfortable on room air HIV/AIDS -Positive status since this admission, patient denying prior history or knowledge of HIV positive status -ID Consult Dr. Lawrence -Awaiting recommendations on antiretroviral therapy -Patient will require prophylaxis as CD4 counts at 5, will discuss with ID, but will likely need Bactrim and possible Fluconazole/Itraconazole -CD4 absolute counts 5 -Viral lode 773,000 Hypokalemia -Potassium at 3.1 this AM -Repleted with 40meq Klor-con Anemia -Continue to monitor -Repeat CBC in AM Atrial fibrillation -Cardiology consulted -Converted on Amiodarone, currently NSR FEN/GI: DM2 diet Code Status: Full code DVT PPX: Ambulation Dispo: Med/Surg (2) Dehydration: Admission and Anticipated Discharge Date Admission Date: January 15, 2020 Supervising Physician Co-Signing Physician Notes I personally examined the patient and verified all espinal points of history and exam, discussed case, and agree with decision making with Dr Aparicio doing better breathing better no new issues today. awaiting further input from ID and ongoing IV abx vitals noted nad heent nc at mmm breathing unlabored no accessory muscles good effort skin no rashes no pallor or icterus pneumonia - seems concerning for post-viral secondary overgrowth. certainly sx would be consistent with having had covid prior and then getting secondary overgrowth. HIV (+) w very low CD4 broadens ddx but overall clinical course has been consistent with that of severe CAP - and he has gotten better with treatment for such. suspect HIV/low CD4 immune suppression may have been how he got so sick so quickly with this but probably not that he has a current opportunistic infection. will need proph regimen to be determined by ID as well as HIV regimen. looking like hopefully home in ~24hrs (particularly after further input from ID) Subjective Patient evaluated at the bedside this morning. Noted that he was feeling well and that his breathing was well. No complaints of fever, chills, SOB, chest pain, abdominal pain. Review of Systems Constitutional: no fever, no chills, no fatigue and no weakness Respiratory: no cough, no dyspnea and no pain on inspiration Cardiovascular: no chest pain, no dyspnea on exertion and no palpitations Gastrointestinal: no abdominal pain, no nausea and no vomiting Physical Exam Constitutional: well developed and well nourished; no acute distress Respiratory: normal respiratory effort; no retractions and no cough Auscultation: no diminished lung sounds, no crackles, no rales and no wheezes Cardiovascular: RRR, no murmur, no edema Gastrointestinal (Abdomen): normal bowel sounds, soft, nontender, no hepatosplenomegaly Results & Data Results & Data ([facility]) Vital Signs (Past 12 Hours) Vital Signs Temp Pulse Pulse Resp BP Pulse Ox 01/23/20 08:00 36.4 C L 55 L 22 109/60 95 01/22/20 23:46 36.8 C 55 L 18 107/51 L 96 Resident Activity Tracking Resident Involvement: Resident Care Provided Care Provided: Adult [facility] Medicine (1) Pneumonia Laterality: right Lung location: lower lobe of lung Pneumonia type: due to unspecified organism Qualified Code(s): J18.9 - Pneumonia, unspecified organism
[2020-01-23 09:40] LABS: BUN Creatinine Ratio 21.9 (10-20); Calcium 8.5 mg/dl (8.5-10.1); Creatinine Clr Calc Pharmacy 142.5 ml/min; Est GFR (African American) 137.8; Est GFR (Non-African American) 118.9; Potassium 3.1 mmol/L (3.5-5.1)
[2020-01-23] MEDS ORDERED: POTASSIUM CHLORIDE 20 MEQ TABCR PO STA (11:07)
--- NOTE | 2020-01-23 16:32 | Billing Data ---
Date of Service January 23, 2020 Coding Level of Care Code 20296 Subseq Hosp Care Lvl 3
[2020-01-24] MEDS: IMIPENEM/CILASTATIN SODIUM 500 MG in DEXTROSE 5% 100 ML IV SCH ×2 (00:07→06:16)
[2020-01-24] MEDS: HYDROCORTISONE SOD 50 MG in SYRINGE 0 ML IV SCH ×3 (02:11→13:23)
[2020-01-24 06:37] LABS: Hematocrit (blood only) 23.8 % (42-52); Hemoglobin 7.9 g/dL (14.0-18.0); Mean Corpuscular Hemoglobin 30.2 pg (25-34); Mean Corpuscular Hgb Conc 33.2 g/dL (32-36); Mean Corpuscular Volume 90.8 fL (80-100); Mean Platelet Volume 11.1 fL (7.4-10.4); Nucleated RBC # (auto) 0.08 K/uL (0-0); Platelet Count 134 K/uL (130-400); RDW Coefficient of Variation 16.1 % (11.5-14.5); RDW Standard Deviation 46.1 fL (36.4-46.3); Red Blood Count 2.62 M/uL (4.7-6.1); White Blood Count 2.81 K/uL (4.8-10.8)
[2020-01-24 07:09] LABS: BUN Creatinine Ratio 28.6 (10-20); Calcium 8.1 mg/dl (8.5-10.1); Creatinine Clr Calc Pharmacy 172.1 ml/min; Est GFR (African American) 148.9; Est GFR (Non-African American) 128.5; Potassium 3.2 mmol/L (3.5-5.1)
[2020-01-24 07:48] LABS: ALC (manual) 0.77 K/uL (1.2-3.4); ANC (manual) 1.75 K/uL (1.4-6.5); Basophils # (manual) 0.04 K/uL (0-0.2); Basophils % (manual) 1.3 %; Giant Platelets 1+; Lymphocytes # (manual) 0.77 K/uL (1.2-3.4); Lymphocytes % (manual) 27.5 %; Metamyelocytes # (manual) 0.07 K/uL (0-0); Metamyelocytes % (manual) 2.5 %; Monocytes # (manual) 0.11 K/uL (0.11-0.59); Monocytes % (manual) 3.8 %; Myelocytes # (manual) 0.07 K/uL (0-0); Myelocytes % (manual) 2.5 %; Neutrophils # (manual) 1.75 K/uL (1.4-6.5); Neutrophils % (manual) 62.4 %; Ovalocytes 1+; Polychromasia 1+; Tear Drop Cells 1+
[2020-01-24] MEDS: INSULIN ASPART 100 UNITS/ML 3 ML PEN SC SCH ×4 (07:55→20:26)
[2020-01-24] MEDS: FLUDROCORTISONE ACETATE 0.1 MG TAB PO SCH (08:24)
[2020-01-24] MEDS: THIAMINE HCL 100 MG TAB PO SCH (08:24)
[2020-01-24] MEDS: FOLIC ACID 1 MG TAB PO SCH (08:24)
[2020-01-24] MEDS ORDERED: POTASSIUM CHLORIDE 20 MEQ TABCR PO STA (09:54)
--- NOTE | 2020-01-24 11:12 | Hospitalist Progress Note ---
Date of Service January 24, 2020 Assessment & Plan (1) Pneumonia: Mir Salgado is a 49-year-old man with a past medical history of sepsis after a dental procedure two years ago who presented with sepsis from an apparent bacterial pneumonia admitted to the ICU, BP low requiring pressors initially. HIV positive CD4 - 5 and viral load 773,000 ID onboard. Pneumonia -CXR and CT demonstrating dense lobar consolidation, on admission procalcitonin positive, lactate negative. -Was started on Cefepime, Vancomycin and Azithromycin initially - DC'd -Currently on Primaxin for continued treatment of presumed CAP -Consider transition to Bactrim for treatment of PNA and then transition to prophylactic dose -NGTD on AFB's -Beta-1(1,3)-D-Glucan positive at 307 with concern for Pneumocystis Pneumonia, however, patients clinical picture more indicative of severe CAP -Comfortable on room air HIV/AIDS, CD4 absolute counts 5, Viral lode 773,000 -Positive status since this admission, patient denying prior history or knowledge of HIV positive status -ID Consult Dr. Lawrence -Awaiting recommendations on antiretroviral therapy -Patient will require prophylaxis as CD4 counts at 5, will discuss with ID, but will likely need Bactrim and possible Fluconazole/Itraconazole Low cortisole level - random level 4.4 in the ICU - Was on stress dose steroids, Hydrocortisone 50mg IV Q6H, day 7 - discussed case with endocrinology w/ rec. for stim. test in the morning - Holding steroids prior to stim test Hypokalemia -Potassium at 3.1 this AM -Repleted with 40meq Klor-con -Repeat BMP in AM Anemia -Continue to monitor -Repeat CBC in AM Atrial fibrillation -Cardiology consulted -Converted on Amiodarone, currently NSR -low CHADSVASC score. FEN/GI: DM2 diet Code Status: Full code DVT PPX: Ambulation Dispo: Med/Surg (2) Dehydration: Admission and Anticipated Discharge Date Admission Date: January 15, 2020 Supervising Physician Co-Signing Physician Notes Resident Physician Supervision Note: I independently interviewed and examined the patient and verified the espinal history and physical, reviewed labs and image studies, discussed the case with the resident Dr. Flynn and agree with the findings and care plan. Subjective Doing well this morning. In regard to transportation he brought up that he would be able to use [facility] transportation. He did not have any questions or concerns after our discussion. Review of Systems Review of Systems: Constitutional: denies fevers, chills Cardiac: denies chest pain, palpitations Pulmonary: denies shortness of breath GI: denies abdominal pain Physical Exam Physical Exam: Eyes: PERRL, conjunctivae normal, anicteric sclerae ENMT: external ear and nose normal, oropharynx normal Neck: normal visual inspection Respiratory: no respiratory distress and no labored breathing Cardiovascular: RRR, no murmur, no edema Chest (Breasts): normal inspection/palpation of breasts Gastrointestinal (Abdomen): Inspection/Auscultation: abdomen normal to inspection Skin: no rashes, warm and dry Neurologic: + confused (sleepy, unable to answer questions) Psychiatric: A+Ox3, euthymic affect Results & Data Results & Data ([facility]) Vital Signs (Past 12 Hours) Vital Signs Temp Pulse Resp BP Pulse Ox 01/24/20 07:12 36.6 C 53 L 20 111/60 94 CBC Results Results Complete Blood Count Results: RBC 2.62 M/uL (4.7-6.1) L 01/24/20 WBC 2.81 K/uL (4.8-10.8) L 01/24/20 Hgb 7.9 g/dL (14.0-18.0) L 01/24/20 Hct 23.8 % (42-52) L 01/24/20 Plt Count 134 K/uL (130-400) 01/24/20 Chemistry (BMP) Results [facility] Results: Sodium 144 mmol/L (136-145) 01/24/20 Potassium 3.2 mmol/L (3.5-5.1) L 01/24/20 Chloride 107 mmol/L (98-107) 01/24/20 BUN 14 mg/dl (7-18) 01/24/20 Creatinine 0.48 mg/dl (0.6-1.4) L 01/24/20 Glucose 123 mg/dl (70-99) H 01/24/20 Resident Activity Tracking Resident Involvement: Resident Care Provided Care Provided: Adult [facility] Medicine (1) Pneumonia Laterality: right Lung location: lower lobe of lung Pneumonia type: due to unspecified organism Qualified Code(s): J18.9 - Pneumonia, unspecified organism
[2020-01-24 13:47] LABS: HIV 1 Ab POSITIVE (NEGATIVE); HIV 2 Ab NEGATIVE (NEGATIVE)
[2020-01-25 07:56] LABS: Hematocrit (blood only) 28.4 % (42-52); Hemoglobin 9.2 g/dL (14.0-18.0); Mean Corpuscular Hemoglobin 29.8 pg (25-34); Mean Corpuscular Hgb Conc 32.4 g/dL (32-36); Mean Corpuscular Volume 91.9 fL (80-100); Mean Platelet Volume 10.5 fL (7.4-10.4); Nucleated RBC # (auto) 0.09 K/uL (0-0); Nucleated RBC % (auto) 2.1 %; Platelet Count 142 K/uL (130-400); RDW Coefficient of Variation 17.4 % (11.5-14.5); RDW Standard Deviation 48.7 fL (36.4-46.3); Red Blood Count 3.09 M/uL (4.7-6.1); White Blood Count 4.39 K/uL (4.8-10.8)
[2020-01-25 08:19] LABS: BUN Creatinine Ratio 29.6 (10-20); Calcium 8.2 mg/dl (8.5-10.1); Creatinine Clr Calc Pharmacy 133.3 ml/min; Est GFR (African American) 134.1; Est GFR (Non-African American) 115.7; Magnesium 2.4 mg/dl (1.8-2.4); Potassium 3.3 mmol/L (3.5-5.1)
[2020-01-25] MEDS: INSULIN ASPART 100 UNITS/ML 3 ML PEN SC SCH ×2 (08:33→11:42)
[2020-01-25] MEDS ORDERED: COSYNTROPIN 1 MCG in SYRINGE 0 ML IV ONE (09:00)
[2020-01-25 09:02] LABS: ANC (manual) 3.46 K/uL (1.4-6.5); Lymphocytes % (manual) 18.3 %; Monocytes # (manual) 0.06 K/uL (0.11-0.59); Monocytes % (manual) 1.4 %; Myelocytes # (manual) 0.06 K/uL (0-0); Myelocytes % (manual) 1.4 %; Neutrophils # (manual) 3.46 K/uL (1.4-6.5); Neutrophils % (manual) 78.9 %; Ovalocytes 1+; Polychromasia 1+; Tear Drop Cells 1+
[2020-01-25] MEDS: THIAMINE HCL 100 MG TAB PO SCH (09:41)
[2020-01-25] MEDS: FOLIC ACID 1 MG TAB PO SCH (09:41)
--- NOTE | 2020-01-25 11:12 | Discharge Summary ---
Date of Service January 25, 2020 Admission HPI Per Admitting Provider Mir Salgado is a 49 year old man with a past medical history significant of sepsis from a dental infection who presents today for general illness. He tells me he has been sick for the past month. About five weeks ago his roommate was ill with a respiratory illness of some sort and he became ill shortly thereafter. He has not sought medical care but has been very short of breath with fevers chills and lightheadedness. He felt that he got much better last week, but then this week has been ill again worse than ever. He has not taken anything except ibuprofen he has been eating and drinking very poorly for past few weeks. He has not been tested for covid, does not have routine primary care. Has a history of drug use, but tells me he has not used anything in a very long time, denies any history of any IV drug use. Non smoker no alcohol use in months. On presentation to ED patient was found to be tachycardic with pulse rates in the 130's, Hypotensive as low as 70's/50's, febrile with temp of 37.9, and tachypneic with rates in the low twenties. Labwork significant for anemia hgb of 9.3, Neutropenia with ANC of .82, elevated INR of 1.3, elevated APTT of 33.7, hyponatremia, hypokalemia of 3.0, hypoalbuminemia of 2.6. Patient was placed on cefepime and vancomycin and given three liters of NSS with poor response of blood pressure remaining 70's/50's. Decision was made to transfer patient to ICU for pressor support. Admission Exam Per Admitting Provider Constitutional ill-appearing 49-year-old man appearing very uncomfortable in bed Eyes: Pupils equal round reactive to light and accommodation bilaterally, extraocular muscle movements intact bilaterally, anicteric sclerae Respiratory: Coarse lung sounds bilaterally decreased on the right, crackles bilateral bases, expiratory wheezes louder on right than left, patient is using accessory muscles to breathe Cardiovascular: Tachycardic regular rhythm, no murmurs no rubs no skips no gallops, peripheral pulses weak femoral pulse easily palpated GI: Abdomen soft nontender no masses no hepatomegaly Neuro: Sluggishly awake, oriented to person place time and situation, closes eyes when nothing spoken to Principal Diagnosis Pneumonia HIV Discharge Exam Constitutional WD/WN, vitals as above Eyes PERRL, conjunctivae normal, anicteric sclerae ENMT external ear and nose normal, oropharynx normal Neck normal visual inspection Respiratory normal respiratory effort, lungs clear to auscultation Cardiovascular RRR, no murmur, no edema Gastrointestinal (Abdomen) normal bowel sounds, soft, nontender, no hepatosplenomegaly Skin no rashes, warm and dry Psychiatric A+Ox3, euthymic affect Discharge Data Allergies Allergy/AdvReac Type Severity Reaction Status Date / Time amoxicillin [From Augmentin] Allergy Severe rash, Verified 10/07/18 13:13 swelling in hands and legs clavulanic acid Allergy Severe rash, Verified 10/07/18 13:13 [From Augmentin] swelling in hands and legs clindamycin Allergy Intermediate Rash and Verified 10/07/18 13:13 extremity swelling Consultations 01/15/20 23:07 Consult Case Management - Discharge Planning Routine Consult Client Relationship Executive Routine 01/17/20 16:14 Consult Infectious Diseases Routine 01/18/20 09:44 Consult Cardiology Routine Ordered Studies 01/15/20 23:07 CT chest wo con Urgent Hospital Course (1) Pneumonia: Mir Salgado is a 49-year-old man with a past medical history of sepsis after a dental procedure two years ago who presented with sepsis from bacterial pneumonia admitted to the ICU, BP low requiring pressors initially, clinical course improved over hospital stay. Found to have HIV w/ CD4 count - 5 and viral load - 773,000, ID onboard with Dr. Lawrence consulted. Pneumonia in setting of AIDS -CXR and CT demonstrated dense lobar consolidation, on admission procalcitonin positive, lactate negative. -Was started on Cefepime, Vancomycin and Azithromycin initially - Transitioned to Primaxin -Bronchial washings with findings of MSSA -transition to Bactrim for treatment of PNA and then transition to prophylactic dose after 4 days of DS BID as outpatient for toxo/PJP prevention -NGTD on AFB's -Beta-1(1,3)-D-Glucan positive at 307 but patients clinical picture more indicative of severe CAP -No hypoxia. HIV/AIDS, CD4 absolute counts - 5, Viral load - 773,000 -Patient denying prior history or knowledge of HIV positive status -ID Consult Dr. Lawrence -started Bactrim 1 DS tab daily for toxo, PJP prophylaxis -started Azithromycin 1200mg weekly for MAC prophylaxis -started SANDERS with Biktarvy -follow up with Dr. Lawrence with ID in [place] Low cortisole level - random level 4.4 in the ICU - Was on stress dose steroids, Hydrocortisone 50mg IV Q6H, 7 days - discussed case with endocrinology w/ rec. for stim. test, which was normal - discharged w/o steroids Hypokalemia -Potassium at 3.3 this AM with normal Mg. -Repleted with 40meq Klor-con -Repeat BMP in one week Anemia -has improved over hospital course to 9.2 -Repeat CBC in one week Atrial fibrillation -Cardiology consulted -Converted on Amiodarone, currently NSR Total Time Total Time Spent Total Time Spent (In Minutes): see attending attestation Discharge Plan Discharge Items Patient Disposition: Home - Self-Care Reason For Visit: SEPSIS PNEUMONIA Discharge Diagnosis: Pneumonia HIV Condition on Discharge: Critical Activity: Per Instructions section Non-emergency contact: Primary Care Provider Call non-emergency contact if: you have any medication questions Follow-up/Referrals: Yesi Allen DO [Primary Care Provider] - 01/31/20 2:20 pm (You have an appt on Tuesday 01/30 at 2:20pm. [address] [place] [address] ) Jc Lawrence II, DO [Physician] - 02/23/20 11:00 am (You have an appt with Dr Lawrence on Feb 22 at 11am. This appt is in [place] at [address] ) Diet: Regular Addtl Attending Provider Instructions: Pneumonia You developed pneumonia prior to coming into the hospital. You were treated with IV antibiotics, and these were transitioned to oral antibiotics prior to leaving the hospital. Follow the instructions for the antibiotics that we discussed. HIV You were diagnosed with HIV while you were in the hospital. With HIV it will be important to follow up with an infectious disease (ID) doctor (Melinda) when you leave the hospital. You will have to start HIV antiretroviral therapy (SANDERS) to treat the HIV. It is important that you consistently take this medication once you start it at the same time every day. One of the numbers that we track in your progress with HIV is call the CD4 count. The CD4 count is a measure of your bodies a ability to fight infections. Your CD4 count is currently low. As you treat your HIV this number should improve. You will be required to take antibiotics until your CD4 count improves to prevent you from developing another infection. Avoid cat feces as this is a potential cause for an infection you would be at risk for. Ensure you are washing you hands frequently to avoid getting infections. Were a mask and avoid areas where people congregate. You will need to discuss getting vaccinations with your primary. Follow up - You will need to follow up with your new primary doctor in the next several days after leaving the hospital. Ideally within 5 days. - You will need to set up with an infectious disease doctor to manage your HIV outside of the hospital. Return precautions If you develop fever, worsening cough, or shortness of breath you should call or come in to get evaluated. Pending Studies at Discharge: Yes Stand-Alone Forms: My [facility], Smoking Cessation Medications and DC Order Prescriptions: New Biktarvy 50-200-25 mg tablet 1 tab PO DAILY Qty: 30 RF: 0 sulfamethoxazole-trimethoprim 800-160 mg tablet See Rx Instructions .ROUTE .COMPLEX 30 Days Qty: 34 RF: 0 azithromycin 600 mg tablet 1,200 mg PO .weekly Qty: 8 RF: 0 Continued ibuprofen [Advil Liqui-Gel] 200 mg Capsule 400 mg PO Q6H PRN (Reason: Fever Or Pain) RF: 0 Discharge Orders: Discharge Order (Routine); Ordered 01/25/20 Ordered By: Darwin Flynn Admission Data Admit Date/Time: 01/15/20 21:52 Attending Provider: Petra Shaw Admit Provider: Lul Diop Primary Care Provider: Yesi Allen Other Providers: Miguel Angel Cortés Muqueet ; Reynold Valladares ; Geraldine Zee ; Yo Khan I. ; Jc Lawrence II ; Lavinia Byrd ; Hermelindo Menjivar ; Javier Vickers ; Adolfo Epps ; Kobe Mora ; Les Witt ; Myke Foster ; Castro Red Jr ; Beto Fermin ; Suzy Goldman ; Thea Armstrong ; Miguel Angel Case ; Miguel Angel Tejeda ; Wilman Powers ; Mamadou Burton ; Melissa Leon ; Alma Alexis ; Sinan Guerin ; Bill Paredes ; Sal Heard Other Interventions: Discharge Summary Assessment (RN) Last Done: 01/25/20 11:09 Supervising Physician Co-Signing Physician Notes Resident Physician Supervision Note: I independently interviewed and examined the patient and verified the espinal history and physical, reviewed labs and image studies, discussed the case with the resident Dr. Flynn and agree with the findings and care plan. Time spent in discharge 35 min Resident Activity Tracking Resident Involvement: Resident Care Provided Care Provided: Adult [facility] Medicine CBC Results Results Complete Blood Count Results: RBC 3.09 M/uL (4.7-6.1) L 01/25/20 WBC 4.39 K/uL (4.8-10.8) L 01/25/20 Hgb 9.2 g/dL (14.0-18.0) L 01/25/20 Hct 28.4 % (42-52) L 01/25/20 Plt Count 142 K/uL (130-400) 01/25/20 Chemistry (BMP) Results BMP Results: Sodium 145 mmol/L (136-145) 01/25/20 Potassium 3.3 mmol/L (3.5-5.1) L 01/25/20 Chloride 107 mmol/L (98-107) 01/25/20 BUN 18 mg/dl (7-18) 01/25/20 Creatinine 0.62 mg/dl (0.6-1.4) 01/25/20 Glucose 69 mg/dl (70-99) L 01/25/20
[2020-02-01 04:28] LABS: HIV 1 RNA PCR Copies/ML 277000 Copies/mL; HIV-1 RNA Log Copies/mL 5.44 Log cps/mL
== END 2020-01-25 15:46 | disposition home or self-care (01) | DRG 974 ==
LOC: ED 18:43 → SUATTDRO 21:52 → 1E 21:52 → 2S 01-20 18:49 → 2N 01-22 20:03